=== PATIENT | male | born 1935 | race Caucasian/White ===

== ENCOUNTER 2016-11-03 17:19 | Inpatient (IN) | payer MEDICARE, OTHER ==
[2016-11-03] MEDS: NS 0.9% 1000 ML* 2,000 ML IV ONE ×2 (17:20→17:46)
[2016-11-03 17:37] LABS: Hematocrit 31 % (42-52); Mean Corpuscular HGB Conc 32 g/dl (31-36); Mean Corpuscular Hemoglobin 31 pg (27-31); Mean Corpuscular Volume 97 fL (80-94); Mean Platelet Volume 6 um3 (7.4-10.4); Red Blood Count 3.24 10^6/ul (4.0-5.4); Red Cell Distribution Width 16 % (10.5-15); White Blood Count 14.8 10^3/ul (3.5-10.8)
--- NOTE | 2016-11-03 17:49 | RAD ---
INDICATION: Altered mental status. COMPARISON: Comparison is made with a prior chest x-ray study from September 14, 2016. TECHNIQUE: A portable view of the chest was obtained. FINDINGS: There is a dual-chamber transvenous cardiac pacemaker present. The heart is within normal limits in size. The lungs are hyperinflated and clear. No pleural effusion is seen. IMPRESSION: NO EVIDENCE FOR ACUTE DISEASE.
[2016-11-03 17:51] LABS: ALT 8 U/L (7-52); AST 11 U/L (13-39); Albumin 2.5 g/dL (3.2-5.2); Alkaline Phosphatase 27 U/L (34-104); Anion Gap 12 mmol/L (2-11); BUN/Creatinine Ratio 16.7 (8-20); Blood Urea Nitrogen 19 mg/dL (6-24); C Reactive Protein < 1.00 mg/L (< 5.00); CO2 Carbon Dioxide 15 mmol/L (22-32); Calcium 7.2 mg/dL (8.6-10.3); Chloride 114 mmol/L (101-111); Creatine Kinase 38 U/L (10-223); EGFR African American 79.1 (>60); EGFR Non-African American 61.5 (>60); Globulin 1.7 g/dL (2-4); Glucose 257 mg/dL (70-100); Magnesium 1.6 mg/dL (1.9-2.7); Potassium 3.5 mmol/L (3.5-5.0); Sodium 141 mmol/L (133-145); Total Protein 4.2 g/dL (6.4-8.9)
[2016-11-03 18:02] LABS: Troponin I 0.04 ng/mL (<0.04)
[2016-11-03 18:31] LABS: Acetaminophen < 15 mcg/mL; Alcohol < 10 mg/dL (<10); Salicylate < 2.50 mg/dL (<30)
[2016-11-03 18:41] LABS: TSH (Thyroid Stimulating Horm) 3.35 mcIU/mL (0.34-5.60)
--- NOTE | 2016-11-03 19:41 | ED ---
Josef Tomlin Janilya, scribed for Cecilio Soto MD on 11/03/16 at 1753 . Laceration/Wound HPI - HPI Summary HPI Summary: A 81 y/o was BIBA for self-inflicted bilateral anterior wrist lacerations starting today at approx 1650. Police and EMS was called by pt's . When police arrived, pt was found in the bedroom. Pt cut both of his arms in the bathroom with two steak knives. Per EMS and police, there was significant amount of blood in the bathtub, approx 6 inches deep. In hospital, pt reports he cut himself in order to commit suicide. Pt denies being in pain, but does state he is extremely cold and shaky. PMHx pacemaker, afib, pneumonia. - History of Current Complaint Stated Complaint: ARM LACERATIONS Time Seen by Provider: 11/03/16 17:21 Hx Obtained From: Patient, EMS Mechanism of Injury: Sharp/Blunt Trauma Onset/Duration: Sudden Onset Alleviating: Compression Timing: Constant Onset Severity: Moderate Current Severity: Moderate - Additional Pertinent History Primary Care Physician: [id number] - Allergy/Home Medications Allergies/Adverse Reactions: Allergies Allergy/AdvReac Type Severity Reaction Status Date / Time No Known Allergies Allergy Verified 01/19/16 19:24 Home Medications: Home Medications Acetaminophen TAB* [Tylenol TAB*] 500 mg PO BEDTIME 11/03/16 [History Confirmed 11/03/16] PMH/Surg Hx/FS Hx/Imm Hx Endocrine/Hematology History: Reports: Hx Anemia Denies: Hx Diabetes Cardiovascular History: Denies: Hx Hypertension Respiratory History: Reports: Hx Pneumonia, Other Respiratory Problems/ Disorders - PNEUMONIA GI History: Reports: Hx Irritable Bowel Denies: Hx Jaundice History: Denies: Hx Renal Disease Musculoskeletal History: Reports: Hx Back Problems, Other Musculoskeletal History - Resloved Herniated Disk, Bilat Knee Replacement Sensory History: Reports: Hx Contacts or Glasses Opthamlomology History: Reports: Hx Contacts or Glasses Neurological History: Reports: Other Neuro Impairments/Disorders - admitted with hyponatremia and ams - Surgical History Surgery Procedure, Year, and Place: Appendectomy, Bilat. Knee Replacement Infectious Disease History: No Infectious Disease History: Denies: Traveled Outside the [place] in Last 30 Days - Family History Known Family History: Negative: Cardiac Disease, Hypertension, Diabetes - Social History Lives: With Family Alcohol Use: None Substance Use Type: Reports: None Smoking Status (MU): Never Smoked Tobacco Review of Systems Negative: Fever Positive: Other - lacerations on both arms All Other Systems Reviewed And Are Negative: Yes Physical Exam Triage Information Reviewed: Yes Vital Signs On Initial Exam: Initial Vitals Temp Pulse Resp BP Pulse Ox 96.7 F 105 17 164/71 93 11/03/16 17:21 11/03/16 17:21 11/03/16 17:21 11/03/16 17:21 11/03/16 17:21 Vital Signs Reviewed: Yes Appearance: Positive: Well-Appearing, No Pain Distress Skin: Positive: Other - bilateral anterior wrist lacerations. Both 4.5cm SC with venous bleeding. No arterial or tendon involvement. Lacerations sutured by PA. Head/Face: Positive: Normal Head/Face Inspection Eyes: Positive: EOMI, ODALYS ENT: Positive: Normal ENT inspection Neck: Positive: Supple, Nontender Respiratory/Lung Sounds: Positive: Clear to Auscultation, Breath Sounds Present Cardiovascular: Positive: RRR Abdomen Description: Positive: Nontender, Soft Bowel Sounds: Positive: Present Musculoskeletal: Positive: Normal, Strength/ROM Intact Neurological: Positive: Normal, Sensory/Motor Intact, Alert, Oriented to Person Place, Time Psychiatric: Positive: Affect/Mood Appropriate Diagnostics - Vital Signs Vital Signs Temp Pulse Resp BP Pulse Ox 11/03/16 17:21 96.7 F 105 17 164/71 93 - Laboratory Lab Results: Lab Results 11/03/16 11/03/16 11/03/16 Range/Units 17:25 17:25 17:25 WBC 14.8 H (3.5-10.8) 10^3/ul RBC 3.24 L (4.0-5.4) 10^6/ul Hgb 10.0 L (14.0-18.0) g/dl Hct 31 L (42-52) % MCV 97 H (80-94) fL MCH 31 (27-31) pg MCHC 32 (31-36) g/dl RDW 16 H (10.5-15) % Plt Count 191 (150-450) 10^3/ul MPV 6 L (7.4-10.4) um3 Neut % (Auto) 83.6 H (38-83) % Lymph % (Auto) 9.8 L (25-47) % Grimes % (Auto) 6.2 (1-9) % Eos % (Auto) 0.1 (0-6) % Baso % (Auto) 0.3 (0-2) % Absolute Neuts (auto) 12.3 H (1.5-7.7) 10^3/ul Absolute Lymphs (auto) 1.4 (1.0-4.8) 10^3/ul Absolute Monos (auto) 0.9 H (0-0.8) 10^3/ul Absolute Eos (auto) 0 (0-0.6) 10^3/ul Absolute Basos (auto) 0 (0-0.2) 10^3/ul Absolute Nucleated RBC 0 10^3/ul Nucleated RBC % 0 INR (Anticoag Therapy) 1.12 H (0.89-1.11) APTT 26.7 (26.0-36.3) seconds Sodium 141 (133-145) mmol/L Potassium 3.5 (3.5-5.0) mmol/L Chloride 114 H (101-111) mmol/L Carbon Dioxide 15 L (22-32) mmol/L Anion Gap 12 H (2-11) mmol/L BUN 19 (6-24) mg/dL Creatinine 1.14 (0.67-1.17) mg/dL Est GFR ( Amer) 79.1 (>60) Est GFR (Non-Af Amer) 61.5 (>60) BUN/Creatinine Ratio 16.7 (8-20) Glucose 257 H (70-100) mg/dL Lactic Acid (0.5-2.0) mmol/L Calcium 7.2 L (8.6-10.3) mg/dL Magnesium 1.6 L (1.9-2.7) mg/dL Total Bilirubin 1.70 H (0.2-1.0) mg/dL AST 11 L (13-39) U/L ALT 8 (7-52) U/L Alkaline Phosphatase 27 L (34-104) U/L Total Creatine Kinase 38 (10-223) U/L CK-MB (CK-2) 2.2 (0.6-6.3) ng/mL Troponin I 0.04 H* (<0.04) ng/mL C-Reactive Protein < 1.00 (< 5.00) mg/L B-Natriuretic Peptide ( - 100) pg/mL Total Protein 4.2 L (6.4-8.9) g/dL Albumin 2.5 L (3.2-5.2) g/dL Globulin 1.7 L (2-4) g/dL Albumin/Globulin Ratio 1.5 (1-3) TSH 3.35 (0.34-5.60) mcIU/mL Salicylates < 2.50 (<30) mg/dL Acetaminophen < 15 mcg/mL Serum Alcohol < 10 (<10) mg/dL Blood Type Antibody Screen Crossmatch 11/03/16 11/03/16 11/03/16 Range/Units 17:25 17:25 17:25 WBC (3.5-10.8) 10^3/ul RBC (4.0-5.4) 10^6/ul Hgb (14.0-18.0) g/dl Hct (42-52) % MCV (80-94) fL MCH (27-31) pg MCHC (31-36) g/dl RDW (10.5-15) % Plt Count (150-450) 10^3/ul MPV (7.4-10.4) um3 Neut % (Auto) (38-83) % Lymph % (Auto) (25-47) % Grimes % (Auto) (1-9) % Eos % (Auto) (0-6) % Baso % (Auto) (0-2) % Absolute Neuts (auto) (1.5-7.7) 10^3/ul Absolute Lymphs (auto) (1.0-4.8) 10^3/ul Absolute Monos (auto) (0-0.8) 10^3/ul Absolute Eos (auto) (0-0.6) 10^3/ul Absolute Basos (auto) (0-0.2) 10^3/ul Absolute Nucleated RBC 10^3/ul Nucleated RBC % INR (Anticoag Therapy) (0.89-1.11) APTT (26.0-36.3) seconds Sodium (133-145) mmol/L Potassium (3.5-5.0) mmol/L Chloride (101-111) mmol/L Carbon Dioxide (22-32) mmol/L Anion Gap (2-11) mmol/L BUN (6-24) mg/dL Creatinine (0.67-1.17) mg/dL Est GFR ( Amer) (>60) Est GFR (Non-Af Amer) (>60) BUN/Creatinine Ratio (8-20) Glucose (70-100) mg/dL Lactic Acid 9.4 H* (0.5-2.0) mmol/L Calcium (8.6-10.3) mg/dL Magnesium (1.9-2.7) mg/dL Total Bilirubin (0.2-1.0) mg/dL AST (13-39) U/L ALT (7-52) U/L Alkaline Phosphatase (34-104) U/L Total Creatine Kinase (10-223) U/L CK-MB (CK-2) (0.6-6.3) ng/mL Troponin I (<0.04) ng/mL C-Reactive Protein (< 5.00) mg/L B-Natriuretic Peptide 46 ( - 100) pg/mL Total Protein (6.4-8.9) g/dL Albumin (3.2-5.2) g/dL Globulin (2-4) g/dL Albumin/Globulin Ratio (1-3) TSH (0.34-5.60) mcIU/mL Salicylates (<30) mg/dL Acetaminophen mcg/mL Serum Alcohol (<10) mg/dL Blood Type O Negative Antibody Screen Negative Crossmatch See Detail Result Diagrams: 11/03/16 17:25 11/03/16 17:25 Lab Statement: Any lab studies that have been ordered have been reviewed, and results considered in the medical decision making process. - Radiology CXR Xray Interpretation: No Acute Changes Radiology Interpretation Completed By: Radiologist - IMPRESSION: No evidence for acute disease. Re-Evaluation - Re-Evaluation First Eval Re-Evaluation Time: 18:15 Change: Improved Comment: There are bilateral subcutaneous lacerations of 4.5 cm. There is venous bleeding; no arterial bleeding. No obvious tendon injury. Laceration Repair Course/Dx - Course Assessment/Plan: PATIENT RESUSCITATED WITH NS 2L AND 2 UNITS PRBCS. B/L WRIST LACERATIONS; BOTH SC WITH VENOUS BLEEDING, NO ARTERIAL OR TENDON INJURY. HANDS/ WRISTS WITH FROM, FULL STRENGTH. AFTER REPAIR, NORMAL CAPILLARY REFILL. DUE TO THE HYPOVOLEMIC HYPOTENSIVE EPISODE WITH RAPID RESUSCITATION AND PATIENT'S AGE OF 81 YO, HE IS ADMITTED STABLE TO HOSPITALIST. MHE EVAL PENDING. - Clinical Impression Provider Diagnoses: Suicide attempt, Blood loss Discharge - Discharge Plan Condition: Stable Disposition: ADMITTED TO [facility] Referrals: Kishan Raymond MD [Primary Care Provider] - The documentation as recorded by the Josef gracia Janilya accurately reflects the service I personally performed and the decisions made by me, Cecilio Soto MD.
--- NOTE | 2016-11-03 19:49 | PN ---
Progress Note - Progress Note Note: Laceration of ventral side of wrists bilaterally. laceration to L wrist 4cm. Laceration to R wrist 4 cm. Patient cleaned and draped in sterile fashion. Local anesthetic used 1% lido without epi 3ml each wrist. monocryl 5-0 used non-absorbable sutures. 11 sutures in L wrist. 10 sutures in right wrist. Pressure dressing applied bilaterally.
[2016-11-03] MEDS ORDERED: Tetan/Diph/Pertus SYR(Tdap)* 0.5 ML SYR(BOOSTRIX) use SYR IM ONE (20:04)
[2016-11-03 20:10] LABS: Calcium (PTH Intact) 7.5 mg/dL (8.6-10.3)
[2016-11-03] MEDS ORDERED: Magnesium Sulfate 2 GM IV* 2 GM/50 ML BAG IVPB ONE (21:24)
[2016-11-03 23:03] LABS: Hematocrit 34 % (42-52); Hemoglobin 11.5 g/dl (14.0-18.0); Mean Corpuscular HGB Conc 34 g/dl (31-36); Mean Corpuscular Hemoglobin 31 pg (27-31); Mean Corpuscular Volume 90 fL (80-94); Mean Platelet Volume 7 um3 (7.4-10.4); Red Blood Count 3.77 10^6/ul (4.0-5.4); Red Cell Distribution Width 17 % (10.5-15); White Blood Count 13.9 10^3/ul (3.5-10.8)
[2016-11-03 23:18] LABS: BUN/Creatinine Ratio 23.2 (8-20); Calcium 8.2 mg/dL (8.6-10.3); EGFR African American 97.6 (>60); EGFR Non-African American 75.9 (>60); Globulin 1.9 g/dL (2-4); Potassium 4.5 mmol/L (3.5-5.0); Total Bilirubin 3.1 mg/dL (0.2-1.0); Total Protein 4.9 g/dL (6.4-8.9)
[2016-11-03] MEDS: Triazolam TAB* 0.25 MG PO SCH (23:52)
[2016-11-03] MEDS: Acetaminophen TAB* 325 MG PO PRN ×2 (23:53→23:59)
--- NOTE | 2016-11-04 00:28 | HP ---
ADMISSION HISTORY AND PHYSICAL: DATE OF ADMISSION: 11/03/16 PRIMARY CARE PROVIDER: Kishan Raymond MD ADMITTING PROVIDER: CHELSEA Faulkner SUPERVISING PHYSICIAN: Keaton Estrada MD * (DICTATED BY CHELSEA FAULKNER) CHIEF COMPLAINT: Suicide attempt. HISTORY OF PRESENT ILLNESS: This is an 81-year-old gentleman with a history of anxiety, irritable bowel syndrome, symptomatic bradycardia status post pacemaker insertion and paroxysmal atrial fibrillation, not currently anticoagulated who was brought to the emergency department by EMS after a suicide attempt. The patient attempted suicide by lacerating both of his wrists. He was awake and alert and apparently ambulatory at home when EMS arrived. There was a large volume of blood appreciated in both the bathtub and the patient's bedroom. The patient's was away for the afternoon and returned to find him in their bedroom at which point she contacted EMS. The patient received volume resuscitation in the emergency department and received 2 L of normal saline and 2 units of packed red blood cells. The patient has been suffering from declining health over the last several months. He has had significant weight loss and feelings of persistent chest pressure ever since his admission for pneumonia the last month. He finds this extremely uncomfortable and he is unable to lie in a flat position, which used to provide some relief for some chronic back pain. He did see his primary care provider, Dr. Kishan Raymond, recently for this complaint and has been referred to Pulmonology and has other pending workup. The patient cites this decline in his health status as the inciting factor for his suicide attempt. The patient reports that he is frustrated at failing at his suicide attempt and if he was given the opportunity to decisively in the next several minutes, he would take it. The patient did leave a note for his to find. There is no history of prior suicide attempts or ideations. The patient's was not aware of any significant depression that led to this event this evening. PAST MEDICAL HISTORY: 1. Symptomatic bradycardia status post pacemaker insertion. 2. Irritable bowel syndrome. 3. Anxiety. 4. BPH. 5. Glaucoma. 6. History of paroxysmal atrial fibrillation for which he declined anticoagulation. 7. Recent hospital admission for pneumonia and SIADH. PAST SURGICAL HISTORY: 1. Bilateral total knee arthroplasty. 2. Pacemaker insertion in June 2016. HOME MEDICATIONS: 1. Acetaminophen 500 mg p.o. at bedtime. 2. Alfuzosin 10 mg p.o. at bedtime. 3. Alphagan eye drops 0.1% solution, 1 drop in both eyes. 4. Dorzolamide ophthalmic solution 2%, 1 drop in both eyes. 5. Finasteride 5 mg p.o. daily. 6. Xalatan 0.005% solution with 1 drop in both eyes. 7. Triazolam 0.5 mg p.o. at bedtime. FAMILY HISTORY: The patient denies history of cardiac disease, diabetes, or hypertension. 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 He lives at home with his . He denies any history of smoking and reports occasional alcohol consumption. The patient recently returned home from a rehab stay at [facility] after his recent hospital admission for pneumonia. REVIEW OF SYSTEMS: The patient denies most review of systems. He is complaining of some pain in his wrists and he is overall depressed, disappointed , and frustrated. He denies any chest pain, shortness of breath, abdominal pain , nausea, vomiting, or diarrhea. He denies any blurred vision, double vision, or headache. PHYSICAL EXAMINATION GENERAL: This is a well-appearing elderly male, lying comfortably in hospital stretcher. He appears quite depressed and frustrated but is otherwise appropriate in conversation. VITAL SIGNS: Initial vitals are temperature of 96.7 degrees Fahrenheit, pulse 105 beats per minute, respiratory rate 17 per minute, oxygen saturation 93% on room air, and blood pressure of 164/71 mmHg. HEENT: Head is normocephalic and atraumatic with moist mucous membranes. LUNGS: Lungs are clear to auscultation without wheezes, crackles, or rhonchi. CARDIOVASCULAR: Heart has a regular rate and rhythm without murmurs, rubs, or gallops. ABDOMEN: Soft and nontender to palpation. EXTREMITIES: Both upper extremities have an intact bandage around both wrists. No lower extremity edema appreciated. PSYCH: The patient is alert and appropriately oriented. He appears depressed with appropriate affect and is quite frustrated by his failed suicide attempt as well as his current medical status. LABORATORY EVALUATION: CBC shows a white blood cell count of 14,800, hemoglobin of 10 g/dL, platelet count of 191,000. INR of 1.12. Comprehensive metabolic panel shows sodium of 141 mmol/L. Serum bicarb of 15. BUN of 19, creatinine of 1.14 with estimated GFR of 61. Random glucose of 257 mg/dL. Lactic acid 9.4. Magnesium 1.6. Total bilirubin elevated at 1.7 with normal transaminases. Troponin is 0.04. TSH normal at 3.35. Toxicology screen is negative. IMAGING: EKG is difficult to interpret due to a significant amount of artifact but appears to be a sinus rhythm. Chest x-ray shows no acute disease. ASSESSMENT AND PLAN: This is an 81-year-old gentleman with a history of symptomatic bradycardia, anxiety, irritable bowel syndrome, and paroxysmal atrial fibrillation who presented after a suicide attempt by bilateral wrist laceration. 1. Suicide attempt by bilateral wrist laceration - initial blood loss estimates were significant but the patient remained hemodynamically stable and largely asymptomatic. He did receive appropriate fluids and transfusion in the emergency department. We will plan to repeat hemoglobin and hematocrit at this time. The patient has multiple metabolic derangements that can all be explained by his blood loss and expect resolution after the appropriate volume replacement that he received. We will also check parathyroid hormone as hyperparathyroidism may be responsible for depression, especially in an elderly adult. Calcium level is low but with his hypovolemic state, this may be inaccurate. TSH is noted to be within normal limits. The patient will require suicide precaution and continued one-to- one observation with pending psychiatric consult for tomorrow morning. 2. Leukocytosis - assume that this is a leukemoid reaction secondary to this afternoon's event. We will plan to repeat a CBC in the morning. 3. Lactic acidosis - lactic acid is 9.4 with serum bicarb of 15 - again, assume this is secondary to acute blood loss and subsequent hypoperfusion. Repeat labs are pending at this time. 4. Hypomagnesemia - replace IV and repeat labs tomorrow morning. 5. Elevated troponin - assume that this is demand related. The patient has had chronically elevated troponins in the past. No evidence of acute coronary syndrome. We will plan to trend these overnight. 6. History of paroxysmal atrial fibrillation, not anticoagulated - we will maintain telemetry monitoring overnight. 7. Symptomatic bradycardia with pacemaker in place. 8. DVT prophylaxis - the patient is at moderate risk for DVT. Medical prophylaxis is contraindicated with his recent bleeding event and laceration. We will order sequential compression devices, however. 9. Code status. The patient has previously identified himself as full code. This was not readdressed in his current state. The patient will continue full code status at this time. 10. Healthcare proxy is listed as his . DISPOSITION: The patient is being admitted to the hospital after a suicide attempt and acute blood loss. Anticipate stabilization overnight and will request psychiatric consultation tomorrow with anticipation of a psychiatric admission. CHELSEA FAULKNER CC: Kishan Raymond MD* [id number]/CPS #: [id number] [id number]
[2016-11-04 03:01] LABS: Urine Bilirubin Negative (Negative); Urine Glucose Negative (Negative); Urine Nitrite Negative (Negative)
[2016-11-04] MEDS: Acetaminophen TAB* 325 MG PO PRN (03:13)
[2016-11-04 03:22] LABS: Benzodiazepine Urine Screen Presumptive Positive (None Detect)
[2016-11-04] MEDS: CMCS: Brimonidine P 0.1%(NF) 1 DROP BTL BOTH EYES SCH ×2 (07:55→19:20)
[2016-11-04] MEDS: CMCS: Dorzolamide 2% OPTH (NF) 10 ML BTL BOTH EYES SCH ×2 (08:48→19:36)
[2016-11-04] MEDS ORDERED: Finasteride TAB* 5 MG PO SCH (09:00)
[2016-11-04 14:21] LABS: Hematocrit 29 % (42-52); Mean Corpuscular HGB Conc 34 g/dl (31-36); Mean Corpuscular Hemoglobin 31 pg (27-31); Mean Corpuscular Volume 91 fL (80-94); Mean Platelet Volume 7 um3 (7.4-10.4); Red Blood Count 3.24 10^6/ul (4.0-5.4); Red Cell Distribution Width 17 % (10.5-15); White Blood Count 11.6 10^3/ul (3.5-10.8)
[2016-11-04 14:33] LABS: Albumin 2.9 g/dL (3.2-5.2); BUN/Creatinine Ratio 30.7 (8-20); Calcium 8.2 mg/dL (8.6-10.3); Direct Bilirubin 0.4 mg/dL (0.03-0.18); EGFR African American 106.6 (>60); EGFR Non-African American 82.9 (>60); Globulin 1.8 g/dL (2-4); Indirect Bilirubin 1.6 mg/dL (0.3-1.0); Potassium 3.8 mmol/L (3.5-5.0); Total Protein 4.7 g/dL (6.4-8.9)
[2016-11-04 14:34] LABS: Ammonia 41 mol/L (16-53)
[2016-11-04 14:39] LABS: B Type Natriuretic Peptide 68 pg/mL
[2016-11-04 14:43] LABS: Troponin I 0.07 ng/mL (<0.04)
--- NOTE | 2016-11-04 16:05 | CONSULT ---
Subjective Date of Service: 11/04/16 Interval History: Admission date 11/03/2016 Consult date 11/04/2016 Service: Dr. Michelle Moreno PMD: Dr. Raymond CC: Suicide attempt Reason for consult: Chest pain, abnormal troponin level, consideration cardiac catheterization vs. 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 Patient was admitted in September with a pneumonia, critically ill, intubated and subsequently went to [facility] [place]. Had been complaining of persistent focal left sided chest pain and dyspnea while laying flat. No real exertional change in symptoms or worsening with food. A pulmonary work-up had begun but between these symptoms that were not resolving and overall declining health he decided to attempt suicide with slashed wrists. His lactate went to 9.4 and troponin was mildly elevated to 0.16. EKG was uninterpretable due to artifact. His symptoms have persisted. The pain is not reproducible and not pleuritic PAST MEDICAL HISTORY: As above episode of Afib during pneumonia hospitalization PAST SURGICAL HISTORY: 1. Bilateral total knee arthroplasty. 2. Pacemaker insertion in June 2016. FAMILY HISTORY: The patient denies history of cardiac disease, diabetes, or hypertension. allergies nkda Pmhx as above Cardiac Procedures: Pacemaker Implantation - (06/25/2016) Dual Chamber [employer] #[id number] MRI device FH: father suicde SH: Occupation: Retired - [employer] Personal Habits: Smoking: Patient has never smoked.Cigarette Use: Never Smoked Cigarettes. Alcohol: Denies alcohol use. Drug Use: Denies Drug Use. Medications Active Medications: Acetaminophen (Tylenol Tab*) 650 mg PO Q4H PRN PRN Reason: FEVER/PAIN Last Admin: 11/04/16 03:13 Dose: 325 mg Brimonidine Tartrate (Alphagan P 0.1% (Nf)) 1 drop BOTH EYES BID FILOMENA Last Admin: 11/04/16 07:55 Dose: 1 drop Dorzolamide HCl (Trusopt 2% Opth (Nf)) 1 drop BOTH EYES BID FILOMENA PRN Reason: Protocol Last Admin: 11/04/16 08:48 Dose: 1 drop Finasteride (Proscar Tab*) 5 mg PO 1800 FILOMENA Latanoprost (Xalatan 0.005%*) 1 drop BOTH EYES BEDTIME FILOMENA Triazolam (Halcion Tab*) 0.5 mg PO BEDTIME FILOMENA Last Admin: 11/03/16 23:52 Dose: 0.5 mg Home Medications: Dorzolamide 2% OPTH (NF) [Trusopt 2% OPTH (NF)] 1 drop BOTH EYES BID 01/19/16 [ History Confirmed 11/03/16] Finasteride [Proscar] 5 mg PO DAILY 01/19/16 [History Confirmed 11/03/16] Latanoprost 0.005% OPTH (NF) [Xalatan 0.005% OPTH*] 1 drop BOTH EARS BEDTIME 04/28 [History Confirmed 11/03/16] Alfuzosin HCl [Alfuzosin HCl ER] 10 mg PO QPM 06/25/16 [History Confirmed ] Brimonidine P 0.1%(NF) [Alphagan P 0.1% (NF)] 1 drop BOTH EYES BID 06/25/16 [ History Confirmed 11/03/16] Triazolam TAB* [Halcion TAB*] 1 - 2 tab PO BEDTIME 06/25/16 [History Confirmed 11/03/16] Acetaminophen TAB* [Tylenol TAB*] 500 mg PO BEDTIME 11/03/16 [History Confirmed 11/03/16] Review of Systems - Measurements Intake and Output: Intake and Output Last 24 Hours 11/02/16 11/03/16 11/04/16 11/05/16 06:59 06:59 06:59 06:59 Intake Total 500 760 Output Total 0 Balance 500 760 Weight 124 lb Intake: IVPB 60 MG 60 Oral 440 760 Output: Urine 0 Other: Estimated Void Small Small # Bowel Movements 1 1 Estimated Stool Amount Small # Voids 4 2 - Review of Systems Constitutional Symptoms: Positive: Weight Loss, Weakness, Fatigue Negative: Weight Gain, Fever, Night Sweats, Unexplained Falls Dermatology: Negative: Normal, Rash, Skin Lesions HEENT: Negative: Change in Hearing, Vertigo Eyes: Negative: Change in Vision, Double Vision, Eye Pain Thyroid: Positive: Sweatiness, Weight Loss Negative: Cold Intolerance, Heat Intolerance, Tremor, Frequent Defecation, Constipation, Palpitations, Primary Hypothyroidism, Primary Hyperthyroidism, Weight Gain, Change in Skin/Hair Pulmonary: Positive: Cough Negative: Sputum, Hemoptysis, Wheezing, Respiratory Distress, Shortness of Breath, COPD, Asthma, Exercise Intolerance, Home Oxygen Cardiology: Positive: Chest Pain, Shortness of Breath, Other Negative: Palpitations, Swelling of Ankles, Peripheral Vascular Dis, Edema, Faintness, Syncope, Claudication, Paroxysmal Nocturnal Dyspnea, Orthopnea Gastroenterology: Negative: Abdominal Pain, Nausea, Vomiting, Anorexia, Indigestion, Difficulty Swallowing, Heartburn, Constipation, Diarrhea, Blood in Stools, Change in Bowel Habits, Haematemesis, Melena Genital - Urinary: Negative: Dysuria, Hematuria, Polyuria, Nocturia Musculoskeletal: Negative: Joint Pain, Joint Stiffness, Arthritis, Osteoporosis, Low Back Pain , Sciatica Endocrinology: Positive: Normal Negative: Thyroid Problems, Obesity, Diabetes, Calluses, Polydipsia, Polyuria Hematologic/Lymphatic: Negative: Hx Leukemia, Hx Lymphoma Neurology: Positive: Change in Memory, Unexplained Weakness Negative: Headaches, Migraines, Change in Vision, Diplopia, Dizziness, Change in Balancing, Change in Speech, Change in Sphincter Function, Change in Walking, Hx of Stroke\TIA, Hx Seizures Psychiatry: Positive: Weight Change, Suicidal Ideation Negative: Eating Disorders Allergic/Immunologic: Negative: Hx Anaphylaxis, Hx Angioedema, Hx Environmental Allergies, Hx Seasonal Allergies, Hx HIV, Immunocompromise Review of Systems Statement: All other review of systems negative, unless stated above. Objective Vital Signs: Temp Pulse Resp BP Pulse Ox 98.6 F 61 18 113/60 98 11/04/16 07:38 11/04/16 07:38 11/04/16 08:00 11/04/16 07:38 11/04/16 07:38 Appearance: nad Ears/Nose/Mouth/Throat: Clear Oropharnyx, Mucous Membranes Moist Neck: NL Appearance and Movements; NL JVP, Trachea Midline Respiratory: Symmetrical Chest Expansion and Respiratory Effort, Clear to Auscultation Cardiovascular: NL Sounds; No Murmurs; No JVD, RRR, No Edema Abdominal: NL Sounds; No Tenderness; No Distention Extremities: No Edema, No Clubbing, Cyanosis, - - wrists wrapped Skin: No Rash or Ulcers Neurological: Alert and Oriented x 3, NL Muscle Strength and Tone Laboratory Results: 11/04/16 14:10 11/04/16 14:10 INR (Anticoag Therapy) 1.12 (0.89-1.11) H 11/03/16 17:25 APTT 26.7 seconds (26.0-36.3) 11/03/16 17:25 Total Bilirubin 2.00 mg/dL (0.2-1.0) H 11/04/16 14:10 Direct Bilirubin 0.40 mg/dL (0.03-0.18) H 11/04/16 14:10 Indirect Bilirubin 1.6 mg/dL (0.3-1.0) H 11/04/16 14:10 AST 16 U/L (13-39) 11/04/16 14:10 ALT 10 U/L (7-52) 11/04/16 14:10 Alkaline Phosphatase 30 U/L (34-104) L 11/04/16 14:10 CK-MB (CK-2) 2.2 ng/mL (0.6-6.3) 11/03/16 17:25 B-Natriuretic Peptide 68 pg/mL (-100) 11/04/16 14:10 Total Protein 4.7 g/dL (6.4-8.9) L 11/04/16 14:10 Albumin 2.9 g/dL (3.2-5.2) L 11/04/16 14:10 Globulin 1.8 g/dL (2-4) L 11/04/16 14:10 Albumin/Globulin Ratio 1.6 (1-3) 11/04/16 14:10 TSH 3.35 mcIU/mL (0.34-5.60) 11/03/16 17:25 11/04/16 11/04/16 11/04/16 02:00 04:52 14:10 Troponin I 0.16 H* 0.15 H* 0.07 H* Diagnostic Imaging: Cardiac Testing: Stress Test - (02/08/2016) Normal maximal cardiac exercise nuclear stress test. No evidence of ischemia/infarction. Normal chronotropic response to exercise. Quantatively normal LVF. Echocardiogram - (02/01/2016) Mild LVH, LVEF 55-60%, moderate LA dilation, mild MR that may be underestimated. EKG - (01/26/2016) Overall rate in the 50s. There are 2 PVCs, the one PVC is followed by 2 junctional escape beats, and then sinus rhythm resumes. Assessment/Plan Symptoms appear atypical for cardiac cause although given severty of symptoms that he attributes this to suicide attempt will further evaluate. There are obviously other issues aside from these medical symptoms and a psychiatry consult is pending. Abnormal troponin likely due to myocardal hypoperfusion with hemorrhage. Fixed obstructive CAD cannot be excluded although I do no think he would benefit from revascularization at this time. Will further work- up with an EKG, TTE and stress test (all ordered).
[2016-11-04] MEDS: Finasteride TAB* 5 MG PO SCH (19:19)
[2016-11-04] MEDS: CMCS: Alfuzosin ER (NF) 10 MG TAB.ER PO SCH (19:19)
[2016-11-04] MEDS: Latanoprost 0.005%* 2.5 ml BTL BOTH EYES SCH (19:29)
[2016-11-04] MEDS: Triazolam TAB* 0.25 MG PO SCH (21:56)
[2016-11-05 06:39] LABS: Hematocrit 28 % (42-52); Hemoglobin 9.7 g/dl (14.0-18.0); Mean Corpuscular HGB Conc 35 g/dl (31-36); Mean Corpuscular Hemoglobin 31 pg (27-31); Mean Corpuscular Volume 90 fL (80-94); Mean Platelet Volume 7 um3 (7.4-10.4); Red Blood Count 3.08 10^6/ul (4.0-5.4); Red Cell Distribution Width 17 % (10.5-15)
[2016-11-05 06:59] LABS: BUN/Creatinine Ratio 29.6 (8-20); Calcium 8.1 mg/dL (8.6-10.3); EGFR African American 117.3 (>60); EGFR Non-African American 91.2 (>60); Potassium 3.7 mmol/L (3.5-5.0)
--- NOTE | 2016-11-05 08:40 | PN ---
Subjective - Subjective Reason for Note: Progress Note History: I reviewed his presentation with the patient, the admitting H and P provided by CHELSEA Rico and Dr. Kody Quezada's consultation note. He attempted suicide by lacerating his wrists and sustained significant blood loss. According to the patient, he feels hopeless as he has difficulty breathing/ chest pressure that is with him continuously. He states that he had a visit to Dr. Lara for a consultation and she told him it was "hopeless" and that he had this problem in his chest that won't go away and he will have to live with this sensation. He states that he feels that the suicide was a rational decision based upon his medical condition, symptoms and no hope for reprieve. He is depressed by these symptoms, but otherwise denies depression. He states he enjoys watching football, but has stopped watching the news due to current events. He expressed some cognitive distortions: * He stated that Dr. Lraa told him that this condition in his chest was hopeless and there was no chance of recovery. * He stated in his conversation with Dr. Michelle Moreno she told him that Dr. Lara's diagnosis was "Vilma Mouse" and she made disparaging remarks about Dr. Lara's opinion * He stated Dr. Michelle Moreno stated that suicide was a rational gesture if a medical condition was hopeless and there was no chance of improvement I spoke with Dr. Michelle Moreno this morning and she states that the patient stated that he thought that Dr. Lara's opinion was "Vilma Mouse" and that he had stated the notion that suicide was a rational choice if all medical avenues were hopeless and there was no chance of improvement. In other words, he had projected/flipped his own words onto her. This morning he continues to have symptoms in his chest. He describes lying flat worsening his symptoms. He denies chest pain, palpitations. He has no other new symptoms Depression: he states he is depressed as a reaction to his physical condition. He also states that he does not think his depression applies to other things - he is able to enjoy watching football, for example. He thinks it is a rational emotional reaction to his physical symptoms/condition which he thinks is hopeless. Active Problems: Active Problems Acute dyspnea (Acute) R06.00 Anxiety disorder (Acute) F41.9 Chest pressure (Acute) R07.89 Depression (Acute) F32.9 History of orthopnea (Acute) Z87.898 Suicide and self-inflicted injury (Acute) X83.8XXA Anorexia (Chronic) R63.0 Atrial fibrillation (Chronic) I48.91 BPH (benign prostatic hypertrophy) (Chronic) N40.0 Glaucoma (Chronic) H40.9 Irritable bowel disease (Chronic) Pacemaker (Chronic) Z95.0 Weight loss (Chronic) Current Medications: Current Medications Acetaminophen (Tylenol Tab*) 650 mg PO Q4H PRN PRN Reason: FEVER/PAIN Last Admin: 11/04/16 03:13 Dose: 325 mg Alfuzosin HCl (Uroxatral (Nf)) 10 mg PO 1800 [facility] Last Admin: 11/04/16 19:19 Dose: 10 mg Brimonidine Tartrate (Alphagan P 0.1% (Nf)) 1 drop BOTH EYES BID [facility] Last Admin: 11/04/16 19:20 Dose: 1 drop Dorzolamide HCl (Trusopt 2% Opth (Nf)) 1 drop BOTH EYES BID [facility] PRN Reason: Protocol Last Admin: 11/04/16 19:36 Dose: 1 drop Finasteride (Proscar Tab*) 5 mg PO 1800 [facility] Last Admin: 11/04/16 19:19 Dose: 5 mg Latanoprost (Xalatan 0.005%*) 1 drop BOTH EYES BEDTIME [facility] Last Admin: 11/04/16 19:29 Dose: 1 drop Triazolam (Halcion Tab*) 0.5 mg PO BEDTIME [facility] Last Admin: 11/04/16 21:56 Dose: 0.5 mg - Review of Systems Constitutional Symptoms: No: Fever, Night Sweats Dermatology: Rash: No Pulmonary: Positive: Respiratory Distress Negative: Cough, Hemoptysis Cardiology: Positive: Chest Pain Negative: Shortness of Breath, Palpitations, Swelling of Ankles Gastroenterology: Negative: Abdominal Pain, Nausea, Vomiting, Change in Bowel Habits Genital - Urinary: Negative: Dysuria, Polyuria Home Medications: Home Medications Medication Instructions Recorded Confirmed Type Dorzolamide 2% OPTH (NF) [Trusopt 1 drop BOTH EYES BID 01/19/16 11/03/16 History 2% OPTH (NF)] Finasteride [Proscar] 5 mg PO DAILY 01/19/16 11/03/16 History Latanoprost 0.005% OPTH (NF) 1 drop BOTH EARS BEDTIME 01/19/16 11/03/16 History [Xalatan 0.005% OPTH*] Alfuzosin HCl [Alfuzosin HCl ER] 10 mg PO QPM 06/25/16 11/03/16 History Brimonidine P 0.1%(NF) [Alphagan P 1 drop BOTH EYES BID 06/25/16 11/03/16 History 0.1% (NF)] Triazolam TAB* [Halcion TAB*] 1 - 2 tab PO BEDTIME 06/25/16 11/03/16 History Acetaminophen TAB* [Tylenol TAB*] 500 mg PO BEDTIME 11/03/16 11/03/16 History Allergies: Allergies Allergy/AdvReac Type Severity Reaction Status Date / Time No Known Allergies Allergy Verified 01/19/16 19:24 Objective - Vital Signs Vital Signs: Vital Signs 11/04/16 11/04/16 11/04/16 15:17 19:30 19:45 Temperature 98.3 F 98.5 F Pulse Rate 59 59 Respiratory 16 16 16 Rate Blood Pressure 106/52 102/53 (mmHg) O2 Sat by Pulse 98 97 Oximetry 11/05/16 04:24 Temperature 98.3 F Pulse Rate 59 Respiratory 16 Rate Blood Pressure 105/53 (mmHg) O2 Sat by Pulse 98 Oximetry - Intake and Output Intake and Output: Intake & Output 11/02/16 11/03/16 11/04/16 11/05/16 11:59 11:59 11:59 11:59 Intake Total 860 600 Output Total 0 Balance 860 600 Weight 124 lb Intake: IVPB 60 MG 60 Oral 800 600 Output: Urine 0 Other: Estimated Void Small Medium # Bowel Movements 1 0 Estimated Stool Amount Small # Voids 4 3 ADLs: Meal Record Start: 11/03/16 22: 02 Freq: DAILY@0900,1400,1800 Status: Active Document 11/04/16 09:00 [id number] (Rec: 11/04/16 12:37 [id number] [employer]-M10) Document 11/04/16 12:38 [id number] (Rec: 11/04/16 12:38 [id number] [employer]0) Document 11/04/16 18:00 [id number] (Rec: 11/04/16 18:46 [id number] TELE-C01) Intake and Output Start: 11/03/16 22: 02 Freq: DAILY@0600,1400,2200 Status: Active Document 11/04/16 05:40 [id number] (Rec: 11/04/16 05:42 [id number] TELE-M10) Document 11/04/16 12:40 [id number] (Rec: 11/04/16 12:40 [id number] TELE-M10) Document 11/04/16 21:44 [id number] (Rec: 11/04/16 21:44 [id number] TELE-M10) Document 11/05/16 05:36 [id number] (Rec: 11/05/16 05:37 [id number] TELE-C32) - Physical Exam General: No Cyanosis, Yes Anemia, No Jaundice, No Clubbing Eye Exam: bilateral: EOMI Skin: Normal: Rash Lungs and Chest: Yes: Chest Expansion Full, Chest Expansion Symetrica, Percussion Note Resonant, Vessicular Breath Sounds. No: Crackles, Wheezes Heart Rate and Rhythm: Regular Additional Cardiovascular: Yes: Normal Heart Sounds. No: Heart Murmur, Pedal Edema Abdominal Exam: Yes: Soft, Bowel Sounds Present. No: Distention, Abdominal Mass , Hepatomegaly, Splenomegaly - Extremities Cranial Nerves II-XII Intact: Yes Limbs: Normal Power, Normal Tone - Neuro Orientation: A/O x3 Psychiatric: Depressed Speech: Normal Results - Results Lab Results: Laboratory Results - last 24 hr 11/04/16 11/04/16 11/04/16 14:10 14:10 14:10 WBC 11.6 H RBC 3.24 L Hgb 10.0 L Hct 29 L MCV 91 MCH 31 MCHC 34 RDW 17 H Plt Count 150 MPV 7 L Neut % (Auto) Lymph % (Auto) [place] % (Auto) Eos % (Auto) Baso % (Auto) Absolute Neuts (auto) Absolute Lymphs (auto) Absolute Monos (auto) Absolute Eos (auto) Absolute Basos (auto) Absolute Nucleated RBC Nucleated RBC % Sodium 135 Potassium 3.8 Chloride 107 Carbon Dioxide 23 Anion Gap 5 BUN 27 H Creatinine 0.88 Est GFR ( Amer) 106.6 Est GFR (Non-Af Amer) 82.9 BUN/Creatinine Ratio 30.7 H Glucose 135 H Calcium 8.2 L Total Bilirubin 2.00 H Direct Bilirubin 0.40 H Indirect Bilirubin 1.6 H AST 16 ALT 10 Alkaline Phosphatase 30 L Ammonia 41 Troponin I 0.07 H* B-Natriuretic Peptide 68 Total Protein 4.7 L Albumin 2.9 L Globulin 1.8 L Albumin/Globulin Ratio 1.6 11/05/16 11/05/16 05:23 05:23 WBC 9.0 RBC 3.08 L Hgb 9.7 L Hct 28 L MCV 90 MCH 31 MCHC 35 RDW 17 H Plt Count 132 L MPV 7 L Neut % (Auto) 75.4 Lymph % (Auto) 14.5 L [place] % (Auto) 9.1 H Eos % (Auto) 0.7 Baso % (Auto) 0.3 Absolute Neuts (auto) 6.8 Absolute Lymphs (auto) 1.3 Absolute Monos (auto) 0.8 Absolute Eos (auto) 0.1 Absolute Basos (auto) 0 Absolute Nucleated RBC 0 Nucleated RBC % 0 Sodium 136 Potassium 3.7 Chloride 107 Carbon Dioxide 25 Anion Gap 4 BUN 24 Creatinine 0.81 Est GFR ( Amer) 117.3 Est GFR (Non-Af Amer) 91.2 BUN/Creatinine Ratio 29.6 H Glucose 90 Calcium 8.1 L Total Bilirubin Direct Bilirubin Indirect Bilirubin AST ALT Alkaline Phosphatase Ammonia Troponin I B-Natriuretic Peptide Total Protein Albumin Globulin Albumin/Globulin Ratio Radiology Results: Patient Name: ELMA HALLMAN Medical Record#: [id number] Ordering Physician: Cecilio Soto MD Acct.#: [id number] : 1935 Age: 81 Sex: M Location: EMERGENCY DEPARTMENT Exam Date: 11/03/161721 ADM Status: REG ER Order Information: CHEST AP PORTABLE Accession Number: [id number] CPT: 29089 INDICATION: Altered mental status. COMPARISON: Comparison is made with a prior chest x-ray study from September 14, 2016. TECHNIQUE: A portable view of the chest was obtained. FINDINGS: There is a dual-chamber transvenous cardiac pacemaker present. The heart is within normal limits in size. The lungs are hyperinflated and clear. No pleural effusion is seen. IMPRESSION: NO EVIDENCE FOR ACUTE DISEASE. <Electronically signed by Temo Chandler MD in OV> 11/03/161745 Dictated By: Temo Chandler MD Dictated Date/Time: 11/03/161745 Transcribed Date/Time: 11/03/161743 Copy to: CC:Kishan Raymond MD; Cecilio Soto MD Imaging - [facility] Imaging - [facility] Imaging - [facility] [address] [place] [id number] [address] [address] ph ([phone]) ph ([phone]) ph [phone]) EKG Report: SR 62 UT 156 QTc 443 QRS axis -67 Left anterior fascicular block. No ST-T changes Assessment - Problem List Assessment: Patient Problems Acute dyspnea (Acute) Anxiety disorder (Acute) Chest pressure (Acute) Depression (Acute) History of orthopnea (Acute) Suicide and self-inflicted injury (Acute) Anorexia (Chronic) Atrial fibrillation (Chronic) BPH (benign prostatic hypertrophy) (Chronic) Glaucoma (Chronic) Irritable bowel disease (Chronic) Pacemaker (Chronic) Weight loss (Chronic) Plan: Depression (Acute)Anxiety disorder (Acute) Suicide and self-inflicted injury ( Acute) He has demonstrated a clear act intending suicide. He is depressed and has cognitive distortions - misrepresenting/misconstruing discussions he has had with providers. He needs to restart anti-depressant treatment (he previously received antidepressants for somatic symptoms - including irritable bowel syndrome). I agree with the psychiatric opinion - he may need a period of time in the Behavioral Health Unit whilst waiting for the antidepressants to start working as he remains at high risk. Acute dyspnea (Acute)History of orthopnea (Acute) Chest pressure (Acute) These symptoms followed a recent hospitalization/subacute rehabilitation at [facility]. He has a slight increase in troponin I levels - this likely due to his acute blood loss. He is having testing to rule out CHF/ischemic heart disease as a cause of his symptoms today. I will also discuss his case with Dr. 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 If these work ups rule out physical cause for his symptoms I will work simultaneously to treat psychiatric problems while continuing to evaluate any pathophysiolgical basis for his symptoms Anorexia (Chronic)/Weight loss (Chronic) This precedes his pneumonia and the underlying cause is unclear. His weight in my office was 130 lbs on 10/26/2015. There may be an underlying occult physical cause of his weight loss. However , it could also be due to a vegetative symptom of depression. Atrial fibrillation (Chronic) no evidence for this at present - has declined anticoagulation BPH (benign prostatic hypertrophy) (Chronic) secondary diagnosis Glaucoma (Chronic) secondary diagnosis Irritable bowel disease (Chronic) This has not returned since his pneumonia Pacemaker (Chronic) per Dr. Quezada Phone call with Aurea, his . * I discussed his presentation with Aurea. She has worked for 2 years on a suicide crisis line and is familiar with the manifestations of suicidal behavior * She is aware of his cognitive distortions - his story has changed re: Dr. Lara's consultation since his visit and become more bleak * She has taken his triazolam away as he was taking too many * She acknowledges he is depressed and that many of the physical issues may be somatic manifestations of depression * She wants me to reaffirm to him that the last CXR at [facility] - "something was found on the CXR". She has corrected him 4 times - he believes something was there. This a persistent delusion.
[2016-11-05] MEDS: CMCS: Brimonidine P 0.1%(NF) 1 DROP BTL BOTH EYES SCH ×2 (09:05→19:17)
[2016-11-05] MEDS: CMCS: Dorzolamide 2% OPTH (NF) 10 ML BTL BOTH EYES SCH ×2 (09:05→19:27)
--- NOTE | 2016-11-05 11:16 | RAD ---
Edited for charges. Indication: Abnormal troponin. Myocardial perfusion scan was performed utilizing 1 day protocol. 10.4 mCi of technetium 99m tetrofosmin was injected for the rest portion of the study. 25.7 mCi of technetium 99m tetrofosmin was injected for the stress portion of study. The patient could not tolerate a CT scan and no attenuation correction couldn't be performed. There is photopenia in the inferior wall which partially reverses on the rest images. The possibility of reversible change especially near the base of the heart should BE considered. The ejection fraction at stress is 71%. Evaluation of wall motion demonstrates no focal wall motion abnormality. IMPRESSION: Moderate-sized reversible change inferior wall near the base of the heart. ASSESSMENT: Intermediate risk Based on imaging criteria from ACC/AHA 2002 Guideline Update for the Management of Patients With Chronic Stable Angina Table 23. Noninvasive Risk Stratification. MTDD
--- NOTE | 2016-11-05 12:35 | ECHO ---
Patient: ELMA HALLMAN [facility] Rec#: [id number] : 1935 Date: 11/05/2016 Age: 81y Height: 167 cm / 65.7 in Weight: 56 kg / 123.4 lbs Sex: M BSA: 1.62 Room#: 434 Admit Date#: 11/04/2016 Type: Inpatient Referring: Kody Quezada DO Reading: Dominic Buchanan MD Radio Adjuster: Zach Walter RDCS CC: Kishan Raymond MD Transthoracic Echocardiogram Indication: Atypical chest pain BP: 105/53 HR: 69 Rhythm: Paced Findings History: Pacemaker Technical Comments: The study quality is good. Completed 1200 Left Ventricle: The left ventricular chamber size is normal. Mild concentric left ventricular hypertrophy is observed. Global left ventricular wall motion and contractility are within normal limits. There is normal left ventricular systolic function. The estimated ejection fraction is 55-60%. Abnormal left ventricular diastolic filling is observed, consistent with impaired relaxation. Left Atrium: The left atrium is mild to moderately dilated. Right Ventricle: The right ventricular cavity size is normal. The right ventricular global systolic function is normal. A pacemaker wire is visualized in the right ventricle. Right Atrium: The right atrium is slightly dilated. Aortic Valve: The aortic valve is trileaflet. The aortic valve leaflets are mildly thickened. There is mild aortic regurgitation. Mitral Valve: The mitral valve leaflets appear normal. There is mitral annular calcification. There is a trace of mitral regurgitation. There is no evidence of mitral stenosis. Tricuspid Valve: The tricuspid valve appears normal in structure and function. There is no evidence of tricuspid valve regurgitation. Pulmonic Valve: The pulmonic valve appears normal. There is no evidence of pulmonic regurgitation. There is no pulmonic stenosis. Pericardium: There is no pericardial effusion. A pericardial fat pad is visualized. Aorta: The ascending aorta is not well visualized. There is no dilatation of the aortic arch. There is no dilation of the aortic root. Pulmonary Artery: The main pulmonary artery appears normal. Venous: The inferior vena cava appears normal in size. There is a greater than 50% respiratory change in the inferior vena cava dimension. Summary: There are no significant changes when compared to the previous study done on 02/01/16 Conclusions Mild concentric left ventricular hypertrophy is observed. Global left ventricular wall motion and contractility are within normal limits. There is normal left ventricular systolic function. The estimated ejection fraction is 55-60%. The right ventricular global systolic function is normal. The aortic valve leaflets are mildly thickened. There is mild aortic regurgitation. There is a trace of mitral regurgitation. The tricuspid valve appears normal in structure and function. There is no evidence of tricuspid valve regurgitation. There is no pericardial effusion. There are no significant changes when compared to the previous study done on 02/01/16 Measurements Name Value Normal Range RVIDd (AP) 2D 2.2 cm (0.9 - 2.6) RVDdMajor (2D) 2.6 cm (2.2 - 4.4) RAd ISD 4CH 5.5 cm (3.4 - 4.9) RA (A4C)W 3.3 cm (2.9 - 4.6) IVSd (2D) 1.3 cm (0.6 - 1) LVPWd (2D) 0.9 cm (0.6 - 1) LVIDd (2D) 4.8 cm (3.6 - 5.4) LVIDs (2D) 2.6 cm - LV FS (2D) 46 % (25 - 45) Aortic Annulus 1.9 cm (1.4 - 2.6) Ao root diameter (2D) 2.7 cm (2.1 - 3.5) Aortic arch 2.7 cm (1.8 - 3.4) LA dimension (AP) 2D 3.9 cm (2.3 - 3.8) LAd ISD 4CH 4.3 cm (2.9 - 5.3) LA ISD 4CH W 3.4 cm (2.5 - 4.5) Name Value Normal Range LA ESV SP 4CH (A/L) 70 ml - LA ESV SP 2CH (A/L) 56 ml - LA ESV BP (A/L) 69 ml - LA ESV BP (A/L) index 42.39 ml/m2 - LA ESV SP 4CH (MOD) 63 ml - LA ESV SP 2CH (MOD) 52 ml - Name Value Normal Range MV E-wave Vmax 0.54 m/sec - MV deceleration time 254 msec - MV A-wave Vmax 0.91 m/sec - MV E:A ratio 0.59 ratio - LV septal e' Vmax 0.04 m/sec - LV lateral e' Vmax 0.07 m/sec - LV E:e' septal ratio 13.5 ratio - LV E:e' lateral ratio 7.7 ratio - Name Value Normal Range LVOT Vmax 0.9 m/sec - AR PHT 735 msec - Name Value Normal Range IVC diameter 1.19 cm - Name Value Normal Range PV Vmax 0.6 m/sec -
[2016-11-05] MEDS ORDERED: Regadenoson* 0.4 MG/5 ML SYRINGE ONE (13:24)
--- NOTE | 2016-11-05 17:32 | CONS ---
CONSULTATION REPORT: DATE OF CONSULT/DICTATION: 11/05/16 ATTENDING PHYSICIAN: Dr. Kishan Raymond. CONSULTING PHYSICIAN: Dr. Nahum Childers. REASON FOR CONSULT: Suicide attempt. PSYCHIATRIC HISTORY: The patient is an 81-year-old white male with a history of anxiety who was admitted to the medical service on November 03 following an intentional suicide attempt by self-inflicted knife wounds to his bilateral wrists. Apparently, the patient's found him in their bedroom and discovered blood throughout their room as well as their bathroom at which time she immediately contacted emergency services. The patient was medically stabilized in the emergency room and then transferred upstairs for further treatment. I spoke with the patient in his room where he has a one-to-one aide. I also spoke with Dr. Kishan Raymond who in addition to being the current attending of record has also been the patient's primary care provider in the community for over 20 years. As I meet with the patient, he is resting apparently comfortably in his bed although he does note that it is intolerable for him to lie flat because of a recent respiratory condition. What he is telling me is that he was hospitalized at this facility for pneumonia in early September 2016 and from there briefly went to a rehab facility before returning home. He complains of a constant pressure in his chest which prevents him from lying flat or catching his breath if he is standing or ambulating. The patient indicates that he has met with both Pulmonology as well as Cardiology and feels that his condition is not likely to improve. He is quoted as saying "If you have something that is wrecking your life and there is nothing that you can do to improve it, suicide is a rational action." The patient does show some cognitive distortions in that he attributes his bleak medical situation to prognoses that he has received from multiple clinicians including during this hospitalization. More specifically, he is stating that his cardiologists and his attending here at the hospital have told him that his condition is unlikely to get better. I understand from Dr. Raymond's collateral report that this is not necessarily the case as medical diagnostic workup is still ongoing at this point. At any rate, the patient is denying current suicidal plan although he has passive suicidal ideations in the sense that he would prefer to no longer be alive. When I asked him if he has any intention of harming himself, he says "No, I have already made a mess out of that and I would never do it again." When asked about his psychiatric history, he indicates that he noticed last summer when he turned 81 that his health started deteriorating faster than it had up until that point. He indicates that he was already feeling somewhat depressed because of this, but after his episode of pneumonia in September, his feelings of pessimisms have increased. In addition to depressed mood, he also endorses difficulty sleeping despite his use of temazepam. He also complains of anhedonia, guilt, decreased energy, poor concentration, lack of appetite, psychomotor retardation, and feelings that his situation would not improve and that he would prefer to be . PAST PSYCHIATRIC HISTORY: The patient denies every having seen a psychiatrist in the past, but this is contradicted by Dr. Raymond who indicates that the patient used to see the local psychiatrist, Dr. Hinton. Apparently, he was treated for long time with amitriptyline, but had tolerability issues with this. He was also tried on other antidepressants which Dr. Raymond is going to fax to my office. Unfortunately, the patient cannot recall what antidepressants he has used in the past. The patient denies any past history of suicidality and he has no history of psychiatric hospitalization. He denies any past history of abuse or neglect while growing up and has no history of traumatic brain injury. SUBSTANCE ABUSE HISTORY: Significant for social alcohol drinking until approximately 20 years ago when he was asked by his doctor to stop because of irritable bowel syndrome. He has no history of tobacco abuse and has never used illicit drugs. PAST MEDICAL HISTORY: Significant for arrhythmias. He has had a pacemaker inserted in June 2016. He has also suffered from irritable bowel syndrome , recent pneumonia in September 2016, bilateral knee surgeries, benign prostatic hypertrophy, glaucoma, and paroxysmal atrial fibrillation. CURRENT MEDICATIONS: Here in the hospital includes: 1. Triazolam 0.5 mg at bedtime for sleep. 2. Brimonidine 0.1% one drop bilaterally for glaucoma. 3. Dorzolamide 2% ophthalmic solution 1 drop bilaterally b.i.d. 4. Proscar 5 mg p.o. daily. 5. Alfuzosin ER 10 mg p.o. daily. 6. Xalatan 0.005% one drop both eyes at bedtime. ALLERGIES: He has no known drug allergies. FAMILY HISTORY: Negative for psychiatric disorders and he indicates that he is unaware of any family members having completed suicide. SOCIAL HISTORY: The patient is from [facility]. His father apparently when he was 7 years old. The patient went to college briefly at [employer] and then returned to [place] to finish his bachelor's degree in commerce at [employer]. 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 He has been since 1966. This is his only marriage. He does have one son, age 40, and 2 grandchildren. He has no history of service and no legal history. He self-identifies as a Spiritism. MENTAL STATUS EXAM: The patient is an aging white male looking somewhat frail and underweight who is dressed in a set of patient undergarments, who is covered by a blanket sitting up in bed. He has poor eye contact and his eyes are closed for much of our interview although sometimes he will face me to respond to questions. Speech is slow, but quite articulate. He has an excellent vocabulary. It is fairly easy to establish a rapport with him and he is cooperative in general with the examination. Mood is depressed with a constricted affect. Thought process is linear and goal directed. Thought content is mostly somatic with complaints of tightness in his chest and dyspnea. He does endorse passive suicidality, but denies any sort of plan to further harm himself rationalizing that he has tried this once and is unlikely to try it again. He does admit to guilt about how his discovered him. He denies homicidal ideations. He denies auditory or visual hallucinations. Insight and judgment appears to be limited given his refusal of inpatient psychiatric treatment at this time. Cognitively, he is awake and alert with what is obviously an above average intellect. DIAGNOSES: [place] I: Major depressive disorder, single episode, severe without psychotic features. Unspecified anxiety disorder by history. [place] II: Deferred. [place] III: Paroxysmal atrial fibrillation, benign prostatic hypertrophy, glaucoma, irritable bowel syndrome, recent history of pneumonia, pacemaker insertion in June 2016, bilateral knee surgeries 10 years ago. [place] IV: Moderate primary support stressors. [place] V: At this time is 29. ASSESSMENT: The patient is an 81-year-old white male with a remote history of anxiety problems who was brought to the hospital after attempting suicide with bilateral self-inflicted lacerations of his wrist. The Psychiatry team has been asked to see the patient in order to make treatment recommendations. We do feel that resumption of antidepressant therapy would be helpful given his depressed mood and multiple neurovegetative symptoms as well as his cognitive distortion. He is not allowing us to contact his at this point for further collateral information stating that he does not want her to suffer anymore stress due to this episode. He is agreeable with antidepressant treatment; however, he is steadfastly refusing voluntary psychiatric admission. I do not see him as an acute risk given the fact that his active suicidality seems to have abated with this failed attempt; however, he does continue to have passive suicidality as well as very severe melancholic depression. RECOMMENDATIONS TO PRIMARY TEAM: At this time, we are recommending initiation of antidepressant therapy with mirtazapine. We will start at a low dose of 7.5 mg q.h.s. and can titrate this as tolerated. I do believe that he would benefit from psychiatric hospitalization; however, he is refusing this at this time. I will discuss the case again with Dr. Raymond and see if the primary team is comfortable placing the patient on a 2-physician consent and having him transferred involuntarily. I will say that the psychiatric unit is currently full and there are other admissions awaiting available beds from the emergency room. This is a fluid situation however, and Psychiatry will continue to follow the patient closely until further treatment decisions can be made. If any questions arise, this clinician is available at the following pager number: [phone]. [id number]/[facility] #: [id number] [facility]OS[facility]ITALYonas
[2016-11-05] MEDS: Finasteride TAB* 5 MG PO SCH (17:49)
[2016-11-05] MEDS: CMCS: Alfuzosin ER (NF) 10 MG TAB.ER PO SCH (17:50)
[2016-11-05] MEDS: Latanoprost 0.005%* 2.5 ml BTL BOTH EYES SCH (19:21)
[2016-11-05] MEDS: Triazolam TAB* 0.25 MG PO SCH (21:38)
[2016-11-05] MEDS: Mirtazapine TAB* 15 MG PO SCH (21:39)
[2016-11-06 05:38] LABS: Hematocrit 29 % (42-52); Hemoglobin 10.1 g/dl (14.0-18.0); Mean Corpuscular HGB Conc 34 g/dl (31-36); Mean Corpuscular Hemoglobin 31 pg (27-31); Mean Corpuscular Volume 91 fL (80-94); Mean Platelet Volume 7 um3 (7.4-10.4); Red Blood Count 3.22 10^6/ul (4.0-5.4); Red Cell Distribution Width 16 % (10.5-15); White Blood Count 8.6 10^3/ul (3.5-10.8)
[2016-11-06 05:54] LABS: C Reactive Protein 10.24 mg/L (< 5.00); Calcium 8.5 mg/dL (8.6-10.3); Direct Bilirubin 0.3 mg/dL (0.03-0.18); EGFR African American 126.3 (>60); EGFR Non-African American 98.2 (>60); Globulin 2.1 g/dL (2-4); Indirect Bilirubin 1.4 mg/dL (0.3-1.0); Potassium 3.8 mmol/L (3.5-5.0); Total Bilirubin 1.7 mg/dL (0.2-1.0); Total Protein 5.1 g/dL (6.4-8.9)
--- NOTE | 2016-11-06 08:51 | PN ---
Subjective - Subjective Reason for Note: Progress Note History: He continues to have the sensation of chest pressure - especially when lying flat. He can sleep if the head of the bed is elevated. He continues to state that he would rather have and would not commit at this point to living - i.e. he remains a suicide risk. He is otherwise feeling better. He has no light-headedness or palpitations. He has had no significant dysrhythmia on the telemetry. He states he slept well and tolerated the remeron/triazolam. Active Problems: Active Problems Acute dyspnea (Acute) R06.00 Anxiety disorder (Acute) F41.9 Chest pressure (Acute) R07.89 Depression (Acute) F32.9 History of orthopnea (Acute) Z87.898 Suicide and self-inflicted injury (Acute) X83.8XXA Anorexia (Chronic) R63.0 Atrial fibrillation (Chronic) I48.91 BPH (benign prostatic hypertrophy) (Chronic) N40.0 Glaucoma (Chronic) H40.9 Irritable bowel disease (Chronic) Pacemaker (Chronic) Z95.0 Weight loss (Chronic) Current Medications: Current Medications Acetaminophen (Tylenol Tab*) 650 mg PO Q4H PRN PRN Reason: FEVER/PAIN Last Admin: 11/04/16 03:13 Dose: 325 mg Alfuzosin HCl (Uroxatral (Nf)) 10 mg PO 1800 [facility] Last Admin: 11/05/16 17:50 Dose: 10 mg Brimonidine Tartrate (Alphagan P 0.1% (Nf)) 1 drop BOTH EYES BID [facility] Last Admin: 11/05/16 19:17 Dose: 1 drop Dorzolamide HCl (Trusopt 2% Opth (Nf)) 1 drop BOTH EYES BID [facility] PRN Reason: Protocol Last Admin: 11/05/16 19:27 Dose: 1 drop Finasteride (Proscar Tab*) 5 mg PO 1800 [facility] Last Admin: 11/05/16 17:49 Dose: 5 mg Latanoprost (Xalatan 0.005%*) 1 drop BOTH EYES BEDTIME [facility] Last Admin: 11/05/16 19:21 Dose: 1 drop Mirtazapine (Remeron Tab*) 7.5 mg PO BEDTIME [facility] Last Admin: 11/05/16 21:39 Dose: 7.5 mg Triazolam (Halcion Tab*) 0.5 mg PO BEDTIME [facility] Last Admin: 11/05/16 21:38 Dose: 0.5 mg - Review of Systems Pulmonary: Positive: Respiratory Distress, Shortness of Breath Negative: Cough, Sputum, Hemoptysis, COPD Cardiology: Positive: Chest Pain, Shortness of Breath Negative: Palpitations Gastroenterology: Negative: Abdominal Pain, Nausea, Change in Bowel Habits Genital - Urinary: Positive: Normal Home Medications: Home Medications Medication Instructions Recorded Confirmed Type Dorzolamide 2% OPTH (NF) [Trusopt 1 drop BOTH EYES BID 01/19/16 11/03/16 History 2% OPTH (NF)] Finasteride [Proscar] 5 mg PO DAILY 01/19/16 11/03/16 History Latanoprost 0.005% OPTH (NF) 1 drop BOTH EARS BEDTIME 01/19/16 11/03/16 History [Xalatan 0.005% OPTH*] Alfuzosin HCl [Alfuzosin HCl ER] 10 mg PO QPM 06/25/16 11/03/16 History Brimonidine P 0.1%(NF) [Alphagan P 1 drop BOTH EYES BID 06/25/16 11/03/16 History 0.1% (NF)] Triazolam TAB* [Halcion TAB*] 1 - 2 tab PO BEDTIME 06/25/16 11/03/16 History Acetaminophen TAB* [Tylenol TAB*] 500 mg PO BEDTIME 11/03/16 11/03/16 History Allergies: Allergies Allergy/AdvReac Type Severity Reaction Status Date / Time No Known Allergies Allergy Verified 01/19/16 19:24 Objective - Vital Signs Vital Signs: Vital Signs 11/05/16 11/05/16 11/05/16 08:45 08:50 09:00 Temperature Pulse Rate Respiratory Rate Blood Pressure 153/77 172/100 140/90 (mmHg) O2 Sat by Pulse Oximetry 11/05/16 11/05/16 11/05/16 16:06 16:09 18:43 Temperature 98.4 F Pulse Rate 93 73 Respiratory 16 16 Rate Blood Pressure 109/38 (mmHg) O2 Sat by Pulse 99 Oximetry 11/05/16 11/05/16 11/05/16 20:03 23:44 23:53 Temperature 97.9 F 98.3 F Pulse Rate 64 74 92 Respiratory 16 16 Rate Blood Pressure 96/39 87/49 116/54 (mmHg) O2 Sat by Pulse 96 97 Oximetry 11/06/16 04:01 Temperature 98.6 F Pulse Rate 59 Respiratory 16 Rate Blood Pressure 99/48 (mmHg) O2 Sat by Pulse 99 Oximetry - Intake and Output Intake and Output: Intake & Output 11/03/16 11/04/16 11/05/16 11/06/16 11:59 11:59 11:59 11:59 Intake Total 395 283 5427 Output Total 0 0 Balance 088 201 7595 Weight 124 lb Intake: IVPB 60 MG 60 Oral 854 155 5098 Output: Urine 0 0 Other: Estimated Void Small Medium Small # Bowel Movements 1 0 0 Estimated Stool Amount Small Medium # Voids 4 3 1 ADLs: Meal Record Start: 11/03/16 22: 02 Freq: DAILY@0900,1400,1800 Status: Active Document 11/04/16 09:00 [id number] (Rec: 11/04/16 12:37 [id number] TELE-M10) Document 11/04/16 12:38 [id number] (Rec: 11/04/16 12:38 [id number] TELE-M10) Document 11/04/16 18:00 [id number] (Rec: 11/04/16 18:46 [id number] TELE-C01) Document 11/05/16 09:00 [id number] (Rec: 11/05/16 12:09 [id number] TELE-M10) Document 11/05/16 14:00 [id number] (Rec: 11/05/16 14:51 [id number] TELE-M10) Document 11/05/16 17:52 [id number] (Rec: 11/05/16 17:53 [id number] TELE-M10) Intake and Output Start: 11/03/16 22: 02 Freq: DAILY@0600,1400,2200 Status: Active Document 11/04/16 05:40 [id number] (Rec: 11/04/16 05:42 [id number] TELE-M10) Document 11/04/16 12:40 [id number] (Rec: 11/04/16 12:40 [id number] TELE-M10) Document 11/04/16 21:44 [id number] (Rec: 11/04/16 21:44 [id number] TELE-M10) Document 11/05/16 05:36 [id number] (Rec: 11/05/16 05:37 [id number] TELE-C32) Document 11/05/16 14:00 [id number] (Rec: 11/05/16 14:51 [id number] TELE-M10) Document 11/05/16 22:00 [id number] (Rec: 11/05/16 22:43 [id number] TELE-M10) Document 11/06/16 06:00 [id number] (Rec: 11/06/16 06:26 [id number] TELE-C01) - Physical Exam General: No Cyanosis, Yes Anemia, No Jaundice, No Lymphadenopathy, No Clubbing Lungs and Chest: Yes: Chest Expansion Full, Chest Expansion Symetrica, Percussion Note Resonant, Vessicular Breath Sounds. No: Crackles, Wheezes Heart Rate and Rhythm: Regular JVP: Not Elevated Additional Cardiovascular: Yes: Normal Heart Sounds. No: Heart Murmur, Pedal Edema Abdominal Exam: Yes: Soft, Bowel Sounds Present. No: Distention, Abdominal Mass , Abdominal Tenderness - Extremities Cranial Nerves II-XII Intact: Yes Limbs: Normal Power, Normal Tone, Normal Gait - He walked the length of the lino - Neuro Orientation: A/O x3 Psychiatric: Depressed Speech: Normal Results - Results Lab Results: Laboratory Results - last 24 hr 11/06/16 11/06/16 05:25 05:25 WBC 8.6 RBC 3.22 L Hgb 10.1 L Hct 29 L MCV 91 MCH 31 MCHC 34 RDW 16 H Plt Count 141 L MPV 7 L Neut % (Auto) 73.4 Lymph % (Auto) 17.8 L Sawyer % (Auto) 7.0 Eos % (Auto) 1.0 Baso % (Auto) 0.8 Absolute Neuts (auto) 6.3 Absolute Lymphs (auto) 1.5 Absolute Monos (auto) 0.6 Absolute Eos (auto) 0.1 Absolute Basos (auto) 0.1 Absolute Nucleated RBC 0 Nucleated RBC % 0 Sodium 137 Potassium 3.8 Chloride 108 Carbon Dioxide 24 Anion Gap 5 BUN 19 Creatinine 0.76 Est GFR ( Amer) 126.3 Est GFR (Non-Af Amer) 98.2 BUN/Creatinine Ratio 25.0 H Glucose 90 Calcium 8.5 L Total Bilirubin 1.70 H Direct Bilirubin 0.30 H Indirect Bilirubin 1.4 H AST 16 ALT 9 Alkaline Phosphatase 36 C-Reactive Protein 10.24 H Total Protein 5.1 L Albumin 3.0 L Globulin 2.1 Albumin/Globulin Ratio 1.4 Radiology Results: Patient Name: ELMA HALLMAN Medical Record#: [id number] Ordering Physician: Kody Quezada DO Acct.#: [id number] : 1935 Age: 81 Sex: M Location: [address] [place] [address] MEDICAL/TELEMETRY Exam Date: 11/05/16 1607 ADM Status: ADM IN Order Information: NUCLEAR CARDIAC STRESS TEST Accession Number: [id number] CPT: 87861 Indication: Abnormal troponin. Myocardial perfusion scan was performed utilizing 1 day protocol. 10.4 mCi of technetium 99m tetrofosmin was injected for the rest portion of the study. 25.7 mCi of technetium 99m tetrofosmin was injected for the stress portion of study. The patient could not tolerate a CT scan and no attenuation correction couldn't be performed. There is photopenia in the inferior wall which partially reverses on the rest images. The possibility of reversible change especially near the base of the heart should BE considered. The ejection fraction at stress is 71%. Evaluation of wall motion demonstrates no focal wall motion abnormality. IMPRESSION: Moderate-sized reversible change inferior wall near the base of the heart. ASSESSMENT: Intermediate risk Based on imaging criteria from ACC/AHA 2002 Guideline Update for the Management of Patients With Chronic Stable Angina Table 23. Noninvasive Risk Stratification. <Electronically signed by Cherelle Sy MD in OV> 11/05/16 1112 Dictated By: Cherelle Sy MD Dictated Date/Time: 11/05/16 1112 Transcribed Date/Time: 11/05/16 1101 Copy to: CC:Kishan Raymond MD; Kody Quezada DO; Keaton Estrada MD; Binh Giles MD; Evelio Fields MD Imaging - [facility] Imaging - [facility] [id number] [place] [address] [place] [address] ph ([phone]) ph ([phone]) ph ([phone]) 1 of 1 Other Results/Reports: The right atrium is slightly dilated. Aortic Valve: The aortic valve is trileaflet. The aortic valve leaflets are mildly thickened. There is mild aortic regurgitation. Mitral Valve: The mitral valve leaflets appear normal. There is mitral annular calcification. There is a trace of mitral regurgitation. There is no evidence of mitral stenosis. Tricuspid Valve: The tricuspid valve appears normal in structure and function. There is no evidence of tricuspid valve regurgitation. Pulmonic Valve: The pulmonic valve appears normal. There is no evidence of pulmonic regurgitation. There is no pulmonic stenosis. Pericardium: There is no pericardial effusion. A pericardial fat pad is visualized. Aorta: The ascending aorta is not well visualized. There is no dilatation of the aortic arch. There is no dilation of the aortic root. Pulmonary Artery: The main pulmonary artery appears normal. Venous: The inferior vena cava appears normal in size. There is a greater than 50% respiratory change in the inferior vena cava dimension. Summary: There are no significant changes when compared to the previous study done on 02/01/16 Conclusions Mild concentric left ventricular hypertrophy is observed. Global left ventricular wall motion and contractility are within normal limits. There is normal left ventricular systolic function. The estimated ejection fraction is 55-60%. The right ventricular global systolic function is normal. The aortic valve leaflets are mildly thickened. There is mild aortic regurgitation. There is a trace of mitral regurgitation. The tricuspid valve appears normal in structure and function. There is no evidence of tricuspid valve regurgitation. There is no pericardial effusion. Assessment - Problem List Assessment: Patient Problems Acute dyspnea (Acute) Anxiety disorder (Acute) Chest pressure (Acute) Depression (Acute) History of orthopnea (Acute) Suicide and self-inflicted injury (Acute) Anorexia (Chronic) Atrial fibrillation (Chronic) BPH (benign prostatic hypertrophy) (Chronic) Glaucoma (Chronic) Irritable bowel disease (Chronic) Pacemaker (Chronic) Weight loss (Chronic) Plan: Suicide and self-inflicted injury (Acute) His lab work is recovering - he remains slightly anemic. Otherwise, he is hemodynamically stable Acute dyspnea (Acute)Chest pressure (Acute)History of orthopnea (Acute) Chest pressure: This symptom is ongoing. He shows no signs of respiratory distress, has a normal chest examination. I discussed his NM stress test and echocardiogram with cardiology - they think that his is at low risk of having any significant coronary artery disease. The abnormalities on the NM test are most likely attenuation artifact. I spoke with his sales service technician. Clinically, she felt there was nothing clearly found. She recommended a CT chest to ensure the pneumonia had completely resolved and there was no occult neoplasm. I will order this. The lung function tests are not essential at this point and are to show the patient he has a normal lung capacity. I will order spirometry, but no other testing as he has no evidence of oxygen desaturation or thus far of any structural lung disease Anxiety disorder (Acute)Depression (Acute) He admits to being depressed, again attributes this to the prospect of having to live with this chest pressure/ dyspnea. I explained to him in detail the notion that his depression is misinterpreting physiological signals from his chest wall and that this may be a functional and not a structural problem. He was willing to entertain this idea. I explained that the mirtazepine prescribed by Dr. Childers has multiple positive attributes: * antidepressant * anxiolytic * helps with sleep (he has difficulty sleeping) * appetite stimulant He strongly voiced reservation about Dr. Childers. He told me he would follow my instructions 100%. I explained that he would need psychological rehabilitation , just like he required a period of SNF for rehab after his pneumonia. He accepts this. I also told him that the [facility] works as a team and that despite his reservations about Dr. Childers, he would have excellent care. In addition, I explained that although his first impressions may not have been ideal, Dr. Childers's consultation and suggestions were excellent and that I would be working alongside this therapeutic plan. He agrees that he remains suicidal and at risk. In addition, he recognizes that at present he would be a burden at home with his worrying potential suicidal behavior. Weight loss (Chronic)Anorexia (Chronic) Again, this may be due to an underlying occult process. However, it is more likely looking in context this is a vegetative symptoms of depression. I explained this to the patient and also the benefits of mirtazepine with regards to this symptom. We have repeatedly performed investigations to look for an occult process (malignancy/ infection) and nothing has shown up. Atrial fibrillation (Chronic) inactive BPH (benign prostatic hypertrophy) (Chronic) secondary diagnosis Glaucoma (Chronic) secondary diagnosis Irritable bowel disease (Chronic) inactive at present Pacemaker (Chronic) functional I explained the above to the patient. He was disappointed that nothing wrong with his heart. He continues to express hopelessness with his symptoms and acknowledges he is at risk for further suicide attempts. He would like the investigations Dr. Lara ordered and we will go ahead with this. I think he will be able to go to the [facility] from a medical point of view when they are ready for him. I don't think this will need to be an involuntary admission, but if it comes to that I am convinced he is a danger to himself and I am the second physician signature. I spoke on the phone at length to his and explained the above. She agrees with the plan and understands that Elma is not rational at present because of his severe depression.
[2016-11-06] MEDS: CMCS: Brimonidine P 0.1%(NF) 1 DROP BTL BOTH EYES SCH ×2 (10:02→19:29)
[2016-11-06] MEDS: CMCS: Dorzolamide 2% OPTH (NF) 10 ML BTL BOTH EYES SCH ×2 (10:02→19:26)
--- NOTE | 2016-11-06 13:08 | RAD ---
Indication: Dyspnea, chest pain. CT of the chest performed without IV contrast. Coronal and sagittal reconstructed images were obtained. Inferior thyroid lobes are unremarkable. No mediastinal or hilar adenopathy is noted. The heart demonstrates no pericardial effusion. Pacemaker leads are in place. Coronary artery calcifications are noted. The trachea and major bronchi appear patent. The lung arita demonstrate no evidence of alveolar consolidation. No pleural fluid is identified. No new there is a tiny nodule in the right upper lobe anteriorly measuring 4 mm of uncertain clinical significance. Additional 5 mm pleural-based nodule is noted in the medial right lower lobe. No alveolar consolidation is noted. IMPRESSION: Right upper lobe nodule measuring 4 mm unchanged from previous exam. Right lower lobe nodule posterior medially measuring 5 mm. In a low-risk patient follow-up exam in 12 months is suggested. In a high risk patient follow-up exam could be done in 6 months. No evidence of alveolar consolidation or masses are identified.
--- NOTE | 2016-11-06 13:35 | CONSULT ---
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 Today the patient reports that he is less hopeless about his somatic situation in that his primary doctor, Dr. Raymond, feels his dyspnea is something that could improve with time, resulting in less discomfort and better functioning. Despite this, he still feels depressed and somewhat pessimistic about the future. He continues to decline permission for me to speak with his spouse, Aurea, for fear that the interaction might upset her and cause further stress. He did tolerate initiation of mirtazapine 7.5mg PO qhs well yesterday, stating that it helped him sleep. He disagrees with my assertion that transfer to the [facility] would be beneficial to him, stating "What's done is done. It was unsuccesful. I'm not going to do it again so everyone can stop worrying about that." He denies active SI but admits to, essentially, passive SI in that he wishes his attempt at killing himself had been successful. O: aging white male lying in bed with his head elevated. Patient is depressed with slow speech and constricted affect. Endorses passive SI. A/P: MDD, severe without psychotic features: Recommend transfer to [facility] when male bed is available. Unit is currently full. Patient to continue mirtazapine 7.5mg PO qhs and we will titrate this to effective/well-tolerated dose. Patient is to be persuaded of merits of voluntary psychiatric admission tomorrow when he speaks with Dr. Raymond. If he refuses, my opinion is that involuntary transfer under a 2P would be justified based on the need for treatment planning and risk mitigation before he returns home.
[2016-11-06] MEDS: Finasteride TAB* 5 MG PO SCH (18:43)
[2016-11-06] MEDS: CMCS: Alfuzosin ER (NF) 10 MG TAB.ER PO SCH (18:43)
[2016-11-06] MEDS: Latanoprost 0.005%* 2.5 ml BTL BOTH EYES SCH (19:17)
[2016-11-06] MEDS: Mirtazapine TAB* 15 MG PO SCH (21:35)
[2016-11-06] MEDS: Triazolam TAB* 0.25 MG PO SCH (21:35)
[2016-11-07] MEDS: Acetaminophen TAB* 325 MG PO PRN (01:39)
--- NOTE | 2016-11-07 08:29 | PN ---
Subjective - Subjective Reason for Note: Progress Note History: He didn't sleep as well last night as the night before and can't account for this, but he is rested. He has no pain, some mild sweating at night - but not as severe as months ago. He has a feeling of pressure on his chest and also shortness of breath. His appetite is present and he has no digestive symptoms. He tells me that he won't try to kill himself again. He feels more hopeful and states that his symptoms are the same or possibly slightly improved. Active Problems: Active Problems Acute dyspnea (Acute) R06.00 Anxiety disorder (Acute) F41.9 Chest pressure (Acute) R07.89 Depression (Acute) F32.9 History of orthopnea (Acute) Z87.898 Suicide and self-inflicted injury (Acute) X83.8XXA Anorexia (Chronic) R63.0 Atrial fibrillation (Chronic) I48.91 BPH (benign prostatic hypertrophy) (Chronic) N40.0 Glaucoma (Chronic) H40.9 Irritable bowel disease (Chronic) Pacemaker (Chronic) Z95.0 Weight loss (Chronic) Current Medications: Current Medications Acetaminophen (Tylenol Tab*) 650 mg PO Q4H PRN PRN Reason: FEVER/PAIN Last Admin: 11/07/16 01:39 Dose: 650 mg Alfuzosin HCl (Uroxatral (Nf)) 10 mg PO 1800 ON LICENSE OF [facility] Last Admin: 11/06/16 18:43 Dose: 10 mg Brimonidine Tartrate (Alphagan P 0.1% (Nf)) 1 drop BOTH EYES BID ON LICENSE OF [facility] Last Admin: 11/06/16 19:29 Dose: 1 drop Dorzolamide HCl (Trusopt 2% Opth (Nf)) 1 drop BOTH EYES BID ON LICENSE OF [facility] PRN Reason: Protocol Last Admin: 11/06/16 19:26 Dose: 1 drop Finasteride (Proscar Tab*) 5 mg PO 1800 ON LICENSE OF [facility] Last Admin: 11/06/16 18:43 Dose: 5 mg Latanoprost (Xalatan 0.005%*) 1 drop BOTH EYES BEDTIME ON LICENSE OF [facility] Last Admin: 11/06/16 19:17 Dose: 1 drop Mirtazapine (Remeron Tab*) 7.5 mg PO BEDTIME ON LICENSE OF [facility] Last Admin: 11/06/16 21:35 Dose: 7.5 mg Triazolam (Halcion Tab*) 0.5 mg PO BEDTIME [facility] Last Admin: 11/06/16 21:35 Dose: 0.5 mg Home Medications: Home Medications Medication Instructions Recorded Confirmed Type Dorzolamide 2% OPTH (NF) [Trusopt 1 drop BOTH EYES BID 01/19/16 11/03/16 History 2% OPTH (NF)] Finasteride [Proscar] 5 mg PO DAILY 01/19/16 11/03/16 History Latanoprost 0.005% OPTH (NF) 1 drop BOTH EARS BEDTIME 01/19/16 11/03/16 History [Xalatan 0.005% OPTH*] Alfuzosin HCl [Alfuzosin HCl ER] 10 mg PO QPM 06/25/16 11/03/16 History Brimonidine P 0.1%(NF) [Alphagan P 1 drop BOTH EYES BID 06/25/16 11/03/16 History 0.1% (NF)] Triazolam TAB* [Halcion TAB*] 1 - 2 tab PO BEDTIME 06/25/16 11/03/16 History Acetaminophen TAB* [Tylenol TAB*] 500 mg PO BEDTIME 11/03/16 11/03/16 History Allergies: Allergies Allergy/AdvReac Type Severity Reaction Status Date / Time No Known Allergies Allergy Verified 01/19/16 19:24 Objective - Vital Signs Vital Signs: Vital Signs 11/06/16 11/06/16 11/06/16 08:39 16:36 19:07 Temperature 98.6 F 98.7 F Pulse Rate 77 68 Respiratory 18 18 18 Rate Blood Pressure 114/59 121/64 (mmHg) O2 Sat by Pulse 98 98 Oximetry 11/07/16 00:16 Temperature 98.3 F Pulse Rate 77 Respiratory 20 Rate Blood Pressure 123/73 (mmHg) O2 Sat by Pulse 94 Oximetry - Intake and Output Intake and Output: Intake & Output 11/04/16 11/05/16 11/06/16 11/07/16 11:59 11:59 11:59 11:59 Intake Total 796 162 4324 1050 Output Total 0 0 Balance 500 456 2777 1050 Weight 124 lb Intake: IVPB 60 MG 60 Oral 536 431 0494 1050 Output: Urine 0 0 Other: Estimated Void Small Medium Small Medium # Bowel Movements 1 0 1 0 Estimated Stool Amount Small Small Small # Voids 4 3 1 4 ADLs: Meal Record Start: 11/03/16 22: 02 Freq: DAILY@0900,1400,1800 Status: Active Document 11/04/16 09:00 [id number] (Rec: 11/04/16 12:37 [id number] TELE-M10) Document 11/04/16 12:38 [id number] (Rec: 11/04/16 12:38 [id number] TELE-M10) Document 11/04/16 18:00 [id number] (Rec: 11/04/16 18:46 [id number] TELE-C01) Document 11/05/16 09:00 [id number] (Rec: 11/05/16 12:09 [id number] TELE-M10) Document 11/05/16 14:00 [id number] (Rec: 11/05/16 14:51 [id number] TELE-M10) Document 11/05/16 17:52 [id number] (Rec: 11/05/16 17:53 [id number] TELE-M10) Document 11/06/16 09:05 [id number] (Rec: 11/06/16 09:05 [id number] TELE-M10) Document 11/06/16 12:55 [id number] (Rec: 11/06/16 12:56 [id number] TELE-M10) Document 11/06/16 18:00 [id number] (Rec: 11/06/16 19:30 [id number] TELE-L04) Intake and Output Start: 11/03/16 22: 02 Freq: DAILY@0600,1400,2200 Status: Active Document 11/04/16 05:40 [id number] (Rec: 11/04/16 05:42 [id number] TELE-M10) Document 11/04/16 12:40 [id number] (Rec: 11/04/16 12:40 [id number] TELE-M10) Document 11/04/16 21:44 [id number] (Rec: 11/04/16 21:44 [id number] TELE-M10) Document 11/05/16 05:36 ZWC1129 (Rec: 11/05/16 05:37 CMZ9655 TELE-C32) Document 11/05/16 14:00 [id number] (Rec: 11/05/16 14:51 [id number] TELE-M10) Document 11/05/16 22:00 [id number] (Rec: 11/05/16 22:43 RTU1786 TELE-M10) Document 11/06/16 06:00 [id number] (Rec: 11/06/16 06:26 GSF3341 TELE-C01) Document 11/06/16 12:55 [id number] (Rec: 11/06/16 12:56 [id number] TELE-M10) Document 11/07/16 06:00 [id number] (Rec: 11/07/16 06:[id number] [facility] [place]) - Physical Exam General: No Cyanosis, Yes Anemia, No Jaundice, No Lymphadenopathy, No Clubbing Lungs and Chest: Yes: Chest Expansion Full, Chest Expansion Symetrica, Percussion Note Resonant, Vessicular Breath Sounds. No: Crackles, Wheezes Heart Rate and Rhythm: Regular Additional Cardiovascular: Yes: Normal Heart Sounds. No: Heart Murmur, Pedal Edema Abdominal Exam: Yes: Soft, Bowel Sounds Present. No: Distention, Abdominal Mass , Abdominal Tenderness - Extremities Limbs: Normal Gait - Walked around the entire lino. - Neuro Orientation: A/O x3 Psychiatric: Depressed Speech: Normal Results - Results Radiology Results: Patient Name: ELMA HALLMAN Medical Record#: [id number] Ordering Physician: Kishan Raymond MD Acct.#: [id number] : 1935 Age: 81 Sex: M Location: [address] [place] [address] - MEDICAL/TELEMETRY Exam Date: 11/06/16919 ADM Status: ADM IN Order Information: CT CHEST W/O Accession Number: [id number] CPT: 53011 Indication: Dyspnea, chest pain. CT of the chest performed without IV contrast. Coronal and sagittal reconstructed images were obtained. Inferior thyroid lobes are unremarkable. No mediastinal or hilar adenopathy is noted. The heart demonstrates no pericardial effusion. Pacemaker leads are in place. Coronary artery calcifications are noted. The trachea and major bronchi appear patent. The lung arita demonstrate no evidence of alveolar consolidation. No pleural fluid is identified. No new there is a tiny nodule in the right upper lobe anteriorly measuring 4 mm of uncertain clinical significance. Additional 5 mm pleural-based nodule is noted in the medial right lower lobe. No alveolar consolidation is noted. IMPRESSION: Right upper lobe nodule measuring 4 mm unchanged from previous exam. Right lower lobe nodule posterior medially measuring 5 mm. In a low-risk patient follow-up exam in 12 months is suggested. In a high risk patient follow-up exam could be done in 6 months. No evidence of alveolar consolidation or masses are identified. <Electronically signed by Cherelle Sy MD in OV> 11/06/16 1304 Dictated By: Cherelle Sy MD Dictated Date/Time: 11/06/16 1304 Transcribed Date/Time: 11/06/16 1250 Copy to: CC:Kishan Raymond MD; Kody Quezada DO; Keaton Estrada MD; Binh Giles MD; Evelio Fields MD Imaging - [facility] Imaging - [place] [facility] [address] [place] [address] ph [phone] ph ([phone]) ph ([phone]) 1 of 1 Assessment - Problem List Assessment: Patient Problems Acute dyspnea (Acute) Anxiety disorder (Acute) Chest pressure (Acute) Depression (Acute) History of orthopnea (Acute) Suicide and self-inflicted injury (Acute) Anorexia (Chronic) Atrial fibrillation (Chronic) BPH (benign prostatic hypertrophy) (Chronic) Glaucoma (Chronic) Irritable bowel disease (Chronic) Pacemaker (Chronic) Weight loss (Chronic) Plan: Suicide and self-inflicted injury (Acute) He verbalizes that he won't try suicide again. However, at this point I think we need a more careful risk assessment Acute dyspnea (Acute)Anxiety disorder (Acute)Chest pressure (Acute)Depression ( Acute)History of orthopnea (Acute) Once again, no somatic cause for his dysnea was found on CT scan. He has a history of somatic manifestations of anxiety ( IBS, sweating at night) each of these he has seen as insurmountable problems. I think that the chest issues are most likely (though one can never completely rule out an organic component) psychogenic. Anorexia (Chronic)Weight loss (Chronic) I think that mirtazapine is a great choice of antidepressant. He has tolerated it at this dose and I am hopeful we can now start a stepwise increase of this dose - I will defer this to psychiatry Atrial fibrillation (Chronic) no episodes BPH (benign prostatic hypertrophy) (Chronic) secondary diagnosis Glaucoma (Chronic) secondary diagnosis Irritable bowel disease (Chronic) secondary diagnosis Pacemaker (Chronic) I explained to the patient I strongly recommend and prescribe a period of psychological convalescence/rehab prior to discharge home. I have discussed the analogy of his need for subacute rehab in a SNF after his pneumonia. I have told him that I will still see him while he is in the unit. I explained the team approach in the [facility] and how this is safe place for him to recover. He tells me he will follow my recommendations. If he declines a bed when it is available, I am willing to be a second MD signature for involuntary admission as I remain concerned that he is a risk to himself. I spoke with Aurea again. She asked if the psychiatrist had seen Elma as when she asked he said he had not seen anyone significant. I explained that he told me that he didn't want psychiatry to speak to her as it would be distressing. She clearly would like an opportunity to speak with Dr. Childers and will likely discuss this with Elma. I discussed the current plan - transfer to [facility] when a bed is available and she strongly endorses this and told Elma that if there was any question about this she would promote this plan.
[2016-11-07] MEDS: CMCS: Dorzolamide 2% OPTH (NF) 10 ML BTL BOTH EYES SCH ×2 (10:10→21:32)
[2016-11-07] MEDS: CMCS: Brimonidine P 0.1%(NF) 1 DROP BTL BOTH EYES SCH ×2 (10:10→21:57)
--- NOTE | 2016-11-07 14:21 | CONSULT ---
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 Today the patient remains somewhat irritable. He has asked the nursing staff for prune juice for constipation and appears irritated that it has yet to be provided. We recapitulate his discussion with his attending, Dr. Raymond, from this morning and the patient appears resigned to being transferred to the [facility], pending bed availability. He continues to endorse dysthymia and pessimism about the prospects of a fulfilling life in the future, given his chest discomfort and related functional limitations, although he does note that these inclinations have abated somewhat over the last 1-2 days. He gives me permission to contact his , Aurea ([phone]), and a message is left on her voicemail. He denies untoward effects from mirtazapine and denies active suicidal planning, stating "No. I think once is enough for just about anyone." O: aging white male, slender with kumar hair, laying in bed with head elevated mechanically. Interpersonal relatedness is cooperative but irritable. Patient is depressed with slow speech and constricted affect. He is quite intelligent as evidenced by his academic attainment, rich vocabulary and fund of knowledge. He endorses passive SI. A/P: MDD, Severe without psychotic features: The patient remains a risk to end his life, despite his protestations to the contrary. He is now medically cleared and awaits an open male bed on the BSU. Recommend continuation of mirtazapine 7.5mg PO qhs. Will pursue collateral contact with the patient's spouse. The patient is informed of this plan and, as of now, is willing to sign in voluntarily, although involuntary commitment papers would certainly be justified should he change his mind.
[2016-11-07] MEDS ORDERED: Docusate CAP* 100 MG PO PRN (18:04)
[2016-11-07] MEDS ORDERED: Polyethylene Glycol 3350* 17 GM PACKET PO PRN (18:04)
[2016-11-07] MEDS: CMCS: Alfuzosin ER (NF) 10 MG TAB.ER PO SCH (18:30)
[2016-11-07] MEDS: Finasteride TAB* 5 MG PO SCH (18:30)
[2016-11-07] MEDS: Latanoprost 0.005%* 2.5 ml BTL BOTH EYES SCH (20:58)
[2016-11-07] MEDS: Mirtazapine TAB* 15 MG PO SCH (21:04)
[2016-11-07] MEDS: Triazolam TAB* 0.25 MG PO SCH (21:56)
--- NOTE | 2016-11-08 08:37 | PN ---
Subjective - Subjective Reason for Note: Progress Note History: He has concerns about his right hallux toenail. Otherwise, no problems today. His chest symptoms (heaviness/dyspnea/orthopnea) are the same, or maybe slightly better Active Problems: Active Problems Acute dyspnea (Acute) R06.00 Anxiety disorder (Acute) F41.9 Chest pressure (Acute) R07.89 Depression (Acute) F32.9 History of orthopnea (Acute) Z87.898 Suicide and self-inflicted injury (Acute) X83.8XXA Anorexia (Chronic) R63.0 Atrial fibrillation (Chronic) I48.91 BPH (benign prostatic hypertrophy) (Chronic) N40.0 Glaucoma (Chronic) H40.9 Irritable bowel disease (Chronic) Pacemaker (Chronic) Z95.0 Weight loss (Chronic) Current Medications: Current Medications Acetaminophen (Tylenol Tab*) 650 mg PO Q4H PRN PRN Reason: FEVER/PAIN Last Admin: 11/07/16 01:39 Dose: 650 mg Alfuzosin HCl (Uroxatral (Nf)) 10 mg PO 1800 [facility] Last Admin: 11/07/16 18:30 Dose: 10 mg Brimonidine Tartrate (Alphagan P 0.1% (Nf)) 1 drop BOTH EYES BID [facility] Last Admin: 11/07/16 21:57 Dose: 1 drop Docusate Sodium (Colace Cap*) 100 mg PO BID PRN PRN Reason: CONSTIPATION Dorzolamide HCl (Trusopt 2% Opth (Nf)) 1 drop BOTH EYES BID [facility] PRN Reason: Protocol Last Admin: 11/07/16 21:32 Dose: 1 drop Finasteride (Proscar Tab*) 5 mg PO 1800 [facility] Last Admin: 11/07/16 18:30 Dose: 5 mg Latanoprost (Xalatan 0.005%*) 1 drop BOTH EYES BEDTIME [facility] Last Admin: 11/07/16 20:58 Dose: 1 drop Mirtazapine (Remeron Tab*) 7.5 mg PO BEDTIME [facility] Last Admin: 11/07/16 21:04 Dose: 7.5 mg Polyethylene Glycol/Electrolytes (Miralax*) 17 gm PO DAILY PRN PRN Reason: CONSTIPATION Triazolam (Halcion Tab*) 0.5 mg PO BEDTIME [facility] Last Admin: 11/07/16 21:56 Dose: 0.5 mg Home Medications: Home Medications Medication Instructions Recorded Confirmed Type Dorzolamide 2% OPTH (NF) [Trusopt 1 drop BOTH EYES BID 01/19/16 11/03/16 History 2% OPTH (NF)] Finasteride [Proscar] 5 mg PO DAILY 01/19/16 11/03/16 History Latanoprost 0.005% OPTH (NF) 1 drop BOTH EARS BEDTIME 01/19/16 11/03/16 History [Xalatan 0.005% OPTH*] Alfuzosin HCl [Alfuzosin HCl ER] 10 mg PO QPM 06/25/16 11/03/16 History Brimonidine P 0.1%(NF) [Alphagan P 1 drop BOTH EYES BID 06/25/16 11/03/16 History 0.1% (NF)] Triazolam TAB* [Halcion TAB*] 1 - 2 tab PO BEDTIME 06/25/16 11/03/16 History Acetaminophen TAB* [Tylenol TAB*] 500 mg PO BEDTIME 11/03/16 11/03/16 History Allergies: Allergies Allergy/AdvReac Type Severity Reaction Status Date / Time No Known Allergies Allergy Verified 01/19/16 19:24 Objective - Vital Signs Vital Signs: Vital Signs 11/07/16 11/07/16 11/07/16 11:56 16:12 18:23 Temperature 97.7 F 98.7 F 98.7 F Pulse Rate 62 74 80 Respiratory 16 16 16 Rate Blood Pressure 97/55 115/60 106/73 (mmHg) O2 Sat by Pulse 98 99 99 Oximetry 11/07/16 11/07/16 11/08/16 18:33 20:00 00:29 Temperature 98.7 F 97.9 F Pulse Rate 80 68 Respiratory 16 16 16 Rate Blood Pressure 106/73 123/71 (mmHg) O2 Sat by Pulse 99 97 Oximetry 11/08/16 07:09 Temperature 97.5 F Pulse Rate 80 Respiratory 16 Rate Blood Pressure 144/59 (mmHg) O2 Sat by Pulse 100 Oximetry - Intake and Output Intake and Output: Intake & Output 11/05/16 11/06/16 11/07/16 11/08/16 11:59 11:59 11:59 11:59 Intake Total 600 2320 1410 1000 Output Total 0 0 0 Balance 600 2320 1410 1000 Intake: Oral 600 2320 1410 1000 Output: Urine 0 0 0 Other: Estimated Void Medium Small Medium Small # Bowel Movements 0 1 0 0 Estimated Stool Amount Small Small Medium # Voids 3 1 4 1 ADLs: Meal Record Start: 11/03/16 22: 02 Freq: DAILY@0900,1400,1800 Status: Active Document 11/04/16 09:00 [id number] (Rec: 11/04/16 12:37 [id number] TELE-M10) Document 11/04/16 12:38 [id number] (Rec: 11/04/16 12:38 [id number] TELE-M10) Document 11/04/16 18:00 [id number] (Rec: 11/04/16 18:46 [id number] TELE-C01) Document 11/05/16 09:00 [id number] (Rec: 11/05/16 12:09 [id number] TELE-M10) Document 11/05/16 14:00 [id number] (Rec: 11/05/16 14:51 [id number] TELE-M10) Document 11/05/16 17:52 [id number] (Rec: 11/05/16 17:53 [id number] TELE-M10) Document 11/06/16 09:05 JFI0152 (Rec: 11/06/16 09:05 GSP2202 TELE-M10) Document 11/06/16 12:55 CFO2211 (Rec: 11/06/16 12:56 [id number] TELE-M10) Document 11/06/16 18:00 [id number] (Rec: 11/06/16 19:30 [id number] TELE-L04) Document 11/07/16 09:00 [id number] (Rec: 11/07/16 09:38 [id number] [facility]-RDC2) Document 11/07/16 13:54 [id number] (Rec: 11/07/16 13:54 [id number] TELE-M10) Document 11/07/16 18:00 [id number] (Rec: 11/07/16 21:33 YMQ1393 TELE-M10) Intake and Output Start: 11/03/16 22: 02 Freq: DAILY@0600,1400,2200 Status: Active Document 11/04/16 05:40 [id number] (Rec: 11/04/16 05:42 [id number] TELE-M10) Document 11/04/16 12:40 KCA8280 (Rec: 11/04/16 12:40 DJO6350 TELE-M10) Document 11/04/16 21:44 VZS0754 (Rec: 11/04/16 21:44 [id number] TELE-M10) Document 11/05/16 05:36 LRE8715 (Rec: 11/05/16 05:37 LZN4919 TELE-C32) Document 11/05/16 14:00 [id number] (Rec: 11/05/16 14:51 [id number] TELE-M10) Document 11/05/16 22:00 XLE2688 (Rec: 11/05/16 22:43 [id number] TELE-M10) Document 11/06/16 06:00 UJQ1360 (Rec: 11/06/16 06:26 FAV6777 TELE-C01) Document 11/06/16 12:55 [id number] (Rec: 11/06/16 12:56 CSM7838 TELE-M10) Document 11/07/16 06:00 [id number] (Rec: 11/07/16 06:05 [id number] [facility]) Document 11/07/16 13:54 [id number] (Rec: 11/07/16 13:55 ASQ0989 TELE-M10) Document 11/07/16 21:33 GNR1023 (Rec: 11/07/16 21:33 HUW3185 MED-C11) Document 11/08/16 06:00 YCL0596 (Rec: 11/08/16 06:35 LSQ7246 MED-L02) Document 11/08/16 08:23 [id number] (Rec: 11/08/16 08:23 [id number] MED-L02) - Physical Exam General: No Cyanosis, No Anemia, No Jaundice, No Lymphadenopathy, No Clubbing Lungs and Chest: Yes: Chest Expansion Full, Chest Expansion Symetrica, Percussion Note Resonant, Vessicular Breath Sounds. No: Crackles, Wheezes Heart Rate and Rhythm: Regular Additional Cardiovascular: Yes: Normal Heart Sounds. No: Heart Murmur, Pedal Edema Assessment - Problem List Assessment: Patient Problems Acute dyspnea (Acute) Anxiety disorder (Acute) Chest pressure (Acute) Depression (Acute) History of orthopnea (Acute) Suicide and self-inflicted injury (Acute) Anorexia (Chronic) Atrial fibrillation (Chronic) BPH (benign prostatic hypertrophy) (Chronic) Glaucoma (Chronic) Irritable bowel disease (Chronic) Pacemaker (Chronic) Weight loss (Chronic) Plan: He is medically stable. He remains a suicidal risk and requires transfer to the Behavioral Health Unit for risk assessment/psychopharmacology and therapy. He agrees to this. I reviewed Dr. Childers's note. He is medically ready for discharge to the [facility]. Phone call with his - Keeley (prefers this to Aurea).
[2016-11-08] MEDS: CMCS: Dorzolamide 2% OPTH (NF) 10 ML BTL BOTH EYES SCH (09:48)
[2016-11-08] MEDS: CMCS: Brimonidine P 0.1%(NF) 1 DROP BTL BOTH EYES SCH (09:48)
--- NOTE | 2016-11-08 13:28 | CONSULT ---
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 Today the patient is seen in his new room on the 4[facility]N unit. He continues to complain about the necessity of the 1-to-1 aide, stating "I don't feel comfortable even talking to my with them in the room." He is now agreeable to transfer to the B[facility], however, we still lack an available bed. I did speak with his , "Keeley" ( [phone]) who reports, understandably, her shock and alarm at discovering her bleeding in their home following his attempt. It is her intuition that he remains considerably despondent and would try to end his life if given a chance, although not likely in the same fashion. She is very much in support of his transfer to the BSU and is willing and eager to be an active participant in both his treatment and discharge planning on that unit. O: aging white male, slender with kumar hair, laying in bed with head elevated mechanically. Interpersonal relatedness is cooperative but irritable. Patient is depressed with slow speech and constricted affect. He is quite intelligent as evidenced by his academic attainment, rich vocabulary and fund of knowledge. He endorses passive SI. A/P: MDD, Severe without psychotic features: The patient remains a risk to end his life, despite his protestations to the contrary. He is now medically cleared and awaits an open male bed on the BSU. Recommend continuation of mirtazapine 7.5mg PO qhs. Patient is accepting of this plan.
[2016-11-08 15:57] VITALS: BP 110/80
--- NOTE | 2016-11-12 00:09 | DS ---
CC: Nahum Childers MD, in the behavioral health unit DISCHARGE SUMMARY: DATE OF ADMISSION: 11/03/16 DATE OF DISCHARGE: 11/08/16 DISCHARGE DIAGNOSES: 1. Suicide attempt by laceration of both wrists. 2. Depression. 3. Anxiety. 4. Dyspnea and chest pressure. COMORBIDITIES: 1. Long-term weight loss. 2. Recent lobar pneumonia. 3. BPH. 4. Glaucoma. 5. Irritable bowel syndrome. 6. Cardiac pacemaker. HISTORY: Los Morris is an 81-year-old right-handed white male. His presentation is docume nted by CHELSEA Rico, in the electronic medical record. In short, this is a chronically sick m jan who had a lobar pneumonia which resulted in his previous hospital admission at the [facility] between 09/11/16 and 09/19/16 and subsequent several weeks of rehabilitation at [facility]. Subsequent to his pneumonia, he had a symptom of dyspnea and chest pr essure particularly when lying flat. He found this symptom overwhelming and dispiriting, and on the day of admission, while his was at the opera, he lacerated both of his wrists and she found hi m 2 or so hours later. She sent him to the emergency department. At that point, he had lost signifi cant blood. PHYSICAL EXAMINATION: Temperature 96.7 degrees Fahrenheit, pulse 105, respirations 17, oxygen satur ation 93% on room air, and blood pressure 164/71. Both upper extremities had bandages around the wr ists, otherwise no focal physical signs. He was alert and oriented, yet depressed and frustrated at his suicide attempt which had failed. LABORATORY DATA: Initial Labs: White count 14.8, hemoglobin 10, platelets 191. INR 1.12, sodium 14 1, bicarbonate 15, BUN 19, creatinine 0.14, lactic acid 9.4, magnesium 1.6, bilirubin elevated at 1. 7, troponin I 0.04. TSH 3.35. Tox screen negative. EKG: Sinus rhythm, no acute disease on the chest x-ray. INITIAL IMPRESSION: Suicide attempt. He required resuscitation, fluid transfusion x2 units, correc tion of metabolic abnormalities. He was managed on the telemetry unit with one-to-one supervision, suicide precautions. TSH 3.35, BNP 68, troponin I series 0.16, 0.15, 0.07. Total calcium was low at 8.2; however, his al bumin was also low at 2.9 so this is likely corrected. OTHER SIGNIFICANT INVESTIGATIONS: He had a nuclear medicine myocardial stress test. This was inter preted by the radiologist as being intermediate risk but by the spray mixer as low risk due to hugo factual attenuation. CT scan of the chest, abdomen, and pelvis because of chronic history of weight loss. Lung nodules 0 .4 cm right upper lobe, patchy airspace disease of right upper lobe, small bilateral pleural effusio ns, diverticulosis. CONSULTATIONS: He was seen in consultation by Dr. Kody Quezada for Cardiology. His consultation is part of the electronic medical record. He felt that his symptoms are atypical for cardiac disease, felt that the hemorrhage caused hypoperfusion of his myocardium and that there was unlikely to be is chemic heart disease at the root of this. In addition, he ordered a transesophageal echocardiogram which showed mild concentric left ventricular hypertrophy, normal left ventricular wall motion, ejec tion fraction 55% to 60%. No other significant abnormalities. He was seen in consultation and also most days within the hospital stay by Dr. Nahum Childers for Ps ychiatry. His consultation notes and followup progress notes are part of the electronic medical rec ord. His impression is major depressive disorder, history of anxiety disorder. He recommended anti depressant therapy for his depressed mood and multiple neurovegetative symptoms and cognitive distor tions. He started him on mirtazapine 7.5 mg q.h.s. with a plan to increase this by titration during the hospital stay. Respiratory function tests performed 11/08/[address] Lara, no obstructive or ventilatory defect. HOSPITAL COURSE: Los Morris showed some regret at not succeeding in his suicidal attempt. He maintained during his hospitalization that he would not try it again. He showed considerable signs of cognitive distortions attributing to other providers' statements, which he himself had made. He showed no longstanding damage from his blood loss and was able to walk without problem around the w aleta. He was cooperative during his hospital stay. He maintained that he continued having the symptom of chest pressure and shortness of breath, partic ularly when lying flat. We also investigated his weight loss during this hospitalization. We ruled out cardiac causes for these symptoms with a stress test and with transthoracic echocardiogram and a BNP level which was normal. We rule out pulmonary causes by spirometry. We ruled out occult neopl asms with a CT scan of chest, abdomen, and pelvis. Hence, we conclude that his chest pressure and d yspnea are functional and not structural problems unless there is some occult process that we are ju st not seeing with the high resolution study. The weight loss also appears to be related to his dep ression and it precedes the pneumonia. On the day of discharge, he was feeling comfortable; if anything, the chest symptoms are slightly im proved. REVIEW OF SYSTEMS: Negative. PHYSICAL EXAMINATION: Temperature is 97.5, pulse 80, respirations 16, blood pressure 144/59, oxygen saturation on room air 100%. No cyanosis, anemia, jaundice, clubbing, or lymphadenopathy. Cardiov ascular System: His pulse is regular. Normal character and volume. Venous pressure not elevated. Heart sounds are normal. No added sounds or murmur. No pedal edema. No carotid bruits. Respirato ry System: His chest was clear. Abdomen was benign. Nervous System: Alert and oriented. Conjugat e eye movements. Cranial nerves II through XII are intact. Normal speech. Arms and legs, normal t one and coordination. His gait was completely normal. He was offered a bed in the behavioral health unit and he agreed to this voluntarily. DISCHARGE MEDICATIONS: 1. Docusate 100 mg twice daily as needed. 2. Mirtazapine 7.5 mg q.h.s. 3. MiraLAX 17 g a day as needed for constipation. 4. Latanoprost 0.005% one drop both eyes at bedtime. 5. Finasteride 5 mg daily. 6. Dorzolamide 2% ophthalmic one drop both eyes twice daily. 7. Triazolam one to two tablets at bedtime p.r.n. for sleep. 8. Brimonidine 0.1% one drop in both eyes twice daily. 9. Alfuzosin 10 mg q.h.s. 10. Acetaminophen 500 mg p.r.n. q.h.s. for pain. I discussed this case throughout his hospitalization with the patient and also his , Keeley Morris (Dor othy). She agreed that he requires a period in the behavioral health unit for titration of his pharmacology and also for some psychotherapy and assessment. [id number]/[facility] #: [id number]
== END 2016-11-08 18:45 | DRG 876 ==
LOC: ED 17:19 → MEDTELE 21:22 → MED 11-07 16:40
PROVIDERS: ADMIT Hospitalist; ATTEND Internal Medicine
PROC: 0JQH3ZZ Repair Left Lower Arm Subcutaneous Tissue and Fascia, Percutaneous Approach (ICD-10-PCS; principal; 2016-11-03)
PROC: 0JQG3ZZ Repair Right Lower Arm Subcutaneous Tissue and Fascia, Percutaneous Approach (ICD-10-PCS; 2016-11-03)
PROC: 30233N1 Transfusion of Nonautologous Red Blood Cells into Peripheral Vein, Percutaneous Approach (ICD-10-PCS; 2016-11-03)
DX: F32.2 Major depressive disorder, single episode, severe without psychotic features (principal); E87.2 Acidosis; R06.00 Dyspnea, unspecified; I48.0 Paroxysmal atrial fibrillation; E83.42 Hypomagnesemia; D62 Acute posthemorrhagic anemia; S61.512A Laceration without foreign body of left wrist, initial encounter; S61.511A Laceration without foreign body of right wrist, initial encounter; X78.1XXA Intentional self-harm by knife, initial encounter; Y92.002 Bathroom of unspecified non-institutional (private) residence as the place of occurrence of the external cause; F41.9 Anxiety disorder, unspecified; R07.89 Other chest pain; N40.0 Benign prostatic hyperplasia without lower urinary tract symptoms; H40.9 Unspecified glaucoma; K58.9 Irritable bowel syndrome, unspecified; D72.829 Elevated white blood cell count, unspecified; R74.8 Abnormal levels of other serum enzymes; R63.0 Anorexia; Z95.0 Presence of cardiac pacemaker; Z79.899 Other long term (current) drug therapy; Z79.1 Long term (current) use of non-steroidal anti-inflammatories (NSAID); Z96.653 Presence of artificial knee joint, bilateral
CPT/HCPCS: 36415; 71010; 71250; 78452; 80048; 80053; 80076; 80307; 80320; 80329; 81003; 82140; 82247; 82248; 82550; 82553; 83036; 83605; 83735; 83880; 83970; 84443; 84484; 85025; 85027; 85610; 85730; 86140; 86850; 86900; 86901; 86922; 90715; 93005; 93017; 93306; 94010; 99285; A9270-GY; A9502; G0480; J2785; J3475; P9040

== ENCOUNTER 2016-11-08 16:08 | Inpatient (IN) | payer MEDICARE, OTHER ==
[2016-11-09] MEDS ORDERED: Acetaminophen TAB* 325 MG PO PRN (00:16)
[2016-11-09] MEDS ORDERED: Al Hydrox/Mg Hydrox/Simet LIQ* 30 ML UDC PO PRN (00:16)
[2016-11-09] MEDS ORDERED: Mirtazapine TAB* 15 MG PO SCH (02:00)
[2016-11-09] MEDS: Latanoprost 0.005%* 2.5 ml BTL BOTH EYES SCH ×2 (02:00→21:02)
[2016-11-09] MEDS: DORZOLAMIDE 2% BOTH EYES SCH ×4 (02:00→21:19)
[2016-11-09] MEDS: BRIMONIDINE P 0.1% BOTH EYES SCH ×4 (02:00→20:42)
[2016-11-09] MEDS ORDERED: Triazolam TAB* 0.25 MG ONE (02:05)
[2016-11-09] MEDS: Triazolam TAB* 0.25 MG PO SCH ×2 (02:05→21:38)
[2016-11-09] MEDS: Vitamin THERAPEUTIC TAB PO SCH (10:39)
--- NOTE | 2016-11-09 16:47 | HP ---
DATE OF ADMISSION: 11/08/2016. JUSTIFICATION FOR ADMISSION: The patient is in need of 24 hour supervision and care secondary to suicidal ideations voiced within 72 hours of admission date. CHIEF COMPLAINT: "I did what I did, now that's all done with and I think I should go home." HISTORY OF PRESENT ILLNESS: The patient is an 81-year-old, , white male , retired [facility] [employer] [facility] [employer] with a history of anxiety who was just transferred to Psychiatry from the Medical service following several days of medical stabilization from a very severe suicide attempt in which he lacerated his bilateral wrists with a kitchen knife. Apparently the patient's found him in their bedroom, discovered blood throughout their room, as well as in their bathroom and she immediately contacted emergency services. The patient's justification for this action is that he feels pessimistic about his probability of leading a pain free life. Apparently he was hospitalized at this facility for pneumonia in early September 2016 and from there briefly went to a nursing rehab facility before returning home. Since then he has complained consistently of constant pressure in his chest which prevents him from lying flat or catching his breath if he is standing or ambulating. The patient indicates that he had met with both Pulmonology as well as Cardiology and his impression from these evaluations was that his condition was not likely to improve. He was quoted as saying "if you have something that's wrecking your life and there is nothing that you can do to improve it, suicide is a rational action." The patient showed several signs of cognitive distortions in that he attributes his bleak medical situation to a prognosis that he received from multiple clinicians, including during his brief medical hospitalization. More specifically, he was stating that one of the attendings that rounded on him over the weekend told him that it was true that his condition was unlikely to improve. I understood from Dr. Kishan Raymond, who was the patient's attending on the Medical service, that this was not necessarily the case and that the medical diagnostic work-up had indicated no physiological findings that would explain his chest discomfort. It is the belief of the medical team that the patient's dyspnea is likely psychosomatic and attributable to his underlying depression. The thought of the medical treatment staff is that if his depression were to improve, that his pain would be reduced and his overall quality of life would markedly improve. On exam, the patient is a thin and somewhat frail, aging white male lying in bed with his head slightly raised. He is cantankerous and irritable. He continues to endorse a pessimistic outlook on his life prospects. In addition to depressed mood, he endorsed difficulty sleeping, anhedonia, guilt, decreased energy, poor concentration, lack of appetite, psychomotor retardation and feelings that his situation led him to believe that was preferable. PAST PSYCHIATRIC HISTORY: The patient used to see a local psychiatrist, a Dr. Hinton. He was treated for a long time with Amitriptyline, but this was discontinued in September during his spell of pneumonia due to concerns of metabolic complications. He has also been treated in the past with Clonazepam and Halcion for sleep. He denies any past history of suicidality and has not history of psychiatric hospitalization. He denies any past history of abuse or neglect while growing up and has no history of traumatic brain injury. PAST MEDICAL HISTORY: Significant for arrhythmias. He had a pacemaker inserted in June 2016. He has also suffered from irritable bowel syndrome , recent pneumonia in September 2016, bilateral knee surgeries, benign prostatic hypertrophy, glaucoma, and paroxysmal atrial fibrillation. CURRENT MEDICATIONS: 1. Triazolam 0.5 mg at bed for sleep. 2. Brimonidine 0.1 percent one drop bilaterally for glaucoma. 3. Dorzolamide 2 percent ophthalmic solution one drop bilaterally b.i.d. 4. Proscar 5 mg p.o. daily. 5. Alfuzosin ER 10 mg p.o. daily. 6. Xalatan 0.005 percent one drop both eyes at bedtime. ALLERGIES: He has no known drug allergies. FAMILY HISTORY: Negative for psychiatric disorders and he indicates that he is unaware of any family members who have completed suicide. SUBSTANCE ABUSE HISTORY: Significant for social alcohol drinking until approximately 20 years ago when he was asked by his doctor to stop because of irritable bowel syndrome. He has no history of tobacco abuse and has never used illicit drugs. SOCIAL HISTORY: The patient is from [facility]. His father apparently when he was 7-years-old. The patient went to college briefly at [employer], then returned to [employer] to finish his bachelor's degree in [place] at [employer]. 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 He has been since 1966; this is his only marriage. He does have one son, age 40, and two grandchildren. He has no history of service and no legal history. He self-identifies as Congregational. REVIEW OF SYSTEMS: The patient continues to complain of a tightness in his chest and difficulty breathing, which is positional in nature and exacerbated by lying flat or exertional walking. Other than this, he denies headache or double vision; he denies sore throat or cough; he denies abdominal pain, nausea , vomiting, diarrhea, or constipation; he denies rashes, fevers or enlarged lymph nodes. PHYSICAL EXAMINATION VITAL SIGNS: Blood pressure 110/80, heart rate 64, respiratory rate 16, temperature 98.4 degrees Fahrenheit, oxygen saturations 99 percent on room air. HEENT: Head is normocephalic, atraumatic. NECK: Supple. CHEST: Clear to auscultation bilaterally. CARDIAC: Exam reveals normal heart sounds. ABDOMEN: Soft and nontender. EXTREMITIES: Reveals that his wrists are covered with clean DARRIN bandages. NEUROLOGIC: He is grossly intact with no focal deficits. LABORATORY DATA: He is slightly anemic with a hemoglobin of 10.1 and a hematocrit of 29. Complete metabolic panel is significant for elevated bilirubin at 1.70, his C-reactive protein is elevated at 10.24. Urinalysis was within normal limits. Urine drug screen was positive only for benzodiazepines, which are prescribed. MENTAL STATUS EXAMINATION: The patient is an aging white male, looking somewhat frail and underweight, who is dressed in a blue sweatshirt and kumar sweatpants, who is covered up by blankets, sitting in bed with his head elevated. He has poor contact and his eyes are closed for much of our interview , although sometimes he will face me to respond to questions. Speech is slow, but quite articulate. He has an excellent vocabulary. It is easy to establish a rapport with him, but he is irritable at times. Mood is depressed with a constricted affect. Thought process is linear and goal-directed. Thought content is mostly somatic with complaints of tightness in his chest and dyspnea. He does endorse passive suicidality, but denies any sort of plan to further harm himself, rationalizing that he has tried this once and is unlikely to try it again. He does admit to guilt about how his discovered him. He denies homicidal ideations. He denies auditory or visual hallucinations. Insight and judgment appear to be limited given his reluctance to undergo psychiatric treatment. Cognitively, he is awake and alert with what is obviously an above average intellect. DIAGNOSES: AXIS I: Major depressive disorder, single episode, severe with psychotic features; unspecified anxiety disorder by history. AXIS II: Deferred. AXIS III: Paroxysmal atrial fibrillation, benign prostatic hypertrophy, glaucoma, irritable bowel syndrome, recent history of pneumonia, pacemaker insertion in June 2016, bilateral knee surgeries ten years ago. AXIS IV: Moderate, primary support stressors. AXIS V: At time time is 35. 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 The Psychiatry team has been following him on the Medical service and now that he is medically cleared, he is being transferred to the Behavioral Science Unit. I have already had conversations with his , whose name is Keeley, and she is very much willing to come in and be a part of the treatment process. Specifically we need to vet the details of his suicide attempt and understand more completely what his motivations for this were. I also think that safety planning will be essential prior to his discharge back to the community. We have already started an antidepressant, which is Mirtazapine at the dose of 7.5 mg p.o. at bedtime, which he is tolerating well. PLAN: The patient is admitted to the Adult Behavioral Health Unit where he is placed on q.30 minute checks for his own safety. I do think at this point it is reasonable to increase the Mirtazapine dose from 7.5 to 15 mg p.o. at bedtime. I would like to arrange a family meeting with his , either on Saturday or Saturday, to discuss threat mitigation and other strategies to reduce the patient's risk. We also need to discuss what type of follow-up treatment would be necessary. He does have a good relationship with Dr. Raymond, who could easily manage the antidepressant, but I do think that he would benefit from psychotherapy in addition. While he is here he is certainly encouraged to avail himself of all group and milieu activities, as well as individual treatment. [id number]/[facility] #: [id number] MARIANNAD
[2016-11-09] MEDS: Polyethylene Glycol 3350* 17 GM PACKET PO PRN (17:54)
[2016-11-09] MEDS: CMCS: Alfuzosin ER (NF) 10 MG TAB.ER PO SCH ×2 (18:23→18:45)
[2016-11-09] MEDS: Finasteride TAB* 5 MG PO SCH ×2 (18:23→18:44)
[2016-11-09] MEDS: Mirtazapine TAB* 15 MG PO SCH (21:38)
[2016-11-10] MEDS: Polyethylene Glycol 3350* 17 GM PACKET PO PRN (08:14)
[2016-11-10] MEDS: Vitamin THERAPEUTIC TAB PO SCH (08:16)
[2016-11-10] MEDS: Docusate CAP* 100 MG PO PRN (09:58)
[2016-11-10] MEDS: DORZOLAMIDE 2% BOTH EYES SCH ×2 (10:01→22:10)
[2016-11-10] MEDS: BRIMONIDINE P 0.1% BOTH EYES SCH ×2 (10:13→21:31)
--- NOTE | 2016-11-10 12:08 | PN ---
Subjective - Subjective Reason for Note: Consultation Note History: Internal medicine/primary care: He states that he accepts now that his dypsnea and chest pressure are likely functional and not structural. He states that it is improving. He continues to have marked anorexia and has to force himself to eat. The [facility] is a difficult context for him and he feels it is demoralizing him rather than helping. He would like to go home and states that he is not interested in further suicide attempts. Current Medications: Current Medications Acetaminophen (Tylenol Tab*) 650 mg PO Q4H PRN PRN Reason: PAIN or TEMP > 101 F Al Hydrox/Mg Hydrox/Simethicone (Maalox Plus*) 30 ml PO Q4H PRN PRN Reason: INDIGESTION Alfuzosin HCl (Uroxatral (Nf)) 10 mg PO 1800 [facility] Last Admin: 11/09/16 18:45 Dose: 10 mg Brimonidine Tartrate (Alphagan P 0.1% (Nf)) 1 drop BOTH EYES BID [facility] Last Admin: 11/10/16 10:13 Dose: 1 drop Docusate Sodium (Colace Cap*) 100 mg PO BID PRN PRN Reason: CONSTIPATION Last Admin: 11/10/16 09:58 Dose: 100 mg Dorzolamide HCl (Trusopt 2% Opth (Nf)) 1 drop BOTH EYES BID [facility] Last Admin: 11/10/16 10:01 Dose: 1 drop Finasteride (Proscar Tab*) 5 mg PO 1800 [facility] Last Admin: 11/09/16 18:44 Dose: 5 mg Latanoprost (Xalatan 0.005%*) 1 drop BOTH EYES BEDTIME [facility] Last Admin: 11/09/16 21:02 Dose: 1 drop Mirtazapine (Remeron Tab*) 15 mg PO BEDTIME [facility] Last Admin: 11/09/16 21:38 Dose: 15 mg Multivitamins (Theragran Tab*) 1 tab PO DAILY [facility] Last Admin: 11/10/16 08:16 Dose: 1 tab Polyethylene Glycol/Electrolytes (Miralax*) 17 gm PO DAILY PRN PRN Reason: CONSTIPATION Last Admin: 11/10/16 08:14 Dose: 17 gm Triazolam (Halcion Tab*) 0.5 mg PO BEDTIME [facility] Last Admin: 11/09/16 21:38 Dose: 0.5 mg Home Medications: Home Medications Medication Instructions Recorded Confirmed Type Dorzolamide 2% OPTH (NF) [Trusopt 1 drop BOTH EYES BID 01/19/16 11/09/16 History 2% OPTH (NF)] Finasteride [Proscar] 5 mg PO DAILY 01/19/16 11/09/16 History Latanoprost 0.005% OPTH (NF) 1 drop BOTH EYES BEDTIME 01/19/16 11/09/16 History [Xalatan 0.005% OPTH*] Alfuzosin HCl [Alfuzosin HCl ER] 10 mg PO QPM 06/25/16 11/09/16 History Brimonidine P 0.1%(NF) [Alphagan P 1 drop BOTH EYES BID 06/25/16 11/09/16 History 0.1% (NF)] Triazolam TAB* [Halcion TAB*] 2 tab PO BEDTIME 06/25/16 11/09/16 History Acetaminophen TAB* [Tylenol TAB*] 650 mg PO Q4HR PRN 11/03/16 11/09/16 History Allergies: Allergies Allergy/AdvReac Type Severity Reaction Status Date / Time No Known Allergies Allergy Verified 11/09/16 09:23 Objective - Vital Signs Vital Signs: Vital Signs 11/09/16 11/10/16 11/10/16 11:54 07:43 10:33 Temperature 98.3 F Pulse Rate 74 Respiratory 18 16 16 Rate Blood Pressure 126/73 (mmHg) O2 Sat by Pulse 99 Oximetry - Intake and Output Intake and Output: Intake & Output 11/07/16 11/08/16 11/09/16 11/10/16 11:59 11:59 11:59 11:59 Weight 126 lb ADLs: Meal Record Start: 11/08/16 20: 06 Freq: Status: Active Created 11/08/16 20:06 System (Rec: 11/08/16 20:06 System [id number]) Assessment - Problem List Assessment: Patient Problems Acute dyspnea (Acute) Anxiety disorder (Acute) Chest pressure (Acute) Depression (Acute) History of orthopnea (Acute) Suicide and self-inflicted injury (Acute) Anorexia (Chronic) Atrial fibrillation (Chronic) BPH (benign prostatic hypertrophy) (Chronic) Glaucoma (Chronic) Irritable bowel disease (Chronic) Pacemaker (Chronic) Weight loss (Chronic) Plan: Suicide and self-inflicted injury (Acute)Depression (Acute) Anxiety disorder ( Acute)History of orthopnea (Acute)He is on the U for treatment and risk stratification. He accepts the need for psychopharmacology and is tolerating the mirtazapine. This was increased yesterday. Acute dyspnea (Acute)/Chest pressure (Acute) This symptom is less insistent. We have been unable to uncover a physical cause for this problem. It started after his severe pneumonia and I think this made him focus on his breathing/ chest sensations. I have explained to the patient that this is likely a functional and not a structural problem. He is improving Anorexia (Chronic) Weight loss: This preceded his pneumonia and remains a problem that is not solved. Most likely it is a vegetative symptom of depression. However, it is possible that he has an underlying occult physical cause (perhaps neoplastic or maybe an very atypical manifestation of an immune problem or metabolic such as PMR). Mirtazapine is an excellent choice of agent for this. I discussed the above with the patient. He represented to me strongly that the U is not helping him and may be negative. I spoke to Mina (Dorothy) Arturo () - she had a meeting with her and Dr. Childers. This was painful. She thinks he needs to be in the U. Also, she thinks he needs a proper trial of remeron with current dosimetry as in the past he has stated that medications haven't worked and abandoned them too soon. She thinks we should err on the side of being an inpatient longer. When he self-injured he cut his wrists at 1 am while she was out at the opera and not due to return until 4:30 pm. She was the only one who would find him. He stated he thought this was the only way he could end his life - despite having many bottles of antidepressant. He had 2.5 hours to "finish the job" and she doesn't understand why he didn't. In addition, he was wandering around the house and this created a widespread mess in upstairs in 2 rooms - bedroom and clifford bathroom. She and her son have had to clean this. She hadn't initially thought this was a gesture aimed at her. She viewed it as here was a mess and it hadn't work and she needed to come home and fix it. "I do a lot of that" - apologizing for him, giving her messages. "I am the fixer". She thinks he has a lack of autonomy and invests others with the responsibility for his own actions. It is not only that he needs time in the U, she needs some time too. Their Son Israel has asked whether there is an underyling dementing illness that may be a contributing factor in this longstanding change in his behavior. Most likely, this would be a fronto-temporal dementia as he appears to be well oriented. This may be something that can be addressed by the psychologist on the U through a more formal assessment.
[2016-11-10] MEDS: CMCS: Alfuzosin ER (NF) 10 MG TAB.ER PO SCH (18:38)
[2016-11-10] MEDS: Finasteride TAB* 5 MG PO SCH (18:38)
[2016-11-10] MEDS: Latanoprost 0.005%* 2.5 ml BTL BOTH EYES SCH (21:51)
[2016-11-10] MEDS: Triazolam TAB* 0.25 MG PO SCH (22:20)
[2016-11-10] MEDS: Mirtazapine TAB* 15 MG PO SCH (22:20)
[2016-11-11] MEDS: Vitamin THERAPEUTIC TAB PO SCH (09:33)
[2016-11-11] MEDS: Polyethylene Glycol 3350* 17 GM PACKET PO PRN ×2 (09:33→15:54)
[2016-11-11] MEDS: DORZOLAMIDE 2% BOTH EYES SCH ×2 (09:33→20:58)
[2016-11-11] MEDS: Docusate CAP* 100 MG PO PRN (09:33)
[2016-11-11] MEDS: BRIMONIDINE P 0.1% BOTH EYES SCH ×2 (09:34→20:57)
--- NOTE | 2016-11-11 12:24 | PN ---
Subjective - Subjective Service Type: 63282 Hosp care 15 min low complexity Subjective: Patient challenged my questions: "what do you need to know from my and what do I have to do to be left alone." Said he "has no idea" why he is hospitalized, but affirms he is safe unto himself in this setting. Denied needs. Objective - Appearance Appearance: Thin Framed Hygiene: Normal Grooming: Disheveled - Behavior Psychomotor Activities: Abnormal-Decreased - Attitude and Relatedness Attitude and Relatedness: Hostile Eye Contact: Good - Speech Quality: Unpressured Latencies: Normal Quantity: Terse - Mood Patient's Decription of Mood: "Angry" - Affect Observed Affect: Tense Affect Consistent with: Dysphoria - Thought Process Patient's Thought Process: Goal Directed, Impoverished Thought Content: No Passive Wish, No Suicidal Planning, No Homicidal Ideation, No Paranoid Ideation - Sensorium Experiencing Hallucinations: No, Sensorium is Clear - Level of Consciousness Level of Consciousness: Alert - Impulse Control Impulse Control: Intact - Insight and Judgement Insight and Judgement: Poor Assessment - Assessment Merits Inpatient Hospitalization: For Immediate Safety, For Stabilization, Diagnosis Determination, To Initiate Treatment, For Ongoing Evaluation, For Discharge Planning, Pending Safe DC Plan Inpatient DSM-IV Dx: Depressive disorder. r.o. Cognitive disorder NOS Clinical Impression: 81 y.o. 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 Medication management is with mirtazapine. Pt's son, Dr. Raymond, in discussion about possible dementing process. Evaluation may include cognitive testing. Plan - Plan Treatment Plan: Name: ELMA HALLMAN Birthdate: 1935 [id number] Medications: Current Medications Acetaminophen (Tylenol Tab*) 650 mg PO Q4H PRN PRN Reason: PAIN or TEMP > 101 F Al Hydrox/Mg Hydrox/Simethicone (Maalox Plus*) 30 ml PO Q4H PRN PRN Reason: INDIGESTION Alfuzosin HCl (Uroxatral (Nf)) 10 mg PO 1800 [facility] Last Admin: 11/10/16 18:38 Dose: 10 mg Brimonidine Tartrate (Alphagan P 0.1% (Nf)) 1 drop BOTH EYES BID [facility] Last Admin: 11/11/16 09:34 Dose: 1 drop Docusate Sodium (Colace Cap*) 100 mg PO BID PRN PRN Reason: CONSTIPATION Last Admin: 11/11/16 09:33 Dose: 100 mg Dorzolamide HCl (Trusopt 2% Opth (Nf)) 1 drop BOTH EYES BID [facility] Last Admin: 11/11/16 09:33 Dose: 1 drop Finasteride (Proscar Tab*) 5 mg PO 1800 [facility] Last Admin: 11/10/16 18:38 Dose: 5 mg Latanoprost (Xalatan 0.005%*) 1 drop BOTH EYES BEDTIME [facility] Last Admin: 11/10/16 21:51 Dose: 1 drop Mirtazapine (Remeron Tab*) 15 mg PO BEDTIME [facility] Last Admin: 11/10/16 22:20 Dose: 15 mg Multivitamins (Theragran Tab*) 1 tab PO DAILY [facility] Last Admin: 11/11/16 09:33 Dose: 1 tab Polyethylene Glycol/Electrolytes (Miralax*) 17 gm PO DAILY PRN PRN Reason: CONSTIPATION Last Admin: 11/11/16 09:33 Dose: 17 gm Triazolam (Halcion Tab*) 0.5 mg PO BEDTIME [facility] Last Admin: 11/10/16 22:20 Dose: 0.5 mg - Discharge Plan Discharge Plan: Outpatient Follow Up
[2016-11-11] MEDS: CMCS: Alfuzosin ER (NF) 10 MG TAB.ER PO SCH (17:58)
[2016-11-11] MEDS: Finasteride TAB* 5 MG PO SCH (17:58)
[2016-11-11] MEDS: Latanoprost 0.005%* 2.5 ml BTL BOTH EYES SCH (20:58)
[2016-11-11] MEDS: Mirtazapine TAB* 15 MG PO SCH (22:29)
[2016-11-11] MEDS: Triazolam TAB* 0.25 MG PO SCH (22:29)
--- NOTE | 2016-11-12 08:53 | PN ---
Subjective - Subjective Reason for Note: Consultation Note History: Primary care: He states his breathing is improving and his chest pressure is less. He continues to need to sleep with the head of the bed at an angle of 15%. He has no cough,sputum. Current Medications: Current Medications Acetaminophen (Tylenol Tab*) 650 mg PO Q4H PRN PRN Reason: PAIN or TEMP > 101 F Al Hydrox/Mg Hydrox/Simethicone (Maalox Plus*) 30 ml PO Q4H PRN PRN Reason: INDIGESTION Alfuzosin HCl (Uroxatral (Nf)) 10 mg PO 1800 [facility] Last Admin: 11/11/16 17:58 Dose: 10 mg Brimonidine Tartrate (Alphagan P 0.1% (Nf)) 1 drop BOTH EYES BID [facility] Last Admin: 11/11/16 20:57 Dose: 1 drop Docusate Sodium (Colace Cap*) 100 mg PO BID PRN PRN Reason: CONSTIPATION Last Admin: 11/11/16 09:33 Dose: 100 mg Dorzolamide HCl (Trusopt 2% Opth (Nf)) 1 drop BOTH EYES BID [facility] Last Admin: 11/11/16 20:58 Dose: 1 drop Finasteride (Proscar Tab*) 5 mg PO 1800 [facility] Last Admin: 11/11/16 17:58 Dose: 5 mg Latanoprost (Xalatan 0.005%*) 1 drop BOTH EYES BEDTIME [facility] Last Admin: 11/11/16 20:58 Dose: 1 drop Mirtazapine (Remeron Tab*) 15 mg PO BEDTIME [facility] Last Admin: 11/11/16 22:29 Dose: 15 mg Multivitamins (Theragran Tab*) 1 tab PO DAILY [facility] Last Admin: 11/11/16 09:33 Dose: 1 tab Polyethylene Glycol/Electrolytes (Miralax*) 17 gm PO DAILY PRN PRN Reason: CONSTIPATION Last Admin: 11/11/16 15:54 Dose: 17 gm Triazolam (Halcion Tab*) 0.5 mg PO BEDTIME [facility] Last Admin: 11/11/16 22:29 Dose: 0.5 mg Home Medications: Home Medications Medication Instructions Recorded Confirmed Type Dorzolamide 2% OPTH (NF) [Trusopt 1 drop BOTH EYES BID 01/19/16 11/09/16 History 2% OPTH (NF)] Finasteride [Proscar] 5 mg PO DAILY 01/19/16 11/09/16 History Latanoprost 0.005% OPTH (NF) 1 drop BOTH EYES BEDTIME 01/19/16 11/09/16 History [Xalatan 0.005% OPTH*] Alfuzosin HCl [Alfuzosin HCl ER] 10 mg PO QPM 06/25/16 11/09/16 History Brimonidine P 0.1%(NF) [Alphagan P 1 drop BOTH EYES BID 06/25/16 11/09/16 History 0.1% (NF)] Triazolam TAB* [Halcion TAB*] 2 tab PO BEDTIME 06/25/16 11/09/16 History Acetaminophen TAB* [Tylenol TAB*] 650 mg PO Q4HR PRN 11/03/16 11/09/16 History Allergies: Allergies Allergy/AdvReac Type Severity Reaction Status Date / Time No Known Allergies Allergy Verified 11/09/16 09:23 Objective - Vital Signs Vital Signs: Vital Signs 11/11/16 13:30 Respiratory 20 Rate - Intake and Output Intake and Output: Intake & Output 11/09/16 11/10/16 11/11/16 11/12/16 11:59 11:59 11:59 11:59 Weight 126 lb ADLs: Meal Record Start: 11/08/16 20: 06 Freq: Status: Active Created 11/08/16 20:06 System (Rec: 11/08/16 20:06 System [id number]) Assessment - Problem List Assessment: Patient Problems Acute dyspnea (Acute) Anxiety disorder (Acute) Chest pressure (Acute) Depression (Acute) History of orthopnea (Acute) Suicide and self-inflicted injury (Acute) Anorexia (Chronic) Atrial fibrillation (Chronic) BPH (benign prostatic hypertrophy) (Chronic) Glaucoma (Chronic) Irritable bowel disease (Chronic) Pacemaker (Chronic) Weight loss (Chronic) Plan: Acute dyspnea (Acute)Chest pressure (Acute) History of orthopnea (Acute) Improving, per the patient's account Suicide and self-inflicted injury (Acute)Anxiety disorder (Acute)Depression ( Acute) He remains in the behavioral care unit and is not pleased about this. He thinks this is bad for moral and set back. However, I explained to him this was appropriate because of the seriousness of his presenting suicide attempt and that I am not a psychiatrist or mental health professional and rely on the professional judgment of my colleagues. I told him there is likely to be a case meeting tomorrow, but I did not know the likely outcome. I called Keeley Alvarez (Dorothy) - I gave her an update. She is trying to reassure him this is best plan.
[2016-11-12] MEDS: Vitamin THERAPEUTIC TAB PO SCH (10:09)
[2016-11-12] MEDS: DORZOLAMIDE 2% BOTH EYES SCH ×2 (10:29→21:08)
[2016-11-12] MEDS: BRIMONIDINE P 0.1% BOTH EYES SCH ×2 (10:29→20:56)
--- NOTE | 2016-11-12 16:18 | PN ---
Subjective - Subjective Service Type: 63238 Hosp care 15 min low complexity Subjective: The patient is found in his room, where he tends to isolate, and he is irritable and somewhat argumentative. He refused to participate in MMPI testing and has not gone to groups. He reports the milieu having an overall negative impact on his moods. "I can't imagine why you would expect me to interact with those people. What good could possibly come from talking to them [peers] about my problems." He goes on to describe his observations and interactions with some of his lower functioning peers on the unit. When it is indicated that group participation is one of the criteria we consider in discharge planning he changes course, stating "Doctor. I will do absolutely anything that you tell me to do in order to get out of here as soon as I possibly can!" He is also confronted about his lack of eating meals and rationalizes this by complaining of constipation. I see that he is on a scheduled stool softener and a prn laxative (Miralax). He denies having spoken to Dr. Raymond about this. The patient continues to deny SI. He reports that his physical condition is improved. Objective - Appearance Appearance: Thin Framed Dysmorphic Features: No Hygiene: Normal Grooming: Well Kept - Behavior Psychomotor Activities: Abnormal-Decreased Exhibits Abnormal Movement: No - Attitude and Relatedness Attitude and Relatedness: Hostile Eye Contact: Poor - Speech Quality: Unpressured Latencies: Normal Quantity: Terse - Mood Patient's Decription of Mood: "Terrible" - Affect Observed Affect: Constricted Affect Consistent with: Dysphoria - Thought Process Patient's Thought Process: Coherent Thought Content: No Passive Wish, No Suicidal Planning, No Homicidal Ideation, No Paranoid Ideation - Sensorium Experiencing Hallucinations: No, Sensorium is Clear Type of Hallucinations: Visual: No, Auditory: No, Command: No - Level of Consciousness Level of Consciousness: Alert Orientation: Yes Intact, Yes Orientated to Time, Yes Orientated to Place, Yes Orientated to Person - Impulse Control Impulse Control: Poor - Insight and Judgement Insight and Judgement: Impaired - Group Participation Particating in Group Activities: No - Medication Management Medication Management Adherence: Yes Assessment - Assessment Merits Inpatient Hospitalization: For Immediate Safety, For Stabilization Inpatient DSM-IV Dx: Depressive disorder. r.o. Cognitive disorder NOS Clinical Impression: 81 y.o. 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 He remains depressed with numerous neurovegetative symptoms. Plan - Plan Treatment Plan: Name: ELMA HALLMAN Birthdate: 1935 [id number] The patient is tolerating mirtazapine 15mg PO qhs well. He is encouraged to attend groups and speaks with Rec Therapist, Radha Harman, who assures him that disruptive, antisocial behavior from peers would not tolerated by group facilitators. We have a family meeting with his , Keeley, tomorrow at 11: 00 for safety considerations. Family has a concern about possible dementia pathology but patient refuses testing. He states that constipation is the reason for his anorexia and this clinician left a message with Dr. Raymond to see if this is something that could be addressed. Continued Medication Management: Start Medication Medications: Current Medications Acetaminophen (Tylenol Tab*) 650 mg PO Q4H PRN PRN Reason: PAIN or TEMP > 101 F Al Hydrox/Mg Hydrox/Simethicone (Maalox Plus*) 30 ml PO Q4H PRN PRN Reason: INDIGESTION Alfuzosin HCl (Uroxatral (Nf)) 10 mg PO 1800 [facility] Last Admin: 11/11/16 17:58 Dose: 10 mg Brimonidine Tartrate (Alphagan P 0.1% (Nf)) 1 drop BOTH EYES BID [facility] Last Admin: 11/12/16 10:29 Dose: 1 drop Docusate Sodium (Colace Cap*) 100 mg PO BID PRN PRN Reason: CONSTIPATION Last Admin: 11/11/16 09:33 Dose: 100 mg Dorzolamide HCl (Trusopt 2% Opth (Nf)) 1 drop BOTH EYES BID [facility] Last Admin: 11/12/16 10:29 Dose: 1 drop Finasteride (Proscar Tab*) 5 mg PO 1800 [facility] Last Admin: 11/11/16 17:58 Dose: 5 mg Latanoprost (Xalatan 0.005%*) 1 drop BOTH EYES BEDTIME [facility] Last Admin: 11/11/16 20:58 Dose: 1 drop Mirtazapine (Remeron Tab*) 15 mg PO BEDTIME [facility] Last Admin: 11/11/16 22:29 Dose: 15 mg Multivitamins (Theragran Tab*) 1 tab PO DAILY [facility] Last Admin: 11/12/16 10:09 Dose: Not Given Polyethylene Glycol/Electrolytes (Miralax*) 17 gm PO DAILY PRN PRN Reason: CONSTIPATION Last Admin: 11/11/16 15:54 Dose: 17 gm Triazolam (Halcion Tab*) 0.5 mg PO BEDTIME [facility] Last Admin: 11/11/16 22:29 Dose: 0.5 mg - Discharge Plan Discharge Plan: Inpatient Hospitalization
[2016-11-12] MEDS: CMCS: Alfuzosin ER (NF) 10 MG TAB.ER PO SCH (18:07)
[2016-11-12] MEDS: Finasteride TAB* 5 MG PO SCH (18:08)
[2016-11-12] MEDS: Latanoprost 0.005%* 2.5 ml BTL BOTH EYES SCH (21:20)
[2016-11-12] MEDS: Mirtazapine TAB* 15 MG PO SCH (21:51)
[2016-11-12] MEDS: Triazolam TAB* 0.25 MG PO SCH (21:51)
[2016-11-13] MEDS: Vitamin THERAPEUTIC TAB PO SCH (10:46)
[2016-11-13] MEDS: BRIMONIDINE P 0.1% BOTH EYES SCH ×2 (10:47→22:01)
[2016-11-13] MEDS: DORZOLAMIDE 2% BOTH EYES SCH ×2 (10:48→22:01)
--- NOTE | 2016-11-13 13:07 | PN ---
[facility]: Group Therapy Note - Service Type Service Type: [id number] Group Psychotherapy - Cognitive Behavioral Group Therapy ( CBT):Patient attended CBT programming this morning and presented with flat affect that did not vary with discussion. Although responsive to direct prompts to respond to questions, patient did not engage in spontaneous conversation.
--- NOTE | 2016-11-13 14:36 | PN ---
Subjective - Subjective Service Type: [id number] [facility] Ps[facility] Subjective: The patient is seen, along with Keeley and SW Cherelle Beltre, for family meeting. He remains irritable and insistent on immediate discharge. "You told me yesterday that if I went to that damn group meeting at 10:00 in the morning that you would let me get out of here!" He is corrected that at no point did I make this statement and that this misunderstanding is part of a larger pattern of his, in which he seems to almost willfully misconstrue the words of caregivers to fit his interpretation or expectation of events. The patient on several occasions demands to be told what he must do to warrant discharge, as if seeking a checklist of sorts. He continues to be observed as hostile, withdrawn, laying all day in bed, not socializing and not eating much. He denies SI strongly and insists that he will not harm himself as he notes that his physical health appears to be improving. His redirects often that he had been exhibiting signs of severe depression prior to the suicide attempt and she would like to see more self-involvement in his treatment and less hostility. Objective - Appearance Appearance: Thin Framed Dysmorphic Features: No Hygiene: Normal Grooming: Well Kept - Behavior Psychomotor Activities: Abnormal-Decreased Exhibits Abnormal Movement: No - Attitude and Relatedness Attitude and Relatedness: Hostile Eye Contact: Fair - Speech Quality: Unpressured Latencies: Normal Quantity: Terse - Mood Patient's Decription of Mood: "Terrible" - Affect Observed Affect: Depressed Affect Consistent with: Dysphoria - Thought Process Patient's Thought Process: Goal Directed Thought Content: No Passive Wish, No Suicidal Planning, No Homicidal Ideation, No Paranoid Ideation - Sensorium Experiencing Hallucinations: No, Sensorium is Clear Type of Hallucinations: Visual: No, Auditory: No, Command: No - Level of Consciousness Level of Consciousness: Alert Orientation: Yes Intact, Yes Orientated to Time, Yes Orientated to Place, Yes Orientated to Person - Impulse Control Impulse Control: Poor - Insight and Judgement Insight and Judgement: Impaired - Group Participation Particating in Group Activities: No - Medication Management Medication Management Adherence: Yes Assessment - Assessment Merits Inpatient Hospitalization: For Immediate Safety, For Stabilization Inpatient DSM-IV Dx: Depressive disorder. r.o. Cognitive disorder NOS Clinical Impression: 81 y.o. 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 He remains depressed with numerous neurovegetative symptoms. Plan - Plan Treatment Plan: Name: ELMA HALLMAN Birthdate: 1935 [id number] The patient is tolerating mirtazapine 15mg PO qhs well. He is encouraged to attend groups and eat meals appropriately. We will start Senna BID for constipation. Continued Medication Management: Continue Outpt Medication Medications: Current Medications Acetaminophen (Tylenol Tab*) 650 mg PO Q4H PRN PRN Reason: PAIN or TEMP > 101 F Al Hydrox/Mg Hydrox/Simethicone (Maalox Plus*) 30 ml PO Q4H PRN PRN Reason: INDIGESTION Alfuzosin HCl (Uroxatral (Nf)) 10 mg PO 1800 [facility] Last Admin: 11/12/16 18:07 Dose: 10 mg Brimonidine Tartrate (Alphagan P 0.1% (Nf)) 1 drop BOTH EYES BID [facility] Last Admin: 11/13/16 10:47 Dose: 1 drop Docusate Sodium (Colace Cap*) 100 mg PO BID PRN PRN Reason: CONSTIPATION Last Admin: 11/11/16 09:33 Dose: 100 mg Dorzolamide HCl (Trusopt 2% Opth (Nf)) 1 drop BOTH EYES BID [facility] Last Admin: 11/13/16 10:48 Dose: 1 drop Finasteride (Proscar Tab*) 5 mg PO 1800 [facility] Last Admin: 11/12/16 18:08 Dose: 5 mg Latanoprost (Xalatan 0.005%*) 1 drop BOTH EYES BEDTIME [facility] Last Admin: 11/12/16 21:20 Dose: 1 drop Mirtazapine (Remeron Tab*) 15 mg PO BEDTIME [facility] Last Admin: 11/12/16 21:51 Dose: 15 mg Multivitamins (Theragran Tab*) 1 tab PO DAILY [facility] Last Admin: 11/13/16 10:46 Dose: Not Given Polyethylene Glycol/Electrolytes (Miralax*) 17 gm PO DAILY PRN PRN Reason: CONSTIPATION Last Admin: 11/11/16 15:54 Dose: 17 gm Triazolam (Halcion Tab*) 0.5 mg PO BEDTIME [facility] Last Admin: 11/12/16 21:51 Dose: 0.5 mg - Discharge Plan Discharge Plan: Inpatient Hospitalization
[2016-11-13] MEDS: CMCS: Alfuzosin ER (NF) 10 MG TAB.ER PO SCH (17:58)
[2016-11-13] MEDS: Finasteride TAB* 5 MG PO SCH (17:58)
[2016-11-13] MEDS: Senna TAB PO SCH (20:20)
[2016-11-13] MEDS: Mirtazapine TAB* 15 MG PO SCH (20:20)
[2016-11-13] MEDS: Triazolam TAB* 0.25 MG PO SCH (20:22)
[2016-11-13] MEDS: Latanoprost 0.005%* 2.5 ml BTL BOTH EYES SCH (22:00)
[2016-11-14] MEDS: DORZOLAMIDE 2% BOTH EYES SCH ×2 (10:35→21:38)
[2016-11-14] MEDS: BRIMONIDINE P 0.1% BOTH EYES SCH ×2 (10:35→21:27)
[2016-11-14] MEDS: Senna TAB PO SCH ×2 (10:35→21:59)
[2016-11-14] MEDS: Vitamin THERAPEUTIC TAB PO SCH (10:45)
--- NOTE | 2016-11-14 15:29 | PN ---
Subjective - Subjective Service Type: 37071 Hosp care 25 min moderate complexity Subjective: The patient is interviewed in his room, where he appears to be resting comfortably. He is notably less irritable today and have several staff reports indicating that his interactions have been far less hostile over the last day. He indicates that he slept well last night and is future oriented in the sense that he talks about going back to his office at [employer] and volunteering again at the [facility]. He continues to deny SI. Objective - Appearance Appearance: Thin Framed Dysmorphic Features: No Hygiene: Normal Grooming: Well Kept - Behavior Psychomotor Activities: Abnormal-Decreased Exhibits Abnormal Movement: No - Attitude and Relatedness Attitude and Relatedness: Cooperative Eye Contact: Fair - Speech Quality: Unpressured Latencies: Normal Quantity: Appropriate - Mood Patient's Decription of Mood: "Upset" - Affect Observed Affect: Constricted Affect Consistent with: Dysphoria - Thought Process Patient's Thought Process: Circumstantial Thought Content: No Passive Wish, No Suicidal Planning, No Homicidal Ideation, No Paranoid Ideation - Sensorium Experiencing Hallucinations: No, Sensorium is Clear Type of Hallucinations: Visual: No, Auditory: No, Command: No - Level of Consciousness Level of Consciousness: Alert Orientation: Yes Intact, Yes Orientated to Time, Yes Orientated to Place, Yes Orientated to Person - Impulse Control Impulse Control: Poor - Insight and Judgement Insight and Judgement: Impaired - Group Participation Particating in Group Activities: Yes - Medication Management Medication Management Adherence: Yes Assessment - Assessment Merits Inpatient Hospitalization: For Immediate Safety, For Stabilization Inpatient DSM-IV Dx: Depressive disorder. r.o. Cognitive disorder NOS Clinical Impression: 81 y.o. 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 He remains depressed with numerous neurovegetative symptoms. Plan - Plan Treatment Plan: Name: ELMA HALLMAN Birthdate: 1935 [id number] The patient is tolerating mirtazapine 15mg PO qhs well. He is encouraged to attend groups and eat meals appropriately. Will continue inpatient treatment. Continued Medication Management: Start Medication Medications: Current Medications Acetaminophen (Tylenol Tab*) 650 mg PO Q4H PRN PRN Reason: PAIN or TEMP > 101 F Al Hydrox/Mg Hydrox/Simethicone (Maalox Plus*) 30 ml PO Q4H PRN PRN Reason: INDIGESTION Alfuzosin HCl (Uroxatral (Nf)) 10 mg PO 1800 [facility] Last Admin: 11/13/16 17:58 Dose: 10 mg Brimonidine Tartrate (Alphagan P 0.1% (Nf)) 1 drop BOTH EYES BID [facility] Last Admin: 11/14/16 10:35 Dose: 1 drop Docusate Sodium (Colace Cap*) 100 mg PO BID PRN PRN Reason: CONSTIPATION Last Admin: 11/11/16 09:33 Dose: 100 mg Dorzolamide HCl (Trusopt 2% Opth (Nf)) 1 drop BOTH EYES BID [facility] Last Admin: 11/14/16 10:35 Dose: 1 drop Finasteride (Proscar Tab*) 5 mg PO 1800 [facility] Last Admin: 11/13/16 17:58 Dose: 5 mg Latanoprost (Xalatan 0.005%*) 1 drop BOTH EYES BEDTIME [facility] Last Admin: 11/13/16 22:00 Dose: 1 drop Mirtazapine (Remeron Tab*) 15 mg PO BEDTIME [facility] Last Admin: 11/13/16 20:20 Dose: 15 mg Multivitamins (Theragran Tab*) 1 tab PO DAILY [facility] Last Admin: 11/14/16 10:45 Dose: 1 tab Polyethylene Glycol/Electrolytes (Miralax*) 17 gm PO DAILY PRN PRN Reason: CONSTIPATION Last Admin: 11/11/16 15:54 Dose: 17 gm Senna (Senokot Tab*) 1 tab PO BID [facility] Last Admin: 11/14/16 10:35 Dose: 1 tab Triazolam (Halcion Tab*) 0.5 mg PO BEDTIME [facility] Last Admin: 11/13/16 20:22 Dose: 0.5 mg - Discharge Plan Discharge Plan: Inpatient Hospitalization
[2016-11-14] MEDS: CMCS: Alfuzosin ER (NF) 10 MG TAB.ER PO SCH (17:51)
[2016-11-14] MEDS: Finasteride TAB* 5 MG PO SCH (17:51)
[2016-11-14] MEDS: Latanoprost 0.005%* 2.5 ml BTL BOTH EYES SCH (21:50)
[2016-11-14] MEDS: Mirtazapine TAB* 15 MG PO SCH (21:59)
[2016-11-14] MEDS: Triazolam TAB* 0.25 MG PO SCH (22:05)
--- NOTE | 2016-11-15 08:20 | PN ---
Subjective - Subjective Reason for Note: Progress Note History: He is much more calm today. He had a good night's sleep. I asked about his dyspnea/chest pressure. He tells me it is resolving and is almost better. He is encouraged about this. He is hoping to be allowed to go home tomorrow. He has no other physical symptoms at present. Current Medications: Current Medications Acetaminophen (Tylenol Tab*) 650 mg PO Q4H PRN PRN Reason: PAIN or TEMP > 101 F Al Hydrox/Mg Hydrox/Simethicone (Maalox Plus*) 30 ml PO Q4H PRN PRN Reason: INDIGESTION Alfuzosin HCl (Uroxatral (Nf)) 10 mg PO 1800 [facility] Last Admin: 11/14/16 17:51 Dose: 10 mg Brimonidine Tartrate (Alphagan P 0.1% (Nf)) 1 drop BOTH EYES BID [facility] Last Admin: 11/14/16 21:27 Dose: 1 drop Docusate Sodium (Colace Cap*) 100 mg PO BID PRN PRN Reason: CONSTIPATION Last Admin: 11/11/16 09:33 Dose: 100 mg Dorzolamide HCl (Trusopt 2% Opth (Nf)) 1 drop BOTH EYES BID [facility] Last Admin: 11/14/16 21:38 Dose: 1 drop Finasteride (Proscar Tab*) 5 mg PO 1800 [facility] Last Admin: 11/14/16 17:51 Dose: 5 mg Latanoprost (Xalatan 0.005%*) 1 drop BOTH EYES BEDTIME [facility] Last Admin: 11/14/16 21:50 Dose: 1 drop Mirtazapine (Remeron Tab*) 15 mg PO BEDTIME [facility] Last Admin: 11/14/16 21:59 Dose: 15 mg Multivitamins (Theragran Tab*) 1 tab PO DAILY [facility] Last Admin: 11/14/16 10:45 Dose: 1 tab Polyethylene Glycol/Electrolytes (Miralax*) 17 gm PO DAILY PRN PRN Reason: CONSTIPATION Last Admin: 11/11/16 15:54 Dose: 17 gm Senna (Senokot Tab*) 1 tab PO BID [facility] Last Admin: 11/14/16 21:59 Dose: 1 tab Triazolam (Halcion Tab*) 0.5 mg PO BEDTIME [facility] Last Admin: 11/14/16 22:05 Dose: 0.5 mg Home Medications: Home Medications Medication Instructions Recorded Confirmed Type Dorzolamide 2% OPTH (NF) [Trusopt 1 drop BOTH EYES BID 01/19/16 11/09/16 History 2% OPTH (NF)] Finasteride [Proscar] 5 mg PO DAILY 01/19/16 11/09/16 History Latanoprost 0.005% OPTH (NF) 1 drop BOTH EYES BEDTIME 01/19/16 11/09/16 History [Xalatan 0.005% OPTH*] Alfuzosin HCl [Alfuzosin HCl ER] 10 mg PO QPM 06/25/16 11/09/16 History Brimonidine P 0.1%(NF) [Alphagan P 1 drop BOTH EYES BID 06/25/16 11/09/16 History 0.1% (NF)] Triazolam TAB* [Halcion TAB*] 2 tab PO BEDTIME 06/25/16 11/09/16 History Acetaminophen TAB* [Tylenol TAB*] 650 mg PO Q4HR PRN 11/03/16 11/09/16 History Allergies: Allergies Allergy/AdvReac Type Severity Reaction Status Date / Time No Known Allergies Allergy Verified 11/09/16 09:23 Objective - Vital Signs Vital Signs: Vital Signs 11/14/16 11:00 Respiratory 16 Rate - Intake and Output Intake and Output: Intake & Output 11/12/16 11/13/16 11/14/16 11/15/16 11:59 11:59 11:59 11:59 Weight 124 lb ADLs: Meal Record Start: 11/08/16 20: 06 Freq: Status: Active Created 11/08/16 20:06 System (Rec: 11/08/16 20:06 System [id number]) Assessment - Problem List Assessment: Patient Problems Acute dyspnea (Acute) Anxiety disorder (Acute) Chest pressure (Acute) Depression (Acute) History of orthopnea (Acute) Suicide and self-inflicted injury (Acute) Anorexia (Chronic) Atrial fibrillation (Chronic) BPH (benign prostatic hypertrophy) (Chronic) Glaucoma (Chronic) Irritable bowel disease (Chronic) Pacemaker (Chronic) Weight loss (Chronic) Plan: Chest pressure/dyspnea: He states these symptoms are improving. He is much more calm and no longer asking me to plan his discharge, though he states he thinks this will be tomorrow (I have no idea if this is a reality-based claim). He has no other new physical complaints. I once again discussed the likelihood that his somatic symptoms are manifestations of his deep depression and that it is the nature of his illness that he cannot distinguish the physical and the psychological. The possibility remains that there may be an early fronto-temporal dementia. I called Anelmelania Morris (Dorothy) and discussed Los's physical and mental state. She feels that a good plan is being put in place for his discharge - particularly a therapist at [facility]. I will see him in my office early after discharge. I would appreciate some indication about how to adjust his psychopharmacology after discharge (if this is soon) - i.e. what is the goal dose for mirtazapine.
[2016-11-15] MEDS: DORZOLAMIDE 2% BOTH EYES SCH ×2 (10:01→21:30)
[2016-11-15] MEDS: Senna TAB PO SCH ×2 (10:01→21:31)
[2016-11-15] MEDS: BRIMONIDINE P 0.1% BOTH EYES SCH ×2 (10:01→21:31)
[2016-11-15] MEDS: Vitamin THERAPEUTIC TAB PO SCH (10:01)
--- NOTE | 2016-11-15 14:15 | PN ---
Subjective - Subjective Service Type: 56701 Hosp care 15 min low complexity Subjective: The patient has continued to display a brighter affect on the unit today. He is somewhat somatic, complaining of some stomach discomfort, and does report a large bowel movement this afternoon after taking his senna. The patient continues to deny SI and displays more future orientation of late, talking about returning to his office at [employer] and volunteering for the [employer]. Objective - Appearance Appearance: Thin Framed Dysmorphic Features: No Hygiene: Normal Grooming: Fairly Well Kept - Behavior Psychomotor Activities: Abnormal-Decreased Exhibits Abnormal Movement: No - Attitude and Relatedness Attitude and Relatedness: Cooperative Eye Contact: Fair - Speech Quality: Unpressured Latencies: Normal Quantity: Appropriate - Mood Patient's Decription of Mood: "Fine" - Affect Observed Affect: Fair Affect Consistent with: Dysphoria - Thought Process Patient's Thought Process: Coherent Thought Content: No Passive Wish, No Suicidal Planning, No Homicidal Ideation, No Paranoid Ideation - Sensorium Experiencing Hallucinations: No, Sensorium is Clear Type of Hallucinations: Visual: No, Auditory: No, Command: No - Level of Consciousness Level of Consciousness: Alert Orientation: Yes Intact, Yes Orientated to Time, Yes Orientated to Place, Yes Orientated to Person - Impulse Control Impulse Control: Poor - Insight and Judgement Insight and Judgement: Impaired - Group Participation Particating in Group Activities: Yes - Medication Management Medication Management Adherence: Yes Assessment - Assessment Merits Inpatient Hospitalization: For Immediate Safety, For Stabilization Inpatient DSM-IV Dx: Depressive disorder. r.o. Cognitive disorder NOS Clinical Impression: 81 y.o. 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 He remains depressed with numerous neurovegetative symptoms. Plan - Plan Treatment Plan: Name: ELMA HALLMAN Birthdate: 1935 [id number] The patient is tolerating mirtazapine 15mg PO qhs well. He is encouraged to attend groups and eat meals appropriately. Will continue inpatient treatment. Continued Medication Management: Start Medication Medications: Current Medications Acetaminophen (Tylenol Tab*) 650 mg PO Q4H PRN PRN Reason: PAIN or TEMP > 101 F Al Hydrox/Mg Hydrox/Simethicone (Maalox Plus*) 30 ml PO Q4H PRN PRN Reason: INDIGESTION Alfuzosin HCl (Uroxatral (Nf)) 10 mg PO 1800 [facility] Last Admin: 11/14/16 17:51 Dose: 10 mg Brimonidine Tartrate (Alphagan P 0.1% (Nf)) 1 drop BOTH EYES BID [facility] Last Admin: 11/15/16 10:01 Dose: 1 drop Docusate Sodium (Colace Cap*) 100 mg PO BID PRN PRN Reason: CONSTIPATION Last Admin: 11/11/16 09:33 Dose: 100 mg Dorzolamide HCl (Trusopt 2% Opth (Nf)) 1 drop BOTH EYES BID [facility] Last Admin: 11/15/16 10:01 Dose: 1 drop Finasteride (Proscar Tab*) 5 mg PO 1800 [facility] Last Admin: 11/14/16 17:51 Dose: 5 mg Latanoprost (Xalatan 0.005%*) 1 drop BOTH EYES BEDTIME [facility] Last Admin: 11/14/16 21:50 Dose: 1 drop Mirtazapine (Remeron Tab*) 15 mg PO BEDTIME [facility] Last Admin: 11/14/16 21:59 Dose: 15 mg Multivitamins (Theragran Tab*) 1 tab PO DAILY [facility] Last Admin: 11/15/16 10:01 Dose: 1 tab Polyethylene Glycol/Electrolytes (Miralax*) 17 gm PO DAILY PRN PRN Reason: CONSTIPATION Last Admin: 11/11/16 15:54 Dose: 17 gm Senna (Senokot Tab*) 1 tab PO BID [facility] Last Admin: 11/15/16 10:01 Dose: 1 tab Triazolam (Halcion Tab*) 0.5 mg PO BEDTIME [facility] Last Admin: 11/14/16 22:05 Dose: 0.5 mg - Discharge Plan Discharge Plan: Inpatient Hospitalization
[2016-11-15] MEDS: Finasteride TAB* 5 MG PO SCH (18:21)
[2016-11-15] MEDS: CMCS: Alfuzosin ER (NF) 10 MG TAB.ER PO SCH (18:21)
[2016-11-15] MEDS: Mirtazapine TAB* 15 MG PO SCH (21:30)
[2016-11-15] MEDS: Latanoprost 0.005%* 2.5 ml BTL BOTH EYES SCH (21:31)
[2016-11-15] MEDS: Triazolam TAB* 0.25 MG PO SCH (21:32)
[2016-11-16] MEDS: Vitamin THERAPEUTIC TAB PO SCH (09:28)
[2016-11-16] MEDS: Senna TAB PO SCH ×2 (09:28→20:53)
[2016-11-16] MEDS: BRIMONIDINE P 0.1% BOTH EYES SCH ×2 (10:04→20:43)
[2016-11-16] MEDS: DORZOLAMIDE 2% BOTH EYES SCH ×2 (10:04→20:45)
--- NOTE | 2016-11-16 13:46 | PN ---
Subjective - Subjective Service Type: 25897 Hosp care 25 min moderate complexity Subjective: Today I meet with Los, along with his Keeley. She concurs with the staff 's recent perception that Los appears less irritable and more future-oriented of late and it is her further sense that he is improving. This is seconded by Dr. Raymond, with whom I spoke late yesterday on the phone. The patient's affect is much more full and there is no evidence of the stubbornness or irritability he displayed earlier in his treatment course. His wrist injuries are healing well and his sutures are removed by this clinician. He denies SI. Objective - Appearance Appearance: Thin Framed Dysmorphic Features: No Hygiene: Normal Grooming: Well Kept - Behavior Psychomotor Activities: Abnormal-Decreased Exhibits Abnormal Movement: No - Attitude and Relatedness Attitude and Relatedness: Cooperative Eye Contact: Good - Speech Quality: Unpressured Latencies: Normal Quantity: Appropriate - Mood Patient's Decription of Mood: "Okay" - Affect Observed Affect: Fair Affect Consistent with: Euthymia - Thought Process Patient's Thought Process: Coherent Thought Content: No Passive Wish, No Suicidal Planning, No Homicidal Ideation, No Paranoid Ideation - Sensorium Experiencing Hallucinations: No, Sensorium is Clear Type of Hallucinations: Visual: No, Auditory: No, Command: No - Level of Consciousness Level of Consciousness: Alert Orientation: Yes Intact, Yes Orientated to Time, Yes Orientated to Place, Yes Orientated to Person - Impulse Control Impulse Control: Tenuous - Insight and Judgement Insight and Judgement: Fair - Group Participation Particating in Group Activities: No - Medication Management Medication Management Adherence: Yes Assessment - Assessment Merits Inpatient Hospitalization: Consolid[facility] Improvements, Pending Safe DC Plan Inpatient DSM-IV Dx: Depressive disorder. r.o. Cognitive disorder NOS Clinical Impression: 81 y.o. 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 He remains depressed with numerous neurovegetative symptoms. Plan - Plan Treatment Plan: Name: LOS HALLMAN Birthdate: 1935 [id number] The patient is tolerating mirtazapine 15mg PO qhs well. He is encouraged to attend groups and eat meals appropriately. Will target November 19 for d/c to home. Continued Medication Management: Start Medication Medications: Current Medications Acetaminophen (Tylenol Tab*) 650 mg PO Q4H PRN PRN Reason: PAIN or TEMP > 101 F Al Hydrox/Mg Hydrox/Simethicone (Maalox Plus*) 30 ml PO Q4H PRN PRN Reason: INDIGESTION Alfuzosin HCl (Uroxatral (Nf)) 10 mg PO 1800 [facility] Last Admin: 11/15/16 18:21 Dose: 10 mg Brimonidine Tartrate (Alphagan P 0.1% (Nf)) 1 drop BOTH EYES BID [facility] Last Admin: 11/16/16 10:04 Dose: 1 drop Docusate Sodium (Colace Cap*) 100 mg PO BID PRN PRN Reason: CONSTIPATION Last Admin: 11/11/16 09:33 Dose: 100 mg Dorzolamide HCl (Trusopt 2% Opth (Nf)) 1 drop BOTH EYES BID [facility] Last Admin: 11/16/16 10:04 Dose: 1 drop Finasteride (Proscar Tab*) 5 mg PO 1800 [facility] Last Admin: 11/15/16 18:21 Dose: 5 mg Latanoprost (Xalatan 0.005%*) 1 drop BOTH EYES BEDTIME [facility] Last Admin: 11/15/16 21:31 Dose: 1 drop Mirtazapine (Remeron Tab*) 15 mg PO BEDTIME [facility] Last Admin: 11/15/16 21:30 Dose: 15 mg Multivitamins (Theragran Tab*) 1 tab PO DAILY [facility] Last Admin: 11/16/16 09:28 Dose: 1 tab Polyethylene Glycol/Electrolytes (Miralax*) 17 gm PO DAILY PRN PRN Reason: CONSTIPATION Last Admin: 11/11/16 15:54 Dose: 17 gm Senna (Senokot Tab*) 1 tab PO BID [facility] Last Admin: 11/16/16 09:28 Dose: 1 tab Triazolam (Halcion Tab*) 0.5 mg PO BEDTIME [facility] Last Admin: 11/15/16 21:32 Dose: 0.5 mg - Discharge Plan Discharge Plan: Outpatient Follow Up Out[facility]
[2016-11-16] MEDS: CMCS: Alfuzosin ER (NF) 10 MG TAB.ER PO SCH (17:52)
[2016-11-16] MEDS: Finasteride TAB* 5 MG PO SCH (17:52)
[2016-11-16] MEDS: Latanoprost 0.005%* 2.5 ml BTL BOTH EYES SCH (20:44)
[2016-11-16] MEDS: Triazolam TAB* 0.25 MG PO SCH (20:53)
[2016-11-16] MEDS: Mirtazapine TAB* 15 MG PO SCH (20:53)
[2016-11-17] MEDS: Vitamin THERAPEUTIC TAB PO SCH (09:50)
[2016-11-17] MEDS: Senna TAB PO SCH ×2 (09:50→21:34)
[2016-11-17] MEDS: DORZOLAMIDE 2% BOTH EYES SCH ×2 (10:00→20:52)
[2016-11-17] MEDS: BRIMONIDINE P 0.1% BOTH EYES SCH ×2 (10:00→20:52)
[2016-11-17] MEDS: CMCS: Alfuzosin ER (NF) 10 MG TAB.ER PO SCH (17:50)
[2016-11-17] MEDS: Finasteride TAB* 5 MG PO SCH (17:51)
[2016-11-17] MEDS: Latanoprost 0.005%* 2.5 ml BTL BOTH EYES SCH (20:52)
[2016-11-17] MEDS: Mirtazapine TAB* 15 MG PO SCH (21:34)
[2016-11-17] MEDS: Triazolam TAB* 0.25 MG PO SCH (21:35)
[2016-11-18] MEDS: Vitamin THERAPEUTIC TAB PO SCH (09:09)
[2016-11-18] MEDS: Senna TAB PO SCH ×2 (09:09→21:19)
[2016-11-18] MEDS: DORZOLAMIDE 2% BOTH EYES SCH ×2 (10:30→20:45)
[2016-11-18] MEDS: BRIMONIDINE P 0.1% BOTH EYES SCH ×2 (10:31→20:45)
[2016-11-18] MEDS: Finasteride TAB* 5 MG PO SCH (17:38)
[2016-11-18] MEDS: CMCS: Alfuzosin ER (NF) 10 MG TAB.ER PO SCH (17:38)
[2016-11-18] MEDS: Latanoprost 0.005%* 2.5 ml BTL BOTH EYES SCH (20:45)
[2016-11-18] MEDS: Triazolam TAB* 0.25 MG PO SCH (21:19)
[2016-11-18] MEDS: Mirtazapine TAB* 15 MG PO SCH (21:19)
[2016-11-19] MEDS: Vitamin THERAPEUTIC TAB PO SCH (09:17)
[2016-11-19] MEDS: Senna TAB PO SCH ×2 (09:17→09:40)
[2016-11-19] MEDS: BRIMONIDINE P 0.1% BOTH EYES SCH (09:17)
[2016-11-19] MEDS: DORZOLAMIDE 2% BOTH EYES SCH (09:18)
[2016-11-19 10:02] VITALS: BP 142/78
--- NOTE | 2016-11-19 23:12 | DS ---
DISCHARGE SUMMARY: DATE OF ADMISSION: 11/08/16 DATE OF DISCHARGE: 11/19/16 DISCHARGE DIAGNOSES: As follows: [place] I: Major depressive disorder single episode, severe with psychotic features. Unspecified anxiety disorder by history. [place] II: Deferred. [place] III: Paroxysmal atrial fibrillation, benign prostatic hypertrophy, glaucoma, irritable bowel syndrome. Recent history of pneumonia. Pacemaker insertion in June 2016. Bilateral knee surgeries 10 years ago. [place] IV: Moderate primary support stressors. [place] V: At the time of admission was 34 and at the time of discharge is 59. CONDITION AT THE TIME OF DISCHARGE: Stable. The patient is calm and cooperative. He is much less irritable and much more friendly compared to admission. 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 The patient's acute issue, which in his mind causes suicidality, which was his chest pain and difficulty breathing had both markedly subsided. The patient is agreeable with outpatient followup in the community and his who is coming to pick him up to take him home is very much in agreement with the discharge plan. MENTAL STATUS EXAM: At the time of discharge, the patient is an aging white male, who is dressed in a blue sweatshirt and kumar sweatpants. His posture is comfortable as he is sitting up in bed with his head elevated. Speech has normal rate, tone, and volume. He has good eye contact. Speech is slow, but quite articulate and he has an excellent vocabulary. It is easy to establish a rapport with him. Mood is euthymic with a full affect. Thought process is linear and goal directed. Thought content is significant for his desire to leave the hospital to return to be home with his family. He is denying suicidal or homicidal ideations. He denies auditory or visual hallucinations. Insight and judgement appear to be fair given his willingness to follow up with close mental health followup in the community following discharge and cognitively he is awake and alert with what is obviously an above average intellect. DISCHARGE INSTRUCTIONS: To the patient are as follows: A. Medications: He is on: 1. Triazolam 0.5 mg p.o. q.h.s. 2. Brimonidine 0.1% 1 drop bilaterally for glaucoma. 3. Dorzolamide 2% ophthalmic solution 1 drop bilaterally b.i.d. 4. Proscar 5 mg p.o. daily. 5. Alfuzosin ER 10 mg p.o. daily. 6. Xalatan 0.005% 1 drop to both eyes at bedtime. 7. Colace 100 mg p.o. b.i.d. 8. MiraLAX 17 g p.r.n. daily for constipation. 9. Mirtazapine 15 mg p.o. q.h.s. B. Diet: Regular. C. Activity: As tolerated. The patient is a nonsmoker. D. Followup care: The patient is to be seen for a psychiatric intake at the [facility]. His appointment is set for tomorrow, which is 11/20/16. His antidepressant prescribing will continue to be done by his family practice doctor who is Kishan Raymond. 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 Apparently, the patient's found him in their bedroom discovering blood throughout their room as well as the bathroom and she immediately contacted emergency services. The patient's justification for this action is that he feels pessimistic about his probability of leading a pain-free life. Apparently, he was hospitalized at this facility for pneumonia in early September 2016 and from there briefly went to a nursing rehab facility before returning home. Since then, he has complained consistently of constant pressure in his chest, which prevents him from lying flat or catching his breath if he is standing or ambulating. The patient indicates that he had met with both Pulmonology as well as Cardiology and his impression from these evaluations was that his condition was not likely to improve. He was quoted as saying " if you have something that's wrecking your life and there is nothing that you can do to improve it, suicide is a rational action." The patient showed several signs of cognitive distortions in that he attributes his bleak medical situation to a prognosis that he received from multiple clinicians, including during his brief medical hospitalization, more specifically, he was stating that one of the attendings that rounded on him over the weekend had told him that it was true that his condition was unlikely to improve. I understood from Dr. Kishan Raymond, who was the patient's family practitioner and current medical attending that this was not necessarily the case and that the medical diagnostic workup had indicated no physiological findings that would explain his chest discomfort. Furthermore, it was the belief of the medical team that the patient's dyspnea was likely psychosomatic and attributable to his underlying depression. The thought of the medical treatment staff is that his depression were to improve, that his pain would be reduced and his overall quality of life would markedly improve. On exam, the patient was a thin and somewhat frail, aging white male lying in bed with his head slightly raised. He was cantankerous and irritable. He continued to endorse a pessimistic outlook on his life prospects and in addition to a depressed mood, he endorsed difficulty sleeping, anhedonia, guilt, decreased energy, poor concentration, lack of appetite, psychomotor retardation and feelings that his situation led him to believe that was preferable. Part B. Psychiatric treatment rendered: The patient was admitted to the Adult Behavioral Health Unit where he was placed initially on q.15 minute checks for his own safety, although as he improved, this was decreased to q.30 minute checks. We continued the 7.5 mg of mirtazapine that had been started on a nightly basis by the psychiatric consult service and in fact did increase this to the more therapeutic dose of 15 mg p.o. q.h.s. The patient was irritable and in disagreement with this hospitalization, although he was willing to sign voluntary paperwork. He was often very disagreeable to staff members and peers with whom he came into contact on the unit and he was reluctant to partake in group programming. We did have a meeting with his on at least 3 different occasions with this clinician. At the first meeting, the patient was confronted with his suicidal behavior prior to admission and he was similarly confronted on his rude behavior towards others. He did make an agreement at that time to work on his behavior and around that time we started noticing dramatic change in his affect. He became more participatory in milieu activities, started leaving his room, getting up and ambulating more. He was less constricted in terms of his affect and would actually brighten on approach. We also noticed that he started talking spontaneously about things that he enjoys in his life such as volunteering for the [employer] and visiting his office and communicating with former students. Followup meetings with his revealed that she too noticed that he was improving. He did tolerate his antidepressant well and denied any untoward effects from this. He did have constipation towards the beginning of the hospitalization, which was successfully treated with a combination of Colace and senna. Because he had normal bowel movements and was starting to get slightly nauseous, we did discontinue the senna at the time of discharge. At this time, the patient is future oriented and he denies any thoughts whatsoever of ending his life and admits at this point that it was foolish for him to have attempted this prior to admission. He is appropriately apologetic to his and indicates that he is willing to seek therapy in the community as well as stay on an antidepressant to avoid becoming depressed again. [id number]/CPS #: [id number] MTDD
== END 2016-11-19 14:00 | disposition home or self-care (01) | DRG 885 ==
LOC: BSU 19:01
PROVIDERS: ADMIT Psychiatry & Neurology Psychiatry; ATTEND Psychiatry & Neurology Psychiatry
PROC: GZHZZZZ Group Psychotherapy (ICD-10-PCS; principal; 2016-11-13)
PROC: GZ58ZZZ Individual Psychotherapy, Cognitive-Behavioral (ICD-10-PCS; 2016-11-13)
DX: F32.3 Major depressive disorder, single episode, severe with psychotic features (principal); I48.0 Paroxysmal atrial fibrillation; R63.0 Anorexia; F41.9 Anxiety disorder, unspecified; N40.0 Benign prostatic hyperplasia without lower urinary tract symptoms; H40.9 Unspecified glaucoma; K58.9 Irritable bowel syndrome, unspecified; R63.4 Abnormal weight loss; F09 Unspecified mental disorder due to known physiological condition; Z68.21 Body mass index [BMI] 21.0-21.9, adult; Z87.01 Personal history of pneumonia (recurrent); Z95.0 Presence of cardiac pacemaker; Z63.9 Problem related to primary support group, unspecified
CPT/HCPCS: 90847; 90853; 99222; 99231; 99232; 99238; A9270-GY

== ENCOUNTER 2017-05-07 13:51 | Emergency (ER) | payer MEDICARE, OTHER ==
--- NOTE | 2017-05-07 14:58 | UC ---
Falguni Tomlin Alok, scribed for Valery Fields MD on 05/07/17 at 1447 . Dizzy HPI HPI Summary: 82 Male presents to [facility] accompanied by his for a sudden onset of dizziness at 1320 while in his home. Pt states that while doing the dishes at 1320 feeling a room-spinning sensation which lasted for 10-15 minutes until he was able to lay down on the couch. Pt denies nausea. No fall or direct trauma. Pt states he was unaware of his head position during onset of dizziness and states episode was unwitnessed (unclear if head flexed looking into sink or neutral looking outside. pt used a wall to aide himself to a couch. Pt also notes tachypnea during his episode of dizziness. Pt denies changes in his dizziness caused by closing his eyes. Pt denies CP, SOB, nausea, TERAN, vison changes, extremity numbness/tingling or weakness. No recent illness,. no medication changes. Pt has a pacemaker for bradycardia. 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 PSHx includes bilateral knee replacement and resolved herniated disc. Pt denies h/o CT or CVA. Pt denies anti-coagulant medications. Pt denies ETOH/tobacco. Pt has NKDA. Patient medications reviewed this visit. - History Of Current Complaint Chief Complaint: UCDizziness Stated Complaint: DIZZINESS Time Seen by Provider: 05/07/17 14:36 Hx Obtained From: Patient Onset/Duration: Sudden Onset, Lasting Minutes, Resolved Timing: Minutes Severity Initially: Moderate Severity Currently: Moderate Pain Intensity: 0 Pain Scale Used: 0-10 Numeric Character: Room Spinning Aggravating Factor(s): Nothing Alleviating Factor(s): Lying Down Associated Signs And Symptoms: Negative: Nausea, Chest Pain, SOB - Allergies/Home Medications Allergies/Adverse Reactions: Allergies Allergy/AdvReac Type Severity Reaction Status Date / Time No Known Allergies Allergy Verified 05/07/17 14:15 Home Medications: Home Medications Mirtazapine [Remeron] 1 tab PO BEDTIME 05/07/17 [History Confirmed 05/07/17] Multiple Vitamins W/ Minerals [Centrum Silver 50+Men] 1 tab PO DAILY 05/07/17 [ History Confirmed 05/07/17] PMH/Surg Hx/FS Hx/Imm Hx Previously Healthy: Yes Cardiovascular History: Pacemaker/ICD Respiratory History: Pneumonia Other GI/ History: BPH - Surgical History Surgical History: Yes Surgery Procedure, Year, and Place: Appendectomy, Bilat. Knee Replacement; Bilateral Arthroscopy - Family History Known Family History: Negative: Cardiac Disease, Hypertension, Diabetes - Social History Occupation: Retired Lives: With Family Alcohol Use: None Substance Use Type: None Smoking Status (MU): Never Smoked Tobacco - Immunization History Most Recent Influenza Vaccination: 2016 Most Recent Tetanus Shot: 2005 Most Recent Pneumonia Vaccination: 2000 Review of Systems Constitutional: Negative Skin: Negative Eyes: Negative ENT: Negative Respiratory: Other - Tachypnea - resolved Cardiovascular: Negative Gastrointestinal: Negative Genitourinary: Negative Motor: Negative Neurovascular: Negative Musculoskeletal: Negative Neurological: Other - Dizziness Psychological: Negative All Other Systems Reviewed And Are Negative: Yes Physical Exam Triage Information Reviewed: Yes Completion Of Physical Exam Limited Due To: Altered Mental Status Appearance: Well-Appearing, No Pain Distress, Well-Nourished Vital Signs: Initial Vital Signs Temp 97.3 F 05/07/17 14:08 Pulse 61 05/07/17 14:08 Resp 16 05/07/17 14:08 BP 142/80 05/07/17 14:08 Pulse Ox 99 05/07/17 14:08 Vital Signs Reviewed: Yes Eye Exam: Normal Eyes: Positive: Conjunctiva Clear, Other: - no photophobia, no nystagmus ENT: Positive: Normal ENT inspection, Nasal drainage, TMs normal Dental Exam: Normal Neck exam: Normal Neck: Positive: Supple, Nontender, No Lymphadenopathy Respiratory Exam: Normal Respiratory: Positive: Chest non-tender, Lungs clear, Normal breath sounds, No respiratory distress Cardiovascular Exam: Normal Cardiovascular: Positive: RRR, No Murmur, Pulses Normal, Other: - no bruits b/l Abdominal Exam: Normal Abdomen Description: Positive: Nontender, No Organomegaly, Soft Bowel Sounds: Positive: Present Musculoskeletal Exam: Normal Musculoskeletal: Positive: Strength Intact, ROM Intact, No Edema Neurological Exam: Normal Neurological: Positive: Alert, Muscle Tone Normal, Other: - CN 2-12 intact and full Psychological Exam: Normal Skin Exam: Normal Diagnostics - EKG Cardiac Rate: Other Rate - Atrial paced 64 bpm Cardiac Rhythm: AFib: Normal - TIME: 1357 ST Segment: Normal Dizzy Course/Dx - Course Course Of Treatment: Blood pressure noted and patient informed to follow up with PCP. Pt with a 15 min episode of profound dizziness at 1320 today. Symtoms resolved and have not returned. Pt without current complaints. Non concerning exam. d/w pt differential including cardiac event, TIA. recommend transfer to ED. Pt in agreement by EMS. Will place IV, FSBG - Differential Dx/Diagnosis Provider Diagnoses: episode of dizziness - Physician Notifications Discussed Patient Care With: Jennifer Gambino - Made aware of pt transfer from [facility] to ED by EMS Time Discussed With Above Provider: 15:03 Discharge - Discharge Plan Condition: Stable Disposition: TRANS HIGHER LVL OF CARE FAC The documentation as recorded by the Falguni gracia Alok accurately reflects the service I personally performed and the decisions made by , Valery Fields MD.
[2017-05-07 15:17] VITALS: BP 132/74
== END 2017-05-07 15:25 | disposition short-term general hospital (02) ==
LOC: UCEAST 13:51
DX: R42 Dizziness and giddiness (principal); Z95.0 Presence of cardiac pacemaker; R00.1 Bradycardia, unspecified
CPT/HCPCS: 93005; 99213; G0463

== ENCOUNTER 2017-05-07 15:46 | Emergency (ER) | payer MEDICARE, OTHER ==
[2017-05-07] MEDS ORDERED: NS 0.9% 1000 ML* 1,000 ML IV SCH (17:00)
[2017-05-07 17:44] LABS: Hematocrit 45 % (42-52); Mean Corpuscular HGB Conc 33 g/dl (31-36); Mean Corpuscular Hemoglobin 30 pg (27-31); Mean Corpuscular Volume 92 fL (80-94); Mean Platelet Volume 8 um3 (7.4-10.4); Red Blood Count 4.95 10^6/ul (4.0-5.4); Red Cell Distribution Width 16 % (10.5-15); White Blood Count 6.7 10^3/ul (3.5-10.8)
[2017-05-07 18:01] LABS: C Reactive Protein 1.67 mg/L (< 5.00); Lipase 42 U/L (11.0-82.0)
[2017-05-07 18:03] LABS: Troponin I 0.01 ng/mL (<0.04)
--- NOTE | 2017-05-07 18:07 | RAD ---
Indication: Dizziness. Near-syncope. Comparison: September 11, 2016 CT. Technique: Noncontrast CT vertex of skull through foramen magnum. Report: Unremarkable cerebral sulci, ventricles and basal cisterns for age. Negative for kumar matter white matter obscuration, intra or extra-axial hemorrhage, or mass effect. 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 Negative for hyperdense MCA sign. Atherosclerotic calcification at the vertebral arteries and RIGHT intracranial internal carotid artery noted. Unremarkable orbital contents. No suspicious calvarial or skull base lesion evident. Clear paranasal sinuses and mastoid air spaces. Negative for scalp hematoma. IMPRESSION: 1. No acute intracranial process evident. 2. 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
[2017-05-07 18:10] LABS: TSH (Thyroid Stimulating Horm) 2.39 mcIU/mL (0.34-5.60)
[2017-05-07 18:11] LABS: Urine Bilirubin Negative (Negative); Urine Glucose Negative (Negative); Urine Nitrite Negative (Negative)
[2017-05-07 19:07] LABS: Magnesium 1.8 mg/dL (1.9-2.7)
[2017-05-07 19:07] LABS: ALT 12 U/L (7-52); Albumin 3.9 g/dL (3.2-5.2); Alkaline Phosphatase 42 U/L (34-104); BUN/Creatinine Ratio 25.9 (8-20); Blood Urea Nitrogen 22 mg/dL (6-24); CO2 Carbon Dioxide 23 mmol/L (22-32); Calcium 8.9 mg/dL (8.6-10.3); Chloride 107 mmol/L (101-111); EGFR African American 110.7 (>60); EGFR Non-African American 86.1 (>60); Glucose 116 mg/dL (70-100); Sodium 136 mmol/L (133-145); Total Protein 6.9 g/dL (6.4-8.9)
[2017-05-07 19:08] LABS: Anion Gap 6 mmol/L (2-11)
[2017-05-07 20:20] VITALS: BP 133/66
--- NOTE | 2017-05-07 20:28 | ED ---
Jonathan Tomlin Benjamin, scribed for Cecilio Soto MD on 05/07/17 at 1629 . Dizziness - HPI Summary HPI Summary: 82yo male comes to ED from after a sudden onset dizziness today around 1300. Pt describes the episode as room spinning like dizziness, with losing balance and experiencing disorientation. Dizziness resolved soon after lying down. Pt denies any URI symptoms, TERAN, ear aches, or nausea. Pt reported having Systolic pressure of 140s today at when his usual baseline is in 120s. Pt has a cane that he doesnt usually use but had to use it today after his dizzy spell. 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 Negative: Nausea - Allergies/Home Medications Allergies/Adverse Reactions: Allergies Allergy/AdvReac Type Severity Reaction Status Date / Time No Known Allergies Allergy Verified 05/07/17 14:15 PMH/Surg Hx/FS Hx/Imm Hx Endocrine/Hematology History: Denies: Hx Diabetes, Hx Thyroid Disease, Hx Anemia Cardiovascular History: Reports: Hx Angina, Hx Auto Implanted Cardiovert Defib, Hx Pacemaker/ICD, Other Cardiovascular Problems/Disorders - paroxysmal atrial fibrillation Denies: Hx Coronary Artery Disease, Hx Hypercholesterolemia, Hx Hypertension , Hx Myocardial Infarction, Hx Peripheral Vascular Disease Respiratory History: Reports: Hx Pneumonia - recent, Other Respiratory Problems/ Disorders - PNEUMONIA Denies: Hx Asthma, Hx Chronic Obstructive Pulmonary Disease (COPD) GI History: Reports: Hx Irritable Bowel Denies: Hx Jaundice History: Reports: Hx Benign Prostatic Hyperplasia Denies: Hx Renal Disease Musculoskeletal History: Reports: Hx Back Problems, Other Musculoskeletal History - Resloved Herniated Disk, Bilat Knee Replacement Denies: Hx Arthritis, Hx Osteoporosis Sensory History: Reports: Hx Contacts or Glasses Opthamlomology History: Reports: Hx Contacts or Glasses Neurological History: Reports: Other Neuro Impairments/Disorders - admitted with hyponatremia and ams Denies: Hx Headaches, Hx Seizures, Hx Transient Ischemic Attacks (TIA) - Surgical History Surgery Procedure, Year, and Place: Appendectomy, Bilat. Knee Replacement; Bilateral Arthroscopy Infectious Disease History: No Infectious Disease History: Reports: Hx Hepatitis Denies: Traveled Outside the [place] in Last 30 Days - Family History Known Family History: Negative: Cardiac Disease, Hypertension, Diabetes - Social History Occupation: Retired Lives: With Family Alcohol Use: None Substance Use Type: Reports: None Smoking Status (MU): Never Smoked Tobacco Review of Systems Constitutional: Negative Eyes: Negative ENT: Negative Cardiovascular: Negative Respiratory: Negative Gastrointestinal: Negative Genitourinary: Negative Musculoskeletal: Negative Skin: Negative Neurological: Other - dizziness Psychological: Normal All Other Systems Reviewed And Are Negative: Yes Physical Exam Triage Information Reviewed: Yes Vital Signs On Initial Exam: Initial Vitals Temp Pulse Resp BP Pulse Ox 97.6 F 63 12 136/81 98 05/07/17 15:55 05/07/17 15:55 05/07/17 15:55 05/07/17 15:55 05/07/17 15:55 Vital Signs Reviewed: Yes Appearance: Positive: Well-Appearing, No Pain Distress, Well-Nourished Skin: Positive: Warm, Skin Color Reflects Adequate Perfusion, Dry Head/Face: Positive: Normal Head/Face Inspection Eyes: Positive: EOMI, ODALYS ENT: Positive: Normal ENT inspection Neck: Positive: Supple, Nontender Respiratory/Lung Sounds: Positive: Clear to Auscultation, Breath Sounds Present Cardiovascular: Positive: RRR Abdomen Description: Positive: Nontender, Soft Bowel Sounds: Positive: Present Musculoskeletal: Positive: Normal, Strength/ROM Intact Neurological: Positive: Normal, Sensory/Motor Intact, Alert, Oriented to Person Place, Time Psychiatric: Positive: Normal, Affect/Mood Appropriate Diagnostics - Vital Signs Vital Signs Temp Pulse Resp BP Pulse Ox 05/07/17 15:55 97.6 F 63 12 136/81 98 - Laboratory Lab Results: Lab Results 05/07/17 05/07/17 05/07/17 Range/Units 15:08 15:08 15:08 WBC 6.7 (3.5-10.8) 10^3/ul RBC 4.95 (4.0-5.4) 10^6/ul Hgb 15.0 (14.0-18.0) g/dl Hct 45 (42-52) % MCV 92 (80-94) fL MCH 30 (27-31) pg MCHC 33 (31-36) g/dl RDW 16 H (10.5-15) % Plt Count 206 (150-450) 10^3/ul MPV 8 (7.4-10.4) um3 Neut % (Auto) 72.2 (38-83) % Lymph % (Auto) 17.8 L (25-47) % Dawes % (Auto) 7.9 (1-9) % Eos % (Auto) 1.3 (0-6) % Baso % (Auto) 0.8 (0-2) % Absolute Neuts (auto) 4.8 (1.5-7.7) 10^3/ul Absolute Lymphs (auto) 1.2 (1.0-4.8) 10^3/ul Absolute Monos (auto) 0.5 (0-0.8) 10^3/ul Absolute Eos (auto) 0.1 (0-0.6) 10^3/ul Absolute Basos (auto) 0.1 (0-0.2) 10^3/ul Absolute Nucleated RBC 0.01 10^3/ul Nucleated RBC % 0.1 INR (Anticoag Therapy) 0.90 (0.89-1.11) APTT 31.1 (26.0-36.3) seconds Sodium 136 (133-145) mmol/L Potassium TNP Chloride 107 (101-111) mmol/L Carbon Dioxide 23 (22-32) mmol/L Anion Gap 6 (2-11) mmol/L BUN 22 (6-24) mg/dL Creatinine 0.85 (0.67-1.17) mg/dL Est GFR ( Amer) 110.7 (>60) Est GFR (Non-Af Amer) 86.1 (>60) BUN/Creatinine Ratio 25.9 H (8-20) Glucose 116 H (70-100) mg/dL Lactic Acid (0.5-2.0) mmol/L Calcium 8.9 (8.6-10.3) mg/dL Magnesium TNP Total Bilirubin 1.10 H (0.2-1.0) mg/dL AST TNP ALT 12 (7-52) U/L Alkaline Phosphatase 42 (34-104) U/L Troponin I 0.01 (<0.04) ng/mL C-Reactive Protein 1.67 (< 5.00) mg/L Total Protein 6.9 (6.4-8.9) g/dL Albumin 3.9 (3.2-5.2) g/dL Globulin 3.0 (2-4) g/dL Albumin/Globulin Ratio 1.3 (1-3) Lipase 42 (11.0-82.0) U/L TSH 2.39 (0.34-5.60) mcIU/mL Urine Color Urine Appearance Urine pH (5-9) Ur Specific [place] (1.010-1.030) Urine Protein (Negative) Urine Ketones (Negative) Urine Blood (Negative) Urine Nitrate (Negative) Urine Bilirubin (Negative) Urine Urobilinogen (Negative) Ur Leukocyte Esterase (Negative) Urine Glucose (Negative) 05/07/17 05/07/17 05/07/17 Range/Units 17:55 18:40 19:06 WBC (3.5-10.8) 10^3/ul RBC (4.0-5.4) 10^6/ul Hgb (14.0-18.0) g/dl Hct (42-52) % MCV (80-94) fL MCH (27-31) pg MCHC (31-36) g/dl RDW (10.5-15) % Plt Count (150-450) 10^3/ul MPV (7.4-10.4) um3 Neut % (Auto) (38-83) % Lymph % (Auto) (25-47) % Dawes % (Auto) (1-9) % Eos % (Auto) (0-6) % Baso % (Auto) (0-2) % Absolute Neuts (auto) (1.5-7.7) 10^3/ul Absolute Lymphs (auto) (1.0-4.8) 10^3/ul Absolute Monos (auto) (0-0.8) 10^3/ul Absolute Eos (auto) (0-0.6) 10^3/ul Absolute Basos (auto) (0-0.2) 10^3/ul Absolute Nucleated RBC 10^3/ul Nucleated RBC % INR (Anticoag Therapy) (0.89-1.11) APTT (26.0-36.3) seconds Sodium (133-145) mmol/L Potassium 4.1 Chloride (101-111) mmol/L Carbon Dioxide (22-32) mmol/L Anion Gap (2-11) mmol/L BUN (6-24) mg/dL Creatinine (0.67-1.17) mg/dL Est GFR ( Amer) (>60) Est GFR (Non-Af Amer) (>60) BUN/Creatinine Ratio (8-20) Glucose (70-100) mg/dL Lactic Acid 1.3 (0.5-2.0) mmol/L Calcium (8.6-10.3) mg/dL Magnesium 1.8 L Total Bilirubin (0.2-1.0) mg/dL AST 17 ALT (7-52) U/L Alkaline Phosphatase (34-104) U/L Troponin I (<0.04) ng/mL C-Reactive Protein (< 5.00) mg/L Total Protein (6.4-8.9) g/dL Albumin (3.2-5.2) g/dL Globulin (2-4) g/dL Albumin/Globulin Ratio (1-3) Lipase (11.0-82.0) U/L TSH (0.34-5.60) mcIU/mL Urine Color Yellow Urine Appearance Clear Urine pH 6.0 (5-9) Ur Specific [place] 1.019 (1.010-1.030) Urine Protein Negative (Negative) Urine Ketones Negative (Negative) Urine Blood Negative (Negative) Urine Nitrate Negative (Negative) Urine Bilirubin Negative (Negative) Urine Urobilinogen Negative (Negative) Ur Leukocyte Esterase Negative (Negative) Urine Glucose Negative (Negative) Result Diagrams: 05/07/17 15:08 05/07/17 18:40 Lab Statement: Any lab studies that have been ordered have been reviewed, and results considered in the medical decision making process. - CT CT brain CT Interpretation: No Acute Changes - IMPRESSION: 1. No acute intracranial process evident. 2. 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 CT Interpretation Completed By: Radiologist - EKG 1707 Cardiac Rate: NL - 60bpm ST Segment: Normal Ectopy: PVCs Dizzy Course/Dx - Course Course Of Treatment: Discussed to Dr. Gilliam (neuro) at 2018. NO CRITICAL CARE TIME. PATIENT ASYMPTOMATIC IN ED. WALKED WITHOUT ANY SX. WISHES TO GO HOME. DISCUSSED WITH DR GILLIAM; CONSIDER CTA HEAD AND NECK AND BEING ON AN ASA QD. WITH PATIENT BEING ASYMPTOMATIC IN ED, DID NOT DO CTA AT THIS TIME. PATIENT WILL F/U WITH PMD; RETURN IF WORSE. - Diagnoses Provider Diagnoses: Dizziness Discharge - Discharge Plan Condition: Stable Disposition: HOME Patient Education Materials: Dizziness (ED) Referrals: Kishan Raymond MD [Primary Care Provider] - Additional Instructions: FOLLOW UP WITH YOUR DOCTOR. RETURN TO THE EMERGENCY DEPARTMENT FOR ANY WORSENING OF YOUR CONDITION; WEAKNESS , NUMBNESS, YOU FEEL ILL OR QUESTIONS OR CONCERNS. The documentation as recorded by the Jonathan gracia Benjamin accurately reflects the service I personally performed and the decisions made by me, Cecilio Soto MD.
== END 2017-05-07 20:20 | disposition home or self-care (01) ==
LOC: ED 15:46
DX: R42 Dizziness and giddiness (principal)
CPT/HCPCS: 36415; 70450; 80053; 81003; 83605; 83690; 83735; 84443; 84484; 85025; 85610; 85730; 86140; 93005; 99282

== ENCOUNTER 2018-02-17 14:24 | Emergency (ER) | payer MEDICARE, OTHER ==
[2018-02-17 14:49] VITALS: BP 125/91
--- NOTE | 2018-02-17 15:27 | UC ---
Head Injury HPI - HPI Summary HPI Summary: 82 yo male was curling 3 days ago slipped and struck his occiput no LOC no neck pain states his current TERAN is 0/10 no n/v no photo or phonophobia no vertigo no trouble concentrating States he came here because he channel manager told him he should get checked out - History Of Current Complaint Chief Complaint: UCHeadInjury Stated Complaint: HEAD INJURY Time Seen by Provider: 02/17/18 15:11 Hx Obtained From: Patient Onset/Duration: Sudden Onset Severity Currently: None Severity Initially: Moderate Pain Intensity: 0 Pain Scale Used: 0-10 Numeric Character: Dull Aggravating Factor(s): Nothing Alleviating Factor(s): Nothing - no teran x 2 days Associated Signs And Symptoms: Positive: Negative - Allergies/Home Medications Allergies/Adverse Reactions: Allergies Allergy/AdvReac Type Severity Reaction Status Date / Time No Known Allergies Allergy Verified 02/17/18 14:49 Home Medications: Home Medications Multivitamin [Multivitamins] 1 cap PO DAILY 02/17/18 [History Confirmed 02/17/18 ] PMH/Surg Hx/FS Hx/Imm Hx Previously Healthy: Yes Cardiovascular History: Pacemaker/ICD - Surgical History Surgical History: Yes Surgery Procedure, Year, and Place: Appendectomy, Bilat. Knee Replacement; Bilateral Arthroscopy. pacemaker, cataracts - Family History Known Family History: Negative: Cardiac Disease, Hypertension, Diabetes - Social History Alcohol Use: None Substance Use Type: None Smoking Status (MU): Never Smoked Tobacco - Immunization History Most Recent Influenza Vaccination: 2016 Most Recent Tetanus Shot: 2005 Most Recent Pneumonia Vaccination: 2000 Review of Systems Constitutional: Negative Skin: Negative Eyes: Negative ENT: Negative Respiratory: Negative Cardiovascular: Negative Gastrointestinal: Negative Genitourinary: Negative Motor: Negative Neurovascular: Negative Musculoskeletal: Negative Neurological: Negative Psychological: Negative Is Patient Immunocompromised?: No All Other Systems Reviewed And Are Negative: Yes Physical Exam Triage Information Reviewed: Yes Appearance: Well-Appearing, No Pain Distress, Well-Nourished Vital Signs: Initial Vital Signs Temp 98.1 F 02/17/18 14:44 Pulse 84 02/17/18 14:44 Resp 16 02/17/18 14:44 BP 125/91 02/17/18 14:44 Pulse Ox 99 02/17/18 14:44 Vital Signs Reviewed: Yes Eyes: Positive: Conjunctiva Clear, Other: - eomi/perrl, fundi benign Neck: Positive: Supple, Nontender, No Lymphadenopathy Respiratory: Positive: Lungs clear, Normal breath sounds, No respiratory distress, No accessory muscle use Cardiovascular: Positive: RRR, No Murmur Musculoskeletal: Positive: ROM Intact, No Edema Neurological: Positive: Alert, Muscle Tone Normal, Other: - nonfocal exam, GCS 15/15 Psychological Exam: Normal Skin Exam: Normal Head Injury Course/Dx - Differential Dx/Diagnosis Provider Diagnoses: head injury. scalp contusion Discharge - Sign-Out/Discharge Documenting (check all that apply): Discharge/Admit/Transfer - Discharge Plan Condition: Stable Disposition: HOME Patient Education Materials: Head Injury (ED) Referrals: Kishan Raymond MD [Primary Care Provider] - If Needed Additional Instructions: recheck for headache not controlled by tylenol nausea vomiting confusion - Billing Disposition and Condition Condition: STABLE Disposition: HOME Images Head: 1 - 1 cm tender hematoma
== END 2018-02-17 15:30 | disposition home or self-care (01) ==
LOC: UCEAST 14:24
DX: S09.90XA Unspecified injury of head, initial encounter (principal); S00.03XA Contusion of scalp, initial encounter; W00.0XXA Fall on same level due to ice and snow, initial encounter; Y93.29 Activity, other involving ice and snow; Y92.39 Other specified sports and athletic area as the place of occurrence of the external cause; Z95.810 Presence of automatic (implantable) cardiac defibrillator; Z96.653 Presence of artificial knee joint, bilateral
CPT/HCPCS: 99212; G0463

== ENCOUNTER 2018-10-15 16:12 | Emergency (ER) | payer MEDICARE, OTHER ==
[2018-10-15] MEDS ORDERED: NS 0.9% 1000 ML* 1,000 ML IV ONE (18:56)
--- NOTE | 2018-10-15 18:59 | ED ---
Dizziness - HPI Summary HPI Summary: An 83 y/o M presents to ED with c/o brief syncope onset 151. Pt was at his private yoga class, and feeling at baseline. He suddenly fell out of his chair to his floor. Associated sx: ecchymosis to L orbit which he hit on a side table. He denies CP. Pt is unsure if he was attempting to rise from his chair at onset. He states hes never had a similar syncopal episode, but has had intermittent episodes of very mild, brief dizziness throughout the past year. He does not find these episodes worrying and limiting in anyway. PMHx: He had a pacemaker placed [address] 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 It was placed because he was having a HR under 60 bpm. He typically ambulates with a cane. - History Of Current Complaint Chief Complaint: EDDizziness Stated Complaint: FALL/DIZZY Time Seen by Provider: 10/15/18 18:56 Hx Obtained From: Patient Onset/Duration: Unknown, Resolved, Suddenly Timing: Seconds Severity Initially: Moderate Severity Currently: None Character: Unable To Describe Alleviating Factor(s): Other - pos: spontaneous resolution Associated Signs And Symptoms: Positive: Other: - pos: ecchymosis to L eye. Negative: Chest Pain, Inability to Walk - Allergies/Home Medications Allergies/Adverse Reactions: Allergies Allergy/AdvReac Type Severity Reaction Status Date / Time No Known Allergies Allergy Verified 10/15/18 16:30 PMH/Surg Hx/FS Hx/Imm Hx Previously Healthy: No Endocrine/Hematology History: Denies: Hx Diabetes, Hx Thyroid Disease, Hx Anemia Cardiovascular History: Reports: Hx Angina, Hx Auto Implanted Cardiovert Defib, Hx Pacemaker/ICD, Other Cardiovascular Problems/Disorders - paroxysmal atrial fibrillation Denies: Hx Coronary Artery Disease, Hx Hypercholesterolemia, Hx Hypertension , Hx Myocardial Infarction, Hx Peripheral Vascular Disease Respiratory History: Reports: Hx Pneumonia - recent, Other Respiratory Problems/ Disorders - PNEUMONIA Denies: Hx Asthma, Hx Chronic Obstructive Pulmonary Disease (COPD) GI History: Reports: Hx Irritable Bowel Denies: Hx Jaundice History: Reports: Hx Benign Prostatic Hyperplasia Denies: Hx Renal Disease Musculoskeletal History: Reports: Hx Back Problems, Other Musculoskeletal History - Resloved Herniated Disk, Bilat Knee Replacement Denies: Hx Arthritis, Hx Osteoporosis Sensory History: Reports: Hx Contacts or Glasses Opthamlomology History: Reports: Hx Contacts or Glasses Neurological History: Reports: Other Neuro Impairments/Disorders - admitted with hyponatremia and ams Denies: Hx Headaches, Hx Seizures, Hx Transient Ischemic Attacks (TIA) - Surgical History Surgery Procedure, Year, and Place: Appendectomy, Bilat. Knee Replacement; Bilateral Arthroscopy. pacemaker, cataracts Infectious Disease History: No Infectious Disease History: Reports: Hx Hepatitis Denies: Traveled Outside the [place] in Last 30 Days - Family History Known Family History: Negative: Cardiac Disease, Hypertension, Diabetes - Social History Occupation: Retired Lives: With Family Alcohol Use: None Hx Substance Use: No Substance Use Type: Reports: None Hx Tobacco Use: No Smoking Status (MU): Never Smoked Tobacco Review of Systems Negative: Chest Pain Positive: Bruising - L eye Positive: Syncope - brief All Other Systems Reviewed And Are Negative: Yes Physical Exam - Summary Physical Exam Summary: Appearance: Well-appearing, Well-nourished, lying in bed comfortably Skin: Warm, dry, no obvious rash. Periorbital ecchymosis on L Eyes: sclera anicteric, no conjunctival pallor ENT: mucous membranes moist, pharynx appears normal Neck: Supple, nontender Respiratory: Clear to auscultation, no signs of respiratory distress Cardiovascular: Normal S1, S2. No murmurs. Normal distal pulses in tibial and radial bilaterally. Abdomen: Soft, nontender, normal active bowel sounds present Musculoskeletal: Normal, Strength/ROM Intact, Motor function in all 4 extremities is normal and symmetric. There is no rigidity or tremor noted. Neurological: A&Ox3, awake and alert, mentation is normal, speech is fluent and appropriate, Level of consciousness nml. The patient is alert and oriented. Cranial nerves are grossly intact. Gaze is conjugate and without nystagmus. Peripheral vision is intact to confrontation. There are no gross sensory abnormalities to light touch. There is no truncal or fine motor ataxia. Gait is normal. Psychiatric: affect is normal, does not appear anxious or depressed Triage Information Reviewed: Yes Vital Signs On Initial Exam: Initial Vitals Temp Pulse Resp BP Pulse Ox 98.4 F 61 14 150/101 99 10/15/18 16:26 10/15/18 16:26 10/15/18 16:26 10/15/18 16:26 10/15/18 16:26 Vital Signs Reviewed: Yes - Jocy Coma Scale Best Eye Response: 4 - Spontaneous Best Motor Response: 6 - Obeys Commands Best Verbal Response: 5 - Oriented Coma Scale Total: 15 Diagnostics - Vital Signs Vital Signs Temp Pulse Resp BP Pulse Ox 10/15/18 16:26 98.4 F 61 14 150/101 99 - Laboratory Result Diagrams: 10/15/18 19:53 10/15/18 19:53 Lab Statement: Any lab studies that have been ordered have been reviewed, and results considered in the medical decision making process. - CT BRAIN CT Interpretation Completed By: Radiologist Summary of CT Findings: IMPRESSION: 1. No acute intracranial abnormality. Age- related atrophy and chronic white matter ischemic changes as above. 2. Soft tissue swelling over left eye and left lateral orbital rim. ED provider has reviewed this report. - EKG 1932 Cardiac Rate: Other Rate - Atrial-Paced: 66 bpm Summary of EKG Findings: Ventricular premature complex, Incomplete RBBB and LAFB. Re-Evaluation - Re-Evaluation 1 Re-Evaluation Time: 20:42 Change: Improved Comment: Discussing labs, CT results and plans for dispo. Dizzy Course/Dx - Course Assessment/Plan: Pt is an 83 y/o M presenting after a brief syncopal episode onset 1514. Pt was at his private yoga class, and feeling at baseline all day. He suddenly fell out of his chair to his floor. Associated sx: periorbital ecchymosis on L when he hit a side table. Brain CT, labs and UA results are unremarkable. Will D/C pt home to f/u with his PCP. - Diagnoses Provider Diagnoses: Periorbital contusion of left eye, Fall Discharge - Sign-Out/Discharge Documenting (check all that apply): Patient Departure - D/C - Discharge Plan Condition: Good Disposition: HOME Patient Education Materials: Head Injury (ED), Contusion in Adults (ED) Referrals: Kishan Raymond MD [Primary Care Provider] - If Needed - Billing Disposition and Condition Condition: GOOD Disposition: Home - Attestation Statements Document Initiated by Scribe: Yes Documenting Scribe: Lopez Chaudhary Provider For Whom Scribe is Documenting (Include Credential): Dr. Naldo Schaeffer MD Scribe Attestation: I, Lopez Chaudhary, scribed for Dr. Naldo Schaeffer MD on 10/16/18 at 0110. Scribe Documentation Reviewed: Yes Provider Attestation: The documentation as recorded by the scribe, Lopez Chaudhary accurately reflects the service I personally performed and the decisions made by me, Dr. Naldo Schaeffer MD Status of Scribe Document: Viewed
[2018-10-15 20:06] LABS: ABS Basophils 0.1 10^3/ul (0-0.2); ABS Eosinophils 0.1 10^3/ul (0-0.6); ABS Lymphocytes 1.4 10^3/ul (1.0-4.8); ABS Monocytes 0.6 10^3/ul (0-0.8); ABS Neutrophils 5.3 10^3/ul (1.5-7.7); ABS Nucleated RBC 0 10^3/ul; Eosinophil % 0.9 %; Hematocrit 46 % (42-52); Hemoglobin 15.5 g/dl (14.0-18.0); Lymphocyte % 18.7 %; Mean Corpuscular HGB Conc 34 g/dl (31-36); Mean Corpuscular Hemoglobin 31 pg (27-31); Mean Corpuscular Volume 91 fL (80-94); Mean Platelet Volume 7.1 fL (7.4-10.4); Nucleated Red Blood Cells % 0.1; Platelet Count 187 10^3/ul (150-450); Red Blood Count 5.04 10^6/ul (4.00-5.40); Red Cell Distribution Width 14 % (10.5-15); White Blood Count 7.4 10^3/ul (3.5-10.8)
[2018-10-15 20:20] LABS: Urine Appearance Clear; Urine Bilirubin Negative (Negative); Urine Blood Negative (Negative); Urine Color Yellow; Urine Glucose Negative (Negative); Urine Ketones Negative (Negative); Urine Nitrite Negative (Negative); Urine Protein Negative (Negative); Urine Specific Gravity 1.012 (1.010-1.030); Urine Urobilinogen Negative (Negative)
[2018-10-15 20:23] LABS: Albumin 3.8 g/dL (3.2-5.2); Albumin/Globulin Ratio 1.3 (1-3); BUN/Creatinine Ratio 25.5 (8-20); Calcium 9.2 mg/dL (8.6-10.3); EGFR Non-African American 76.5 (>60); Globulin 2.9 g/dL (2-4); Potassium 4.2 mmol/L (3.5-5.0); Total Bilirubin 1.2 mg/dL (0.2-1.0); Total Protein 6.7 g/dL (6.4-8.9)
[2018-10-15 20:48] LABS: TSH (Thyroid Stimulating Horm) 3.22 mcIU/mL (0.34-5.60)
[2018-10-15 21:09] VITALS: BP 144/92
== END 2018-10-15 21:25 | disposition home or self-care (01) ==
LOC: ED 16:12
DX: S05.12XA Contusion of eyeball and orbital tissues, left eye, initial encounter (principal); W07.XXXA Fall from chair, initial encounter; Y93.42 Activity, yoga; Y92.9 Unspecified place or not applicable; R55 Syncope and collapse; I45.2 Bifascicular block; Z95.810 Presence of automatic (implantable) cardiac defibrillator
CPT/HCPCS: 36415; 70450; 80053; 81003; 83605; 84443; 84484; 85025; 93005; 96360; 99283